=== PATIENT | female | born 1955 | race African-American/Black ===

== ENCOUNTER 2017-08-03 17:11 | Emergency (ER) | END 2017-08-03 19:20 | disposition left against medical advice (07) | LOC: ER 17:11 | DX: Z53.21 Procedure and treatment not carried out due to patient leaving prior to being seen by health care provider (principal) | CPT/HCPCS: 82962 ==

== ENCOUNTER → 2017-08-28 | Outpatient (CLI) | payer MEDICARE ==
[2017-08-28 12:29] LABS: ABSOLUTE MONOCYTES (AUTO) 0.2 10^3/uL (0.1-1.4); ABSOLUTE NEUT (AUTO) 1.4 10^3/uL (1.7-8.2); BASOPHILS % (AUTO) 0.3 % (0-2); HEMATOCRIT 41.7 % (36.0-47.0); HEMOGLOBIN 13.9 g/dL (12.0-15.5); MEAN CORPUSCULAR HEMOGLOBIN 30.8 pg (27.0-33.4); MEAN CORPUSCULAR HGB CONC 33.4 g/dL (32.0-36.0); MEAN CORPUSCULAR VOLUME 92 fl (80-97); MONOCYTES % (AUTO) 6.9 % (3-13); PLATELET COUNT 111 10^3/uL (150-450); RED BLOOD COUNT 4.53 10^6/uL (3.72-5.28); RED CELL DISTRIBUTION WIDTH 14.9 % (11.5-14.0); SEGMENTED NEUTROPHILS % (AUTO) 54.8 % (42-78); TOTAL CELLS COUNTED % (AUTO) 100 %; WHITE BLOOD COUNT 2.6 10^3/uL (4.0-10.5)
[2017-08-28 12:38] LABS: ALANINE AMINOTRANSFERASE 37 U/L (9-52); ALKALINE PHOSPHATASE 346 U/L (38-126); ANION GAP 19 (5-19); ASPARTATE AMINO TRANSFERASE 40 U/L (14-36); BILIRUBIN,DIRECT 0.4 mg/dL (0.0-0.4); BILIRUBIN,TOTAL 0.8 mg/dL (0.2-1.3); BLOOD UREA NITROGEN 24 mg/dL (7-20); CALCIUM 11.2 mg/dL (8.4-10.2); CARBON DIOXIDE 25 mmol/L (22-30); CHLORIDE 93 mmol/L (98-107); POTASSIUM 4.9 mmol/L (3.6-5.0); SODIUM 136.6 mmol/L (137-145); TOTAL PROTEIN 8.5 g/dL (6.3-8.2)
[2017-08-28 14:09] LABS: GLUCOSE 622 mg/dL (75-110)
== END ==
LOC: OD 11:05
PROVIDERS: ATTEND Family Medicine
DX: E78.2 Mixed hyperlipidemia (principal); D64.9 Anemia, unspecified; E11.9 Type 2 diabetes mellitus without complications
CPT/HCPCS: 36415; 80053; 82465; 83036; 85025

== ENCOUNTER 2017-09-08 16:09 | Inpatient (IN) | payer MEDICARE ==
[2017-09-08] MEDS ORDERED: NORMAL SALINE 1000 ML 1,000 ML IV PRN ×3 (16:53→19:42)
--- NOTE | 2017-09-08 16:56 | ER Document Report ---
ED General - General Chief Complaint: Altered Mental Status Stated Complaint: POSSIBLE HIGH BLOOD SUGAR Time Seen by Provider: 09/08/17 16:50 Mode of Arrival: Ambulatory Information source: Patient Notes: This is a 62-year-old female with a complicated medical history including insulin requiring diabetes, seizures, multiple myeloma (followed in [place] by oncology), lupus, CHF, hypertension. The patient was usual state of health until today when the patient's son states that she has been confused and has had generalized weakness. He states that she had a syncopal episode while in the car. EMS was called to the scene and the patient was hypotensive with a blood pressure of 94/63. TRAVEL OUTSIDE OF THE [place] IN LAST 30 DAYS: No - HPI Onset: This morning Onset/Duration: Gradual Quality of pain: No pain Severity: None Pain Level: Denies Associated symptoms: denies: Chills, Fever, Shortness of breath Exacerbated by: Denies Relieved by: Denies Similar symptoms previously: No Recently seen / treated by doctor: No - Related Data Allergies/Adverse Reactions: No Known Allergies Allergy (Verified 08/03/17 17:12) Past Medical History - General Information source: Relative - Social History Smoking Status: Never Smoker - Since son Cigarette use (# per day): No Chew tobacco use (# tins/day): No Frequency of alcohol use: None Drug Abuse: None Lives with: Family Family History: None Patient has suicidal ideation: No Patient has homicidal ideation: No - Past Medical History Cardiac Medical History: Reports: Hx Congestive Heart Failure Pulmonary Medical History: Reports: None EENT Medical History: Reports: None Neurological Medical History: Reports: Hx Seizures Endocrine Medical History: Reports: Hx Diabetes Mellitus Type 2 Renal/ Medical History: Reports: None Malignancy Medical History: Reports: Other - Multiple myeloma GI Medical History: Reports: None Musculoskeltal Medical History: Reports None Skin Medical History: Reports None Psychiatric Medical History: Reports: None Traumatic Medical History: Reports: None Infectious Medical History: Reports: None Past Surgical History: Reports: Other - Right chest wall port Review of Systems - Review of Systems Constitutional: denies: Chills, Fever EENT: No symptoms reported Cardiovascular: Syncope Respiratory: No symptoms reported Gastrointestinal: No symptoms reported Genitourinary: No symptoms reported Female Genitourinary: No symptoms reported Musculoskeletal: No symptoms reported Skin: No symptoms reported Hematologic/Lymphatic: No symptoms reported Neurological/Psychological: See HPI Physical Exam - Vital signs Vitals: Pulse Resp BP Pulse Ox 83 14 92/69 L 93 09/08/17 16:15 09/08/17 16:15 09/08/17 16:15 09/08/17 16:15 Notes: Physical exam: GENERAL: XT-year-old female, appears quite weak (generalized), 92/62, pulse 70 ( paced), O2 sat 98% on room air, temperature 92.9 rectally. HEAD: Atraumatic, normocephalic. EYES: Pupils equal round and reactive to light, extraocular movements intact, sclera anicteric, conjunctiva are normal. ENT: TMs normal, nares patent, oropharynx clear without exudates. Moist mucous membranes. NECK: Normal range of motion, supple without obvious mass or JVD. LUNGS: Breath sounds clear to auscultation bilaterally and equal. No wheezes rales or rhonchi. HEART: Regular rate and rhythm without murmurs, rubs or gallops. ABDOMEN: Soft, normoactive bowel sounds. No tenderness to palpation. No guarding, no rebound. No masses appreciated. Rectal: Brown stool, sent for study EXTREMITIES: Normal range of motion, no pitting or edema. No clubbing or cyanosis. NEUROLOGICAL: Patient appears generalized weak, there is no photophobia, her neck is supple and there is no pain elicited by moving her neck. Does appear to be moving all extremities. PSYCH: Normal mood, normal affect. SKIN: Warm, Dry, normal turgor, no rashes or lesions noted. Course - Re-evaluation Re-evalutation: 09/08/17 18:07 Note: The plan thus far includes: IV normal saline 2 L (warmed). Followed by half-normal saline with 20 KCl, warming blanket. IV insulin, IV insulin drip IV antibiotics for UTI (ceftriaxone) Lactic acid 1.5 Venous pH pending Thyroid function panel pending Admit to the ICU - Vital Signs Vital signs: Temp Pulse Resp BP Pulse Ox 62 13 91/69 L 100 09/08/17 17:15 09/08/17 23:37 09/08/17 23:37 09/08/17 23:37 - Laboratory Result Diagrams: 09/08/17 20:08 09/08/17 19:40 Laboratory results interpreted by me: 09/08/17 09/08/17 09/08/17 16:29 16:29 16:29 WBC 2.5 L RDW 15.4 H Plt Count 108 L Absolute Neutrophils 1.6 L Chloride 96 L Anion Gap 24 H BUN 34 H Creatinine 1.49 H Est GFR ( Amer) 43 L Est GFR (Non-Af Amer) 36 L Glucose 887 H* Calcium 10.4 H Magnesium 2.4 H Alkaline Phosphatase 300 H CK-MB (CK-2) Free T3 pg/mL Urine Protein Urine Glucose (UA) Urine Ketones Urine Blood Ur Leukocyte Esterase 09/08/17 09/08/17 09/08/17 16:29 16:29 17:02 WBC RDW Plt Count Absolute Neutrophils Chloride Anion Gap BUN Creatinine Est GFR ( Amer) Est GFR (Non-Af Amer) Glucose Calcium Magnesium Alkaline Phosphatase CK-MB (CK-2) 6.13 H Free T3 pg/mL 1.97 L Urine Protein 30 H Urine Glucose (UA) >=500 H Urine Ketones 20 H Urine Blood SMALL H Ur Leukocyte Esterase MODERATE H - Diagnostic Test Radiology reviewed: Image reviewed, Reports reviewed - X-ray shows no infiltrates, CT head shows no acute infarct (there is evidence of an old infarct ). - EKG Interpretation by Me Rhythm: Other - Paced rhythm with a ventricular rate of 63, 100% capture Critical Care Note - Critical Care Note Total time excluding time spent on procedures (mins): 90 Discharge - Discharge Clinical Impression: DKA, Acute kidney injury, UTI Condition: Serious Disposition: ADMITTED INPATIENT Admitting Provider: Hospitalist - Dr Erazo Unit Admitted: ICU
[2017-09-08 17:02] LABS: ABSOLUTE LYMPHOCYTES (AUTO) 0.8 10^3/uL (0.5-4.7); ABSOLUTE MONOCYTES (AUTO) 0.1 10^3/uL (0.1-1.4); ABSOLUTE NEUT (AUTO) 1.6 10^3/uL (1.7-8.2); BASOPHILS % (AUTO) 0.4 % (0-2); EOSINOPHILS % (AUTO) 0.2 % (0-6); HEMOGLOBIN 12.9 g/dL (12.0-15.5); LYMPHOCYTES % (AUTO) 30.6 % (13-45); MEAN CORPUSCULAR HEMOGLOBIN 30.6 pg (27.0-33.4); MEAN CORPUSCULAR HGB CONC 32.3 g/dL (32.0-36.0); MEAN CORPUSCULAR VOLUME 95 fl (80-97); MONOCYTES % (AUTO) 5.7 % (3-13); PLATELET COUNT 108 10^3/uL (150-450); RED BLOOD COUNT 4.21 10^6/uL (3.72-5.28); RED CELL DISTRIBUTION WIDTH 15.4 % (11.5-14.0); SEGMENTED NEUTROPHILS % (AUTO) 63.1 % (42-78); TOTAL CELLS COUNTED % (AUTO) 100 %; WHITE BLOOD COUNT 2.5 10^3/uL (4.0-10.5)
[2017-09-08 17:10] LABS: ALANINE AMINOTRANSFERASE 29 U/L (9-52); ALBUMIN 4.3 g/dL (3.5-5.0); ALKALINE PHOSPHATASE 300 U/L (38-126); ASPARTATE AMINO TRANSFERASE 21 U/L (14-36); BILIRUBIN,DIRECT 0.4 mg/dL (0.0-0.4); BILIRUBIN,TOTAL 0.5 mg/dL (0.2-1.3); BLOOD UREA NITROGEN 34 mg/dL (7-20); CALCIUM 10.4 mg/dL (8.4-10.2); CARBON DIOXIDE 22 mmol/L (22-30); CHLORIDE 96 mmol/L (98-107); POTASSIUM 3.9 mmol/L (3.6-5.0); SODIUM 141.9 mmol/L (137-145); TOTAL PROTEIN 7.4 g/dL (6.3-8.2)
[2017-09-08 17:32] LABS: APPEARANCE,URINE CLOUDY; BILIRUBIN,URINE NEGATIVE (NEGATIVE); COLOR,URINE YELLOW; GLUCOSE, URINE >=500 mg/dL (NEGATIVE); KETONES,URINE 20 mg/dL (NEGATIVE); LEUKOCYTE ESTERASE,URINE MODERATE (NEGATIVE); NITRITE,URINE NEGATIVE (NEGATIVE); PROTEIN,URINE 30 mg/dL (NEGATIVE); URINE SPECIFIC GRAVITY 1.032; UROBILINOGEN,URINE NEGATIVE mg/dL (<2.0)
[2017-09-08 17:34] LABS: ANION GAP 24 (5-19)
--- NOTE | 2017-09-08 17:34 | RADIOLOGY REPORT (SQ) ---
EXAM DESCRIPTION: CHEST SINGLE VIEW COMPLETED DATE/TIME: 09/08/2017 5:19 pm REASON FOR STUDY: syncope COMPARISON: None. EXAM PARAMETERS: NUMBER OF VIEWS: One view. TECHNIQUE: Single frontal radiographic view of the chest acquired. RADIATION DOSE: NA LIMITATIONS: None. FINDINGS: LUNGS AND PLEURA: No opacities, masses or pneumothorax. No pleural effusion. MEDIASTINUM AND HILAR STRUCTURES: No masses. Contour normal. HEART AND VASCULAR STRUCTURES: Heart normal in size. Normal vasculature. BONES: No acute findings. HARDWARE: Vascular access port. Pacemaker. OTHER: No other significant finding. IMPRESSION: NO ACUTE RADIOGRAPHIC FINDING IN THE CHEST. TECHNICAL DOCUMENTATION: JOB ID: [id number] [employer]- All Rights Reserved
[2017-09-08 17:35] LABS: GLUCOSE 887 mg/dL (75-110)
--- NOTE | 2017-09-08 17:36 | RADIOLOGY REPORT (SQ) ---
EXAM DESCRIPTION: CT HEAD WITHOUT COMPLETED DATE/TIME: 09/08/2017 5:25 pm REASON FOR STUDY: delta ms COMPARISON: None. TECHNIQUE: Axial images acquired through the brain without intravenous contrast. Images reviewed wi th bone, brain and subdural windows. Images stored on PACS. All CT scanners at this facility use dose modulation, iterative reconstruction, and/or weight based d osing when appropriate to reduce radiation dose to as low as reasonably achievable (ALARA). [facility]: Dose Right [facility]: CareDose [facility]: Dose Right [facility]: Teradose 4D [facility]: [employer] RADIATION DOSE: CT Rad equipment meets quality standard of care and radiation dose reduction techniq ues were employed. CTDIvol: 64.6 mGy. DLP: 1163 mGy-cm. mGy. LIMITATIONS: None. FINDINGS: VENTRICLES: Normal size and contour. CEREBRUM: No masses. No hemorrhage. No midline shift. No evidence for acute infarction. Normal gra y/white matter differentiation. Decreased attenuation in the posterior left parietal lobe. CEREBELLUM: No masses. No hemorrhage. No alteration of density. No evidence for acute infarction. EXTRAAXIAL SPACES: No fluid collections. No masses. ORBITS AND GLOBE: No intra- or extraconal masses. Normal contour of globe without masses. CALVARIUM: No fracture. PARANASAL SINUSES: No fluid or mucosal thickening. SOFT TISSUES: No mass or hematoma. OTHER: No other significant finding. IMPRESSION: DECREASED ATTENUATION IN THE POSTERIOR LEFT PARIETAL LOBE, PRESUMED DUE TO OLD INFARCT. NO APPARENT ACUTE FINDINGS. EVIDENCE OF ACUTE STROKE: NO. COMMENT: Quality ID # [id number]: Final reports with documentation of one or more dose reduction techniques (e.g., Automated exposure control, adjustment of the mA and/or kV according to patient size, use of iterative reconstruction technique) TECHNICAL DOCUMENTATION: JOB ID: [id number] [employer]- All Rights Reserved
[2017-09-08 17:38] LABS: CREATINE KINASE MB 6.13 ng/mL (<4.55)
[2017-09-08 17:40] LABS: TROPONIN I 0.056 ng/mL
[2017-09-08 17:44] LABS: FREE T3 1.97 pg/mL (2.77-5.27); FREE T4 (FREE THYROXINE) 1.36 ng/dL (0.78-2.19)
[2017-09-08] MEDS ORDERED: CEFTRIAXONE 1 GM/D5W RTU 1 GM/50 ML RTUPB IV ONE (17:50)
[2017-09-08] MEDS ORDERED: INSULIN REG, HUMAN 100 UNIT/ML 3 ML VIAL (PYX) IV ONE (17:54)
[2017-09-08] MEDS ORDERED: POTASSI CL 20 MEQ/1/2NS 1L 20 MEQ/1,000 ML RTUINJ IV ONE (17:55)
[2017-09-08] MEDS ORDERED: DEXTROSE 50%-WATER 25 GM/50 ML DISP.SYRIN IV PRN ×6 (17:56→21:29)
[2017-09-08] MEDS ORDERED: GLUCAGON,HUMAN RECOMB 1 MG INJ IM PRN ×2 (17:56→21:29)
[2017-09-08] MEDS ORDERED: DEXTROSE 40% GEL 15 GM TUBE PO PRN ×6 (17:56→21:29)
[2017-09-08] MEDS ORDERED: NORMAL SALINE 100 ML with INSULIN REGULAR, HUMAN 100 UNIT IV PRN ×2 (17:56)
[2017-09-08 17:58] LABS: THYROID STIMULATING HORMONE 0.62 uIU/mL (0.47-4.68)
--- NOTE | 2017-09-08 17:58 | EKG REPORT ---
SEVERITY:- ABNORMAL ECG - ATRIAL-SENSED VENTRICULAR-PACED RHYTHM : Confirmed by: Emanuel Iqbal MD 08-Sep-2017 17:57:41
[2017-09-08] MEDS ORDERED: CEFTRIAXONE INJ 1000 MG VIAL ONE (18:15)
[2017-09-08] MEDS ORDERED: GLUCAGON,HUMAN RECOMB 1 MG INJ SUBCUT PRN (19:18)
[2017-09-08] MEDS ORDERED: RINGERS SOLUTION,LACTATED 1,000 ML IV PRN (19:18)
[2017-09-08] MEDS ORDERED: INSULIN REG, HUMAN 100 UNIT/ML 3 ML VIAL (PYX) ONE (19:20)
[2017-09-08 19:31] LABS: VENOUS BLOOD BASE EXCESS -2.3 mmol/L; VENOUS BLOOD PCO2 53.5 mmHg (35-63); VENOUS BLOOD PH 7.29 (7.30-7.42)
[2017-09-08 20:11] LABS: BLOOD UREA NITROGEN 34 mg/dL (7-20); CALCIUM 10.1 mg/dL (8.4-10.2); CARBON DIOXIDE 24 mmol/L (22-30); CHLORIDE 103 mmol/L (98-107); LIPASE 710.3 U/L (23-300); PHOSPHORUS 3.4 mg/dL (2.5-4.5); POTASSIUM 3.4 mmol/L (3.6-5.0); SODIUM 147.8 mmol/L (137-145)
[2017-09-08 20:20] LABS: GLUCOSE 607 mg/dL (75-110)
[2017-09-08 20:21] LABS: ANION GAP 21 (5-19)
[2017-09-08 20:22] LABS: HEMOGLOBIN 12.7 g/dL (12.0-15.5); MEAN CORPUSCULAR HEMOGLOBIN 30.3 pg (27.0-33.4); MEAN CORPUSCULAR HGB CONC 32.6 g/dL (32.0-36.0); MEAN CORPUSCULAR VOLUME 93 fl (80-97); PLATELET COUNT 102 10^3/uL (150-450); RED BLOOD COUNT 4.19 10^6/uL (3.72-5.28); RED CELL DISTRIBUTION WIDTH 15.1 % (11.5-14.0); WHITE BLOOD COUNT 3.4 10^3/uL (4.0-10.5)
--- NOTE | 2017-09-08 20:33 | PDOC H&P ---
History of Present Illness Admission Date/PCP: 09/08/17 18:24 IVONE ZARATE, Patient complains of: Patient does not verbally complain of anything she indicates that she is very thirsty. History of Present Illness: BISHNU WAYNE is a 62 year old female This is a 62-year-old woman with a complicated medical history including insulin requiring diabetes, seizures, multiple myeloma (followed in [place] by oncology), lupus, CHF unclear type, hypertension. The patient was usual state of health until today when the patient's son states that she has been confused and has had generalized weakness. He states that she had a syncopal episode while in the car. EMS was called to the scene and the patient was hypotensive with a blood pressure of 94/63. She was brought to the ER where she was found to have a glucose of greater than 800. She also has urinary tract infection. At this point she is found to have hyperosmolar nonketotic state with urinary tract infection. Broader workup is in process. Patient is admitted to the hospitalist service and will be going to the ICU. Patient was able to arouse to speak with me some, actually she did not speak she just nodded. She did not answer all questions. She nodded yes to are you breathing okay. She nodded no to are you having any pain. She nodded yes to are you feeling weak. Mostly she was just pointing to her mouth and when I asked if she was thirsty she nodded yes. She was not able to give me her son's information. There is no other family present at the bedside. Her vitals are normal on my evaluation in the ER. I am unable to obtain review of systems other than what I have already dictated.. I have reviewed her labs and studies. Past Medical History Medical History: Other - By report patient has systemic lupus erythematosus Cardiac Medical History: Reports: Congestive Heart Failure, Other - This history is per chart review patient is unable to answer these question Neurological Medical History: Reports: Seizures Endocrine Medical History: Reports: Diabetes Mellitus Type 2 Malignancy Medical History: Reports: Other - Multiple myeloma, receiving oncology care in [place] Hematology: Reports: Anemia Past Surgical History Past Surgical History: Reports: Other - Patient has a right chest port. No other surgical history known. Social History Smoking Status: Unknown if Ever Smoked Hx Recreational Drug Use: No Family History Parental Family History Reviewed: No - Patient is not answering questions consistently, she is critically ill Children Family History Reviewed: No Sibling(s) Family History Reviewed.: No Medication/Allergy Allergies/Adverse Reactions: No Known Allergies Allergy (Verified 08/03/17 17:12) Review of Systems ROS unobtainable: - Not obtained review of systems completely. She answered a few questions by nodding and those answers are found in the history of present illness., ,  Physical Exam Vital Signs: Temp Pulse Resp BP Pulse Ox 62 12 92/62 L 99 09/08/17 17:15 09/08/17 17:15 09/08/17 17:15 09/08/17 17:15 Intake & Output 09/07/17 09/08/17 09/09/17 06:59 06:59 06:59 Output Total 300 Balance -300 Weight 66.4 kg General appearance: PRESENT: mild distress, thin. ABSENT: cooperative Head exam: PRESENT: atraumatic, normocephalic Eye exam: PRESENT: conjunctiva pink, PERRLA. ABSENT: scleral icterus Ear exam: PRESENT: normal external ear exam. ABSENT: bleeding Mouth exam: PRESENT: dry mucosa Neck exam: ABSENT: lymphadenopathy Respiratory exam: PRESENT: clear to auscultation ashley, unlabored. ABSENT: rales , wheezes Cardiovascular exam: PRESENT: RRR. ABSENT: systolic murmur Pulses: PRESENT: normal radial pulses GI/Abdominal exam: PRESENT: hypoactive bowel sounds, soft. ABSENT: distended, tenderness Rectal exam: PRESENT: deferred Extremities exam: ABSENT: pedal edema Musculoskeletal exam: ABSENT: full ROM Neurological exam: PRESENT: awake, oriented to person. ABSENT: oriented to place, oriented to situation Psychiatric exam: PRESENT: anxious Skin exam: PRESENT: dry - Skin is slightly cool Results Laboratory Results: 09/08/17 19:10 VBG pH 7.29 L VBG pCO2 53.5 VBG HCO3 25.0 VBG Base Excess -2.3 Impressions: Chest X-Ray 09/08/17 16:56 IMPRESSION: NO ACUTE RADIOGRAPHIC FINDING IN THE CHEST. Head CT 09/08/17 16:56 IMPRESSION: DECREASED ATTENUATION IN THE POSTERIOR LEFT PARIETAL LOBE, PRESUMED DUE TO OLD INFARCT. NO APPARENT ACUTE FINDINGS. EVIDENCE OF ACUTE STROKE: NO. Assessment & Plan - Diagnosis (1) Hyperosmolar non-ketotic state in patient with type 2 diabetes mellitus Is this a current diagnosis for this admission?: Yes Plan: Patient is being aggressively hydrated with normal saline, she is about to finish her second liter and a third is ordered. CBG has gone down from the 800s to the 500s. Insulin is on hold for now until we get the second liter of fluids and and then will restart the insulin drip.. We will watch closely for respiratory distress given her history of heart failure. CBGs every hour. Basic metabolic panel checks every 2 hours. IV access is poor possibly due to dehydration, port is accessed and surgeon consulted for CVC placement. Pt is protecting airway now. (2) Urinary tract infection Qualifiers: Urinary tract infection type: acute cystitis Is this a current diagnosis for this admission?: Yes Plan: Patient was given a dose of ceftriaxone. Blood cultures and urine culture are pending. Due to severity of illness I will cover her for Pseudomonas with cefepime. I have called the pharmacist to assure renal dosing. (3) Sepsis Is this a current diagnosis for this admission?: Yes Plan: Lactic acid is normal. She however acute metabolic encephalopathy and may have an early sepsis. She will be on cefepime and IV fluids. Cultures and urine culture are pending. Blood gases will be monitored closely. Right now her blood pressure and heart rate are normal. (4) Acute metabolic encephalopathy Is this a current diagnosis for this admission?: Yes Plan: This is probably secondary to hyperosmolar nonketotic state. Head CT is negative. She is moving all extremities spontaneously. Urinary tract infection is being treated. She is being fluid resuscitated. Labs are being monitored carefully. Will monitor closely clinically for other etiology of acute metabolic encephalopathy. Troponin is pending. (5) Dehydration Plan: Likely due to hyperosmolar nonketotic state. She is on her second liter of saline and the third is ordered. The nighttime hospitalist will watch her closely tonight. Black catheter has been placed to keep close track of ins and outs. (6) Type 2 diabetes mellitus Qualifiers: Diabetes mellitus complication status: with hyperosmolarity Diabetes mellitus complication detail: without coma Diabetes mellitus penitentiary insulin use: with emt intermediate use Plan: See above. (7) Multiple myeloma Is this a current diagnosis for this admission?: Yes Plan: Remission status unknown. She is being treated in [place] for multiple myeloma per report given to me by ED. We will try to learn more from family once we can reach them. (8) Lupus (systemic lupus erythematosus) Is this a current diagnosis for this admission?: Yes Plan: Unknown status. Will await family contact. (9) Hypothermia Qualifiers: Encounter type: initial encounter Qualified Code(s): T68.XXXA - Hypothermia , initial encounter Is this a current diagnosis for this admission?: Yes Plan: Patient is currently in a warming blanket and her temperature is increasing. Continue to use warm fluids. ICU transfer is pending. (10) Leukopenia Is this a current diagnosis for this admission?: Yes Plan: Possibly due to sepsis. Or due to acute illness. Repeat CBC is pending. She is being treated for urinary tract infection with cefepime. Will (11) Elevated serum creatinine Is this a current diagnosis for this admission?: Yes Plan: Baseline creatinine unknown. Will keep close track of her renal function. She is being fluid resuscitated. - Time Time Spent: Greater than 70 Minutes Critical Time spent with patient: 35 or more minutes - Inpatient Certification Based on my medical assessment, after consideration of the patient's comorbidities, presenting symptoms, or acuity I expect that the services needed warrant INPATIENT care.: Yes I certify that my determination is in accordance with my understanding of Medicare's requirements for reasonable and necessary INPATIENT services [42 CFR 412.3e].: Yes Medical Necessity: Significant Comorbidiites Make Outpatient Treatment Too Risky , Need Close Monitoring Due to Risk of Patient Decompensation, Need For IV Fluids, Need For Continuous Telemetry Monitoring, Need for IV Antibiotics, Risk of Complication if Not Cared For in Hospital Post Hospital Care: D/C Showroom Salesperson Documentation
[2017-09-08 21:02] LABS: VENOUS BLOOD BASE EXCESS -4.5 mmol/L; VENOUS BLOOD HCO3 24.3 mmol/L (20-32); VENOUS BLOOD PH 7.21 (7.30-7.42)
[2017-09-08] MEDS: POTASSI CL 20 MEQ/1/2NS 1L 20 MEQ/1,000 ML RTUINJ IV SCH (21:54)
[2017-09-08] MEDS: HEPARIN SOD (PORCINE) 5,000 UNIT/ML 1 ML SYRINGE SUBCUT SCH (21:58)
[2017-09-08] MEDS ORDERED: HUM INSULIN NPH/REG INSULIN HM 100 UNIT/1 ML 3 ML SUBCUT ONE (22:07)
--- NOTE | 2017-09-08 23:13 | PDOC CONSULTATION ---
Consultation Consult Date: 09/08/17 Attending physician:: Mariela López Consult reason:: needs central line History of Present Illness Admission Date/PCP: 09/08/17 18:24 IVONE ZARATE, History of Present Illness: 62 yo F type II diabetic patient admitted to the hospitalist with hyperosmolar nonketotic state. She has a mediport in the right internal jugular vein and a pacemaker in the left subclavian vein. She has poor peripheral access and needs multiple iv drips. A central line has been requested. Past Medical History Cardiac Medical History: Reports: Congestive Heart Failure, Other - This history is per chart review patient is unable to answer these question Neurological Medical History: Reports: Seizures Endocrine Medical History: Reports: Diabetes Mellitus Type 2 Malignancy Medical History: Reports: Other - Multiple myeloma, receiving oncology care in [place] Hematology: Reports: Anemia Past Surgical History Past Surgical History: Reports: Other - Patient has a right chest port. No other surgical history known. Social History Smoking Status: Unknown if Ever Smoked Hx Recreational Drug Use: No Family History Parental Family History Reviewed: No Children Family History Reviewed: Unknown Sibling(s) Family History Reviewed.: Unknown Medication/Allergy Allergies/Adverse Reactions: No Known Allergies Allergy (Verified 08/03/17 17:12) Review of Systems Constitutional: PRESENT: weight loss Cardiovascular: PRESENT: other - pacemaker status. ABSENT: as per HPI, chest pain, dyspnea on exertion, edema, orthropnea, palpitations Respiratory: ABSENT: as per HPI, cough, dyspnea, hemoptysis, sputum, other Gastrointestinal: ABSENT: abdominal pain, constipation, diarrhea, hematemesis, hematochezia, nausea, vomiting Genitourinary: ABSENT: dysuria, hematuria Neurological: ABSENT: abnormal gait, abnormal speech, confusion, dizziness, focal weakness, syncope Hematologic/Lymphatic: PRESENT: other - has myeloma Physical Exam Vital Signs: Temp Pulse Resp BP Pulse Ox 62 12 105/76 100 09/08/17 17:15 09/08/17 21:01 09/08/17 21:01 09/08/17 21:01 Intake & Output 09/07/17 09/08/17 09/09/17 06:59 06:59 06:59 Output Total 300 Balance -300 Weight 66.4 kg General appearance: PRESENT: thin Head exam: PRESENT: atraumatic, normocephalic Eye exam: PRESENT: conjunctiva pink, EOMI, PERRLA Ear exam: PRESENT: normal external ear exam Mouth exam: PRESENT: moist Neck exam: PRESENT: other - right IJ mediport in place. ABSENT: carotid bruit, full ROM, JVD, lymphadenopathy, meningismus, tenderness, thyromegaly, tracheal deviation, tracheostomy Cardiovascular exam: PRESENT: +S1, +S2, other - pacemaker present GI/Abdominal exam: PRESENT: soft Neurological exam: PRESENT: awake, other - follows commands Results Laboratory Results: 09/08/17 20:08 09/08/17 19:40 09/08/17 09/08/17 09/08/17 19:10 19:40 20:08 WBC 3.4 L RBC 4.19 Hgb 12.7 Hct 39.0 MCV 93 MCH 30.3 MCHC 32.6 RDW 15.1 H Plt Count 102 L VBG pH 7.29 L VBG pCO2 53.5 VBG HCO3 25.0 VBG Base Excess -2.3 Sodium 147.8 H Potassium 3.4 L Chloride 103 Carbon Dioxide 24 Anion Gap 21 H BUN 34 H Creatinine 1.35 H Est GFR ( Amer) 48 L Est GFR (Non-Af Amer) 40 L Glucose 607 H* Calcium 10.1 Phosphorus 3.4 Magnesium 2.4 H Lipase 710.3 H 09/08/17 20:55 WBC RBC Hgb Hct MCV MCH MCHC RDW Plt Count VBG pH 7.21 L VBG pCO2 62.0 VBG HCO3 24.3 VBG Base Excess -4.5 Sodium Potassium Chloride Carbon Dioxide Anion Gap BUN Creatinine Est GFR ( Amer) Est GFR (Non-Af Amer) Glucose Calcium Phosphorus Magnesium Lipase 09/08/17 20:08 Troponin I 0.055 Impressions: Chest X-Ray 09/08/17 16:56 IMPRESSION: NO ACUTE RADIOGRAPHIC FINDING IN THE CHEST. Head CT 09/08/17 16:56 IMPRESSION: DECREASED ATTENUATION IN THE POSTERIOR LEFT PARIETAL LOBE, PRESUMED DUE TO OLD INFARCT. NO APPARENT ACUTE FINDINGS. EVIDENCE OF ACUTE STROKE: NO. Assessment & Plan - Diagnosis (1) Phlebosclerosis Is this a current diagnosis for this admission?: Yes Plan: For central line insertion - Plan Summary Plan Summary: For central line insertion
--- NOTE | 2017-09-08 23:16 | PDOC PROGRESS REPORT ---
Bedside Procedure - History of Present Illness Indication for Procedure: Phlebosclerosis, Hyperosmolar nonketotic state requiring multiple iv infusi - Central Line Left Internal jugular Time completed: 22:55 Consent obtained: Yes - I spoke over the phone with the son and the nurses double signed Central line pre-insertion: Sterile PPE donned, Chloraprep applied, Sterile drapes applied Central line size (Fr.): 7 Central line lumen type: Triple Anesthetic type: 1% Lidocaine mL's of anesthesia: 5 Ultrasound guided: Yes - real-time ultrasound guidance CM at insertion site: 19 Line secured with sutures: Yes Central line post-insertion: Blood return from lumens, Biopatch applied, Sutured , Sterile dressing applied, Position confirmed w/ CXR Number of attempts: 1 Complications: No
--- NOTE | 2017-09-08 23:27 | RADIOLOGY REPORT (SQ) ---
EXAM DESCRIPTION: CHEST SINGLE VIEW COMPLETED DATE/TIME: 09/08/2017 11:14 pm REASON FOR STUDY: s/p central line insertion COMPARISON: Chest x-ray 09/08/2017 at 17:16 hours EXAM PARAMETERS: NUMBER OF VIEWS: One view. TECHNIQUE: Single frontal radiographic view of the chest acquired on 09/08/2017 at 22:50 hours. RADIATION DOSE: NA LIMITATIONS: None. FINDINGS: LUNGS AND PLEURA: No consolidation, pneumothorax or pleural effusion. MEDIASTINUM AND HILAR STRUCTURES: No masses. Contour normal. HEART AND VASCULAR STRUCTURES: Heart normal in size. Normal vasculature. BONES: No acute findings. HARDWARE: Interval placement of a left IJ central line with the tip overlying the region of the SVC. Right-sided Port-A-Cath has the tip overlying the region of the SVC. There is a left-sided pacemake r. IMPRESSION: Left IJ central line with the tip at the SVC. No pneumothorax. TECHNICAL DOCUMENTATION: JOB ID: [id number] [employer]- All Rights Reserved
[2017-09-08] MEDS: CEFEPIME 2 GM/D5W RTU 2 GM/50 ML RTUPB IV SCH (23:33)
[2017-09-09 00:27] LABS: ANION GAP 15 (5-19); BLOOD UREA NITROGEN 32 mg/dL (7-20); CALCIUM 9.8 mg/dL (8.4-10.2); CARBON DIOXIDE 26 mmol/L (22-30); CHLORIDE 106 mmol/L (98-107); GLUCOSE 282 mg/dL (75-110); POTASSIUM 3.6 mmol/L (3.6-5.0); SODIUM 147.3 mmol/L (137-145)
[2017-09-09] MEDS: POTASSI CL 20 MEQ/1/2NS 1L 20 MEQ/1,000 ML RTUINJ IV SCH (02:18)
[2017-09-09] MEDS: INSULIN LISPRO 100 UNIT/ML 3 ML VIAL SUBCUT PRN ×3 (04:08→22:08)
[2017-09-09] MEDS: HEPARIN SOD (PORCINE) 5,000 UNIT/ML 1 ML SYRINGE SUBCUT SCH (05:09)
[2017-09-09 06:06] LABS: ALANINE AMINOTRANSFERASE 24 U/L (9-52); ALBUMIN 3.3 g/dL (3.5-5.0); ALKALINE PHOSPHATASE 204 U/L (38-126); ANION GAP 8 (5-19); ASPARTATE AMINO TRANSFERASE 20 U/L (14-36); BILIRUBIN,DIRECT 0.3 mg/dL (0.0-0.4); BILIRUBIN,TOTAL 0.3 mg/dL (0.2-1.3); BLOOD UREA NITROGEN 29 mg/dL (7-20); CALCIUM 9.4 mg/dL (8.4-10.2); CARBON DIOXIDE 27 mmol/L (22-30); CHLORIDE 109 mmol/L (98-107); GLUCOSE 193 mg/dL (75-110); SODIUM 144.4 mmol/L (137-145); TOTAL PROTEIN 6.2 g/dL (6.3-8.2)
[2017-09-09 06:13] LABS: ABSOLUTE MONOCYTES (AUTO) 0.4 10^3/uL (0.1-1.4); ABSOLUTE NEUT (AUTO) 3.1 10^3/uL (1.7-8.2); BASOPHILS % (AUTO) 0.3 % (0-2); EOSINOPHILS % (AUTO) 0.3 % (0-6); HEMATOCRIT 31.8 % (36.0-47.0); LYMPHOCYTES % (AUTO) 22.3 % (13-45); MEAN CORPUSCULAR HEMOGLOBIN 31.2 pg (27.0-33.4); MEAN CORPUSCULAR HGB CONC 34.4 g/dL (32.0-36.0); MEAN CORPUSCULAR VOLUME 91 fl (80-97); MONOCYTES % (AUTO) 8.4 % (3-13); RED BLOOD COUNT 3.51 10^6/uL (3.72-5.28); RED CELL DISTRIBUTION WIDTH 15.4 % (11.5-14.0); SEGMENTED NEUTROPHILS % (AUTO) 68.7 % (42-78); TOTAL CELLS COUNTED % (AUTO) 100 %; WHITE BLOOD COUNT 4.6 10^3/uL (4.0-10.5)
[2017-09-09] MEDS ORDERED: POTASSI CL 20 MEQ/1/2NS 1L 20 MEQ/1,000 ML RTUINJ IV ONE (06:43)
[2017-09-09 07:12] LABS: PLATELET COUNT 88 10^3/uL (150-450)
[2017-09-09 07:13] LABS: ANISOCYTOSIS SLIGHT; OVALOCYTES 1+; PLATELET COMMENT DECREASED; PLATELET LARGE PRESENT; POIKILOCYTOSIS 2+; POLYCHROMASIA SLIGHT; SCHISTOCYTES 1+; TEAR DROP CELLS SLIGHT; TOXIC GRANULATION 1+
[2017-09-09 09:39] LABS: LIPASE 578.3 U/L (23-300); PHOSPHORUS 1.9 mg/dL (2.5-4.5)
[2017-09-09] MEDS: CEFEPIME 2 GM/D5W RTU 2 GM/50 ML RTUPB IV SCH (10:03)
[2017-09-09 10:56] LABS: VENOUS BLOOD BASE EXCESS 0.3 mmol/L; VENOUS BLOOD HCO3 25.1 mmol/L (20-32); VENOUS BLOOD PCO2 41.3 mmHg (35-63); VENOUS BLOOD PH 7.4 (7.30-7.42)
--- NOTE | 2017-09-09 16:00 | PDOC PROGRESS REPORT ---
Subjective Progress Note for:: 09/09/17 Subjective:: Patient again not speaking but she is more awake and alert, nodding yes or no, following commands. Indicates she is comfortable, feels better, no pain, breathing ok. Not anxious. Labs and diagnostic studies reviewed by me today. Due to patient not speaking is is difficiult to get full ROS. Reason For Visit: HYPEROSMOLAR NON KETOTIC STATE Physical Exam Vital Signs: Temp Pulse Resp BP Pulse Ox 62 35 H 118/76 100 09/08/17 17:15 09/09/17 15:01 09/09/17 15:01 09/09/17 15:01 Intake & Output 09/08/17 09/09/17 09/10/17 06:59 06:59 06:59 Output Total 300 Balance -300 Weight 66.4 kg 66.4 kg General appearance: PRESENT: no acute distress, thin Head exam: PRESENT: atraumatic, normocephalic Eye exam: PRESENT: conjunctiva pink, EOMI Ear exam: PRESENT: normal external ear exam. ABSENT: bleeding Mouth exam: PRESENT: dry mucosa Neck exam: PRESENT: other - left neck CVC in place, surrounding skin unconcerning. ABSENT: lymphadenopathy Respiratory exam: PRESENT: clear to auscultation ashley, unlabored. ABSENT: accessory muscle use, rales, tachypnea, wheezes Cardiovascular exam: PRESENT: RRR. ABSENT: systolic murmur Pulses: PRESENT: normal radial pulses Vascular exam: PRESENT: normal capillary refill GI/Abdominal exam: PRESENT: normal bowel sounds, soft, tenderness. ABSENT: distended, guarding Rectal exam: PRESENT: deferred Gentrourinary exam: PRESENT: indwelling catheter, other - clear yellow urine Extremities exam: ABSENT: pedal edema Musculoskeletal exam: ABSENT: tenderness Neurological exam: PRESENT: alert, awake, other - following commands Psychiatric exam: PRESENT: flat affect. ABSENT: agitated, anxious Results Laboratory Results: 09/09/17 05:35 09/09/17 05:35 09/08/17 09/08/17 09/08/17 19:10 19:40 20:08 WBC 3.4 L RBC 4.19 Hgb 12.7 Hct 39.0 MCV 93 MCH 30.3 MCHC 32.6 RDW 15.1 H Plt Count 102 L Seg Neutrophils % Lymphocytes % Monocytes % Eosinophils % Basophils % Absolute Neutrophils Absolute Lymphocytes Absolute Monocytes Absolute Eosinophils Absolute Basophils VBG pH 7.29 L VBG pCO2 53.5 VBG HCO3 25.0 VBG Base Excess -2.3 Sodium 147.8 H Potassium 3.4 L Chloride 103 Carbon Dioxide 24 Anion Gap 21 H BUN 34 H Creatinine 1.35 H Est GFR ( Amer) 48 L Est GFR (Non-Af Amer) 40 L Glucose 607 H* Calcium 10.1 Phosphorus 3.4 Magnesium 2.4 H Total Bilirubin AST ALT Alkaline Phosphatase Total Protein Albumin Lipase 710.3 H 09/08/17 09/08/17 09/09/17 20:55 23:58 05:35 WBC RBC Hgb Hct MCV MCH MCHC RDW Plt Count Seg Neutrophils % Lymphocytes % Monocytes % Eosinophils % Basophils % Absolute Neutrophils Absolute Lymphocytes Absolute Monocytes Absolute Eosinophils Absolute Basophils VBG pH 7.21 L VBG pCO2 62.0 VBG HCO3 24.3 VBG Base Excess -4.5 Sodium 147.3 H Cancelled Potassium 3.6 Cancelled Chloride 106 Cancelled Carbon Dioxide 26 Cancelled Anion Gap 15 Cancelled BUN 32 H Cancelled Creatinine 1.35 H Cancelled Est GFR ( Amer) 48 L Cancelled Est GFR (Non-Af Amer) 40 L Cancelled Glucose 282 H Cancelled Calcium 9.8 Cancelled Phosphorus Magnesium Total Bilirubin AST ALT Alkaline Phosphatase Total Protein Albumin Lipase 09/09/17 09/09/17 09/09/17 05:35 05:35 05:35 WBC 4.6 RBC 3.51 L Hgb 11.0 L Hct 31.8 L MCV 91 MCH 31.2 MCHC 34.4 RDW 15.4 H Plt Count 88 L Seg Neutrophils % 68.7 Lymphocytes % 22.3 Monocytes % 8.4 Eosinophils % 0.3 Basophils % 0.3 Absolute Neutrophils 3.1 Absolute Lymphocytes 1.0 Absolute Monocytes 0.4 Absolute Eosinophils 0.0 Absolute Basophils 0.0 VBG pH VBG pCO2 VBG HCO3 VBG Base Excess Sodium 144.4 Potassium 4.0 Chloride 109 H Carbon Dioxide 27 Anion Gap 8 BUN 29 H Creatinine 1.26 H Est GFR ( Amer) 52 L Est GFR (Non-Af Amer) 43 L Glucose 193 H Calcium 9.4 Phosphorus 1.9 L Magnesium 2.0 Total Bilirubin 0.3 AST 20 ALT 24 Alkaline Phosphatase 204 H Total Protein 6.2 L Albumin 3.3 L Lipase 578.3 H 09/09/17 10:38 WBC RBC Hgb Hct MCV MCH MCHC RDW Plt Count Seg Neutrophils % Lymphocytes % Monocytes % Eosinophils % Basophils % Absolute Neutrophils Absolute Lymphocytes Absolute Monocytes Absolute Eosinophils Absolute Basophils VBG pH 7.40 VBG pCO2 41.3 VBG HCO3 25.1 VBG Base Excess 0.3 Sodium Potassium Chloride Carbon Dioxide Anion Gap BUN Creatinine Est GFR ( Amer) Est GFR (Non-Af Amer) Glucose Calcium Phosphorus Magnesium Total Bilirubin AST ALT Alkaline Phosphatase Total Protein Albumin Lipase 09/08/17 20:08 Troponin I 0.055 Impressions: Chest X-Ray 09/08/17 16:56 IMPRESSION: NO ACUTE RADIOGRAPHIC FINDING IN THE CHEST. Head CT 09/08/17 16:56 IMPRESSION: DECREASED ATTENUATION IN THE POSTERIOR LEFT PARIETAL LOBE, PRESUMED DUE TO OLD INFARCT. NO APPARENT ACUTE FINDINGS. EVIDENCE OF ACUTE STROKE: NO. Assessment & Plan - Diagnosis (1) Hyperosmolar non-ketotic state in patient with type 2 diabetes mellitus Is this a current diagnosis for this admission?: Yes Plan: hydration status much improved, CBG at about 150 this am and insulin gtt stopped , making good urine. Treating UTI and investigating possible pancreatitis. (2) Urinary tract infection Qualifiers: Urinary tract infection type: acute cystitis Is this a current diagnosis for this admission?: Yes Plan: culture neg to date, cont ABX for now (3) Sepsis Is this a current diagnosis for this admission?: Yes Plan: parameters improved, vitals normal and hydration good, cont ABX and monitor closely (4) Acute metabolic encephalopathy Is this a current diagnosis for this admission?: Yes Plan: due to HHS, improving, I dont think she is back to baseline, will check with son to learn more about her baseline. No strong evidence for stroke, CT head neg. (5) Dehydration Plan: improved with fluids, making good urine, starting to eat. 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 Is this a current diagnosis for this admission?: Yes Plan: on short acting bolus insulin now, do nto yet know her home meds and will start her back on her home meds as appropriate (7) Multiple myeloma Is this a current diagnosis for this admission?: Yes Plan: per son, treatment has been on hold charan pappaso very poorly controlled diabetes, onc care in [place] up to now (8) Lupus (systemic lupus erythematosus) Is this a current diagnosis for this admission?: Yes Plan: awaiting med list (9) Hypothermia Qualifiers: Encounter type: initial encounter Qualified Code(s): T68.XXXA - Hypothermia , initial encounter Is this a current diagnosis for this admission?: Yes Plan: now normothermic (10) Leukopenia Is this a current diagnosis for this admission?: Yes Plan: improving back towards normal with treatment of acute illnesses (11) Elevated serum creatinine Is this a current diagnosis for this admission?: Yes Plan: improving with fluids, do not know her baseline, will cont to trend creatinine, avoid nephrotoxins and renally dose meds - Time Time Spent with patient: 35 or more minutes Medications reviewed and adjusted accordingly: Yes Anticipated discharge: Acute Rehab - Inpatient Certification Based on my medical assessment, after consideration of the patient's comorbidities, presenting symptoms, or acuity I expect that the services needed warrant INPATIENT care.: Yes I certify that my determination is in accordance with my understanding of Medicare's requirements for reasonable and necessary INPATIENT services [42 CFR 412.3e].: Yes Medical Necessity: Need Close Monitoring Due to Risk of Patient Decompensation, Need For IV Fluids, Need for Neurological Checks, Risk of Complication if Not Cared For in Hospital
[2017-09-09 16:42] LABS: ANION GAP 8 (5-19); BLOOD UREA NITROGEN 25 mg/dL (7-20); CALCIUM 9.6 mg/dL (8.4-10.2); CARBON DIOXIDE 24 mmol/L (22-30); CHLORIDE 107 mmol/L (98-107); GLUCOSE 274 mg/dL (75-110); POTASSIUM 3.9 mmol/L (3.6-5.0)
[2017-09-09] MEDS: NYSTATIN 500000 UNIT/5 ML UDCUP PO SCH ×2 (17:32→21:27)
--- NOTE | 2017-09-09 18:52 | RADIOLOGY REPORT (SQ) ---
EXAM DESCRIPTION: CT ABD/PELVIS NO ORAL OR IV COMPLETED DATE/TIME: 09/09/2017 6:38 pm REASON FOR STUDY: abd pain, elevated lipase COMPARISON: None. TECHNIQUE: CT scan of the abdomen and pelvis performed without intravenous or oral contrast. Images reviewed with lung, soft tissue, and bone windows. Reconstructed coronal and sagittal MPR images revi ewed. All images stored on PACS. All CT scanners at this facility use dose modulation, iterative reconstruction, and/or weight based d osing when appropriate to reduce radiation dose to as low as reasonably achievable (ALARA). [facility]: Dose Right [facility]: CareDose [facility]: Dose Right [facility]: Teradose 4D [facility]: Smart Short Fuze RADIATION DOSE: CT Rad equipment meets quality standard of care and radiation dose reduction techniq ues were employed. CTDIvol: 4.9 mGy. DLP: 253 mGy-cm.mGy. LIMITATIONS: Lack of IV and oral contrast limits in this patient who also has paucity of intra-abdom inal fat. FINDINGS: LOWER CHEST: No significant findings. No nodules or infiltrates. NON-CONTRASTED LIVER, SPLEEN, ADRENALS: Heterogeneous liver. Low density throughout the posterior as pect of the left lobe in the liver dome. There is a more focal lesion in the midst of this low densi ty which measures up to 5 cm and has some coarse internal calcifications. There are other scattered low density areas, some of which look mildly calcified. PANCREAS: Poorly seen. No regional fluid or gross inflammatory changes allowing for this. No region al fluid collections are detected. There calcifications in the pancreas, some of which may be vascul ar. GALLBLADDER: Not reliably identified. RIGHT KIDNEY AND URETER: No obstruction or gross stones. LEFT KIDNEY AND URETER: No obstruction or gross stones. AORTA AND RETROPERITONEUM: No overt suggestion of aortic aneurysm. Atherosclerotic calcification is present. BOWEL AND PERITONEAL CAVITY: Large amount of stool in the distal colon. APPENDIX: Not visualized. PELVIS, BLADDER, AND ABDOMINAL WALL:Fibroid enlarged uterus. Black catheter largely decompresses the bladder. BONES: Osteopenic. Mild wedged configuration of the vertebrae at the thoracic -lumbar junction. Acu ity indeterminate. OTHER: No other significant finding. IMPRESSION: 1. Limited study as above. 2. Partially calcified liver masses, suspicious. Does the p atient have known primary malignancy elsewhere? This could represent liver metastatic disease. 3. Stool retention. Fibroid uterus. Other findings as above. No overt bowel obstruction or urinary ob struction. TECHNICAL DOCUMENTATION: JOB ID: [id number] Quality ID # [id number]: Final reports with documentation of one or more dose reduction techniques (e.g., Au tomated exposure control, adjustment of the mA and/or kV according to patient size, use of iterative reconstruction technique) 2010 [employer]- All Rights Reserved
[2017-09-09] MEDS ORDERED: BISACODYL 10 MG SUPP.RECT PR ONE (20:00)
[2017-09-09] MEDS ORDERED: HUM INSULIN NPH/REG INSULIN HM 100 UNIT/1 ML 3 ML SUBCUT ONE (22:00)
[2017-09-09] MEDS: CEFEPIME HCL 2 GM in DEXTROSE 5%-WATER 50 ML IV SCH (22:04)
[2017-09-09 22:40] LABS: ANION GAP 7 (5-19); BLOOD UREA NITROGEN 24 mg/dL (7-20); CARBON DIOXIDE 25 mmol/L (22-30); CHLORIDE 106 mmol/L (98-107); GLUCOSE 211 mg/dL (75-110); POTASSIUM 3.5 mmol/L (3.6-5.0); SODIUM 138.1 mmol/L (137-145)
[2017-09-10 04:38] LABS: HEMATOCRIT 31.1 % (36.0-47.0); HEMOGLOBIN 10.7 g/dL (12.0-15.5); MEAN CORPUSCULAR HGB CONC 34.3 g/dL (32.0-36.0); MEAN CORPUSCULAR VOLUME 91 fl (80-97); PLATELET COUNT 71 10^3/uL (150-450); RED BLOOD COUNT 3.43 10^6/uL (3.72-5.28); RED CELL DISTRIBUTION WIDTH 15.6 % (11.5-14.0); WHITE BLOOD COUNT 3.7 10^3/uL (4.0-10.5)
[2017-09-10 04:48] LABS: ALANINE AMINOTRANSFERASE 26 U/L (9-52); ALBUMIN 3.2 g/dL (3.5-5.0); ALKALINE PHOSPHATASE 194 U/L (38-126); ANION GAP 6 (5-19); ASPARTATE AMINO TRANSFERASE 27 U/L (14-36); BILIRUBIN,DIRECT 0.4 mg/dL (0.0-0.4); BILIRUBIN,TOTAL 0.5 mg/dL (0.2-1.3); BLOOD UREA NITROGEN 22 mg/dL (7-20); CARBON DIOXIDE 27 mmol/L (22-30); CHLORIDE 108 mmol/L (98-107); GLUCOSE 96 mg/dL (75-110); PHOSPHORUS 1.6 mg/dL (2.5-4.5); POTASSIUM 3.5 mmol/L (3.6-5.0); SODIUM 140.7 mmol/L (137-145)
[2017-09-10] MEDS: POTASSI CL 20 MEQ/50 ML RIDER 20 MEQ/50 ML RTUPB IV SCH ×2 (09:02→11:17)
--- NOTE | 2017-09-10 09:09 | XCELERA REPORT ---
[address] [address] Transthoracic Echocardiogram Report Name: BISHNU WAYNE Age: 62 yrs Gender: Female : 1955 Patient Status: Inpatient Patient Location: [place] [id number]^[id number] Study Date: 09/09/2017 10:05 AM Weight: 146 lb Reason For Study: eval CHF Ordering Physician: ANSELMO KITCHEN Performed By: Racheal White Interpretation Summary No MS, Mild MR with no LA enlarged. very poor study, no Biplane LVEF measurement. LVEF severe impaired. LV Dys- synchrony in IVS, with multiple segmental regional wall motion abnormality,and ant wall poorly imaged. EF<30% and borderline LV enlargement and LV diastolic dysfunction. AV sclerosis, cannot r/o low gradient low output , with no AR. Mild TR with mild pulm hyppertension RVSP 31, RAP 8. MMode/2D Measurements & Calculations RVDd: 3.2 cm LVIDd: 4.7 cmFS: 25.6 % Ao root diam: 2.8 cm IVSd: 1.1 cm LVIDs: 3.5 cmEDV(Teich): 103.2 ml Ao root area: 6.2 cm2 LVPWd: 1.1 cmESV(Teich): 51.2 ml EF(Teich): 50.4 % LVOT diam: 2.1 cm LVOT area: 3.5 cm2 Doppler Measurements & Calculations MV E max mela: MV dec slope: Ao V2 max: LV V1 max P.5 cm/sec 108.1 cm/sec 3.3 mmHg MV A max mela: 994.3 cm/sec2 Ao max PG: LV V1 max: 42.3 cm/sec MV dec time: 4.7 mmHg 90.2 cm/sec MV E/A: 2.3 0.10 sec LUPILLO(V,D): 2.9 cm2 PA V2 max: TR max mela: 62.9 cm/sec 232.9 cm/sec PA max PG: TR max P.7 mmHg 1.6 mmHg Left Ventricle The left ventricle is borderline dilated. There is normal left ventricular wall thickness. Left ventricular systolic function is severely reduced. The Ejection Fraction estimate is 25-30%. driver license technician did not draw biplane EF. The E/E' ratio between the mitral E wave and the mitral annulus E' wave is 22. There is septal wall dyskinesis. There is anterior wall akinesis. There is lateral wall moderate hypokinesis. There is inferior wall severe hypokinesis. There is no thrombus. Right Ventricle The right ventricle is not well visualized secondary to technical limitations. Atria The right atrium is normal in size. The left atrial size is normal. The atrial septum is aneurysmal. Mitral Valve There is mild mitral annular calcification. The mitral valve leaflets are sclerotic and show some degree of functional abnormality. There is no evidence of mitral valve prolapse. There is no mitral valve stenosis. There is a mild amount of mitral regurgitation. Aortic Valve The aortic valve opens well. The aortic valve is sclerotic and shows some degree of functional abnormality. The aortic valve is trileaflet. Cannot exclude aortic valvular vegetation. There is no aortic valve stenosis. No aortic regurgitation is present. Tricuspid Valve The tricuspid valve is not well visualized, but is grossly normal. There is no tricuspid valve prolapse. There is no tricuspid stenosis. There is a mild amount of tricuspid regurgitation. Right ventricular systolic pressure is normal. Pulmonic Valve The pulmonic valve is not well visualized. Great Vessels The aortic root is normal size. Effusions There is no pericardial effusion. I WMSI = 2.86 % Normal = 0 Segments Size X - Cannot 2 - 4 - 1-2 small Interpret 1 - Normal Hypokinetic 3 - AkineticDyskinetic 3-5 moderate 5 - 6-14 large Aneurysmal 15-16 diffuse : ANSELMO KITCHEN > Emanuel Iqbal
[2017-09-10] MEDS: CEFEPIME HCL 2 GM in DEXTROSE 5%-WATER 50 ML IV SCH (09:43)
[2017-09-10] MEDS: NYSTATIN 500000 UNIT/5 ML UDCUP PO SCH ×4 (09:43→21:30)
[2017-09-10] MEDS ORDERED: BISACODYL 10 MG SUPP.RECT PR ONE ×2 (10:30→15:00)
[2017-09-10] MEDS: INSULIN LISPRO 100 UNIT/ML 3 ML VIAL SUBCUT PRN ×3 (12:27→22:45)
[2017-09-10] MEDS: POLYETHYLENE GLYCOL 3350 POWDER 17 GM/1 PACKET PO PRN (14:16)
[2017-09-10 15:02] LABS: ANION GAP 11 (5-19); BLOOD UREA NITROGEN 20 mg/dL (7-20); CALCIUM 10.4 mg/dL (8.4-10.2); CARBON DIOXIDE 23 mmol/L (22-30); CHLORIDE 106 mmol/L (98-107); GLUCOSE 249 mg/dL (75-110); SODIUM 140.1 mmol/L (137-145)
[2017-09-10 15:15] LABS: POTASSIUM 4.5 mmol/L (3.6-5.0)
--- NOTE | 2017-09-10 15:28 | PDOC PROGRESS REPORT ---
Subjective Progress Note for:: 09/10/17 Subjective:: Patient is able to speak today. She tells me she feels a lot better. No chest pain or difficulty breathing. She is ready to get out of bed and walk in the hallway. She would like to eat more than we are giving her. No new acute pain. No abdominal pain. No bowel movement. No headache or vision changes. Spotty memory of hospital days prior to now. remainder of ROS performed and negative. Laboratory tests and pertinent diagnostic studies have been reviewed by me today. Reason For Visit: HYPEROSMOLAR NON KETOTIC STATE Physical Exam Vital Signs: Temp Pulse Resp BP Pulse Ox 98.8 F 86 20 125/94 H 100 09/10/17 11:20 09/10/17 11:20 09/10/17 11:20 09/10/17 11:20 09/10/17 11:20 Intake & Output 09/09/17 09/10/17 09/11/17 06:59 06:59 06:59 Intake Total 278 0 Output Total 300 650 625 Balance -300 -372 -625 Weight 66.4 kg 65.9 kg General appearance: PRESENT: no acute distress, cooperative, disheveled Head exam: PRESENT: atraumatic, normocephalic Eye exam: PRESENT: conjunctiva pink Ear exam: PRESENT: normal external ear exam. ABSENT: bleeding Mouth exam: PRESENT: neck supple, other - Left neck central line in place without complication Neck exam: ABSENT: lymphadenopathy Respiratory exam: PRESENT: clear to auscultation ashley. ABSENT: rales, rhonchi, wheezes Cardiovascular exam: PRESENT: RRR, systolic murmur, other - Pacemaker implanted in chest. Port-A-Cath implanted in chest. Port-A-Cath accessed. GI/Abdominal exam: PRESENT: normal bowel sounds, soft. ABSENT: distended, guarding, tenderness Rectal exam: PRESENT: deferred Gentrourinary exam: PRESENT: indwelling catheter, other - Clear yellow urine Extremities exam: ABSENT: pedal edema Musculoskeletal exam: ABSENT: full ROM Neurological exam: PRESENT: alert, awake, oriented to person, oriented to situation Psychiatric exam: PRESENT: agitated, unusual affect Skin exam: PRESENT: dry, warm Results Laboratory Results: 09/10/17 04:05 09/10/17 14:30 09/09/17 09/09/17 09/09/17 16:10 16:10 21:50 WBC RBC Hgb Hct MCV MCH MCHC RDW Plt Count Sodium 139.0 138.1 Potassium 3.9 3.5 L Chloride 107 106 Carbon Dioxide 24 25 Anion Gap 8 7 BUN 25 H 24 H Creatinine 1.18 1.15 Est GFR ( Amer) 57 L 58 L Est GFR (Non-Af Amer) 47 L 48 L Glucose 274 H 211 H Calcium 9.6 10.0 Phosphorus Magnesium Total Bilirubin AST ALT Alkaline Phosphatase Total Protein Albumin Lipase 465.9 H 09/10/17 09/10/17 09/10/17 04:05 04:05 14:30 WBC 3.7 L RBC 3.43 L Hgb 10.7 L Hct 31.1 L MCV 91 MCH 31.0 MCHC 34.3 RDW 15.6 H Plt Count 71 L Sodium 140.7 140.1 Potassium 3.5 L 4.5 D Chloride 108 H 106 Carbon Dioxide 27 23 Anion Gap 6 11 BUN 22 H 20 Creatinine 1.09 1.06 Est GFR ( Amer) > 60 > 60 Est GFR (Non-Af Amer) 51 L 53 L Glucose 96 249 H Calcium 10.0 10.4 H Phosphorus 1.6 L Magnesium 1.9 Total Bilirubin 0.5 AST 27 ALT 26 Alkaline Phosphatase 194 H Total Protein 6.0 L Albumin 3.2 L Lipase 09/08/17 20:08 Troponin I 0.055 Impressions: Chest X-Ray 09/08/17 16:56 IMPRESSION: NO ACUTE RADIOGRAPHIC FINDING IN THE CHEST. Head CT 09/08/17 16:56 IMPRESSION: DECREASED ATTENUATION IN THE POSTERIOR LEFT PARIETAL LOBE, PRESUMED DUE TO OLD INFARCT. NO APPARENT ACUTE FINDINGS. EVIDENCE OF ACUTE STROKE: NO. Abdomen/Pelvis CT 09/09/17 00:00 IMPRESSION: 1. Limited study as above. 2. Partially calcified liver masses, suspicious. Does the patient have known primary malignancy elsewhere? This could represent liver metastatic disease. 3. Stool retention. Fibroid uterus. Other findings as above. No overt bowel obstruction or urinary obstruction. Assessment & Plan - Diagnosis (1) Hyperosmolar non-ketotic state in patient with type 2 diabetes mellitus Is this a current diagnosis for this admission?: Yes Plan: Patient has been rehydrated. She is off of her insulin drip. Hyperosmolar nonketotic state is resolved. (2) Urinary tract infection Qualifiers: Urinary tract infection type: acute cystitis Is this a current diagnosis for this admission?: Yes Plan: Patient is still on cefepime. Urine culture not yet final. (3) Sepsis Is this a current diagnosis for this admission?: Yes Plan: Resolved. (4) Acute metabolic encephalopathy Is this a current diagnosis for this admission?: Yes Plan: Patient has an unusual affect though now she is talking, she does not seem confused, staff is checking in with son about her baseline. (5) Dehydration Plan: Resolved. Making good urine. Drinking fluids. (6) Type 2 diabetes mellitus Qualifiers: Diabetes mellitus complication status: with hyperosmolarity Diabetes mellitus complication detail: without coma Diabetes mellitus retirement insulin use: with retirement use Is this a current diagnosis for this admission?: Yes Plan: Awaiting patient's med list so we can start her on her diabetic regimen. For now continue current care. CBGs well-controlled. (7) Multiple myeloma Is this a current diagnosis for this admission?: Yes Plan: Treatment for multiple myeloma has stalled secondary to other comorbid conditions. She typically receives care in [place]. (8) Lupus (systemic lupus erythematosus) Is this a current diagnosis for this admission?: Yes Plan: Unknown medical regimen. (9) Hypothermia Qualifiers: Encounter type: initial encounter Qualified Code(s): T68.XXXA - Hypothermia , initial encounter Is this a current diagnosis for this admission?: Yes Plan: Resolved. Patient is now normothermic. (10) Leukopenia Is this a current diagnosis for this admission?: Yes Plan: Patient's white blood cell count is trending back towards normal. We will continue to monitor. This was likely an acute reaction to her urinary tract infection and hyperosmolar nonketotic state. (11) Elevated serum creatinine Is this a current diagnosis for this admission?: Yes Plan: Improving with fluid hydration. We will continue to monitor creatinine. unKnown whether she has chronic kidney disease. (12) Constipation Is this a current diagnosis for this admission?: Yes Plan: I have ordered a Dulcolax suppository which the patient has refused. We have ordered MiraLAX as well. We will continue to encourage her to use medications to resolve her constipation. - Time Time Spent with patient: 35 or more minutes Medications reviewed and adjusted accordingly: Yes Anticipated discharge: Home with Homehealth - Inpatient Certification Based on my medical assessment, after consideration of the patient's comorbidities, presenting symptoms, or acuity I expect that the services needed warrant INPATIENT care.: Yes I certify that my determination is in accordance with my understanding of Medicare's requirements for reasonable and necessary INPATIENT services [42 CFR 412.3e].: Yes Medical Necessity: Significant Comorbidiites Make Outpatient Treatment Too Risky , Need Close Monitoring Due to Risk of Patient Decompensation, Risk of Complication if Not Cared For in Hospital
[2017-09-10] MEDS: LACOSAMIDE 50 MG TABLET PO SCH (21:29)
[2017-09-10] MEDS: GABAPENTIN 300 MG CAPSULE PO SCH (21:29)
[2017-09-10] MEDS: CARVEDILOL 3.125 MG TABLET PO SCH (21:29)
[2017-09-10] MEDS: ATORVASTATIN CALCIUM 40 MG TABLET PO SCH (21:29)
[2017-09-10] MEDS: LEVETIRACETAM 500 MG TABLET PO SCH (21:29)
[2017-09-10] MEDS ORDERED: INSULIN GLARGINE,HUM.REC.ANLOG 1,000 UNIT/10 ML UNIT SUBCUT SCH (22:00)
[2017-09-11 01:19] LABS: ANION GAP 11 (5-19); BLOOD UREA NITROGEN 20 mg/dL (7-20); CALCIUM 10.1 mg/dL (8.4-10.2); CARBON DIOXIDE 26 mmol/L (22-30); CHLORIDE 107 mmol/L (98-107); GLUCOSE 161 mg/dL (75-110); POTASSIUM 3.6 mmol/L (3.6-5.0); SODIUM 143.5 mmol/L (137-145)
[2017-09-11 04:35] LABS: ABSOLUTE LYMPHOCYTES (AUTO) 1.4 10^3/uL (0.5-4.7); ABSOLUTE MONOCYTES (AUTO) 0.4 10^3/uL (0.1-1.4); ABSOLUTE NEUT (AUTO) 1.6 10^3/uL (1.7-8.2); BASOPHILS % (AUTO) 0.5 % (0-2); EOSINOPHILS % (AUTO) 0.7 % (0-6); HEMATOCRIT 32.5 % (36.0-47.0); HEMOGLOBIN 11.1 g/dL (12.0-15.5); LYMPHOCYTES % (AUTO) 40.9 % (13-45); MEAN CORPUSCULAR HEMOGLOBIN 30.8 pg (27.0-33.4); MEAN CORPUSCULAR VOLUME 91 fl (80-97); MONOCYTES % (AUTO) 10.6 % (3-13); RED BLOOD COUNT 3.59 10^6/uL (3.72-5.28); RED CELL DISTRIBUTION WIDTH 15.6 % (11.5-14.0); SEGMENTED NEUTROPHILS % (AUTO) 47.3 % (42-78); TOTAL CELLS COUNTED % (AUTO) 100 %; WHITE BLOOD COUNT 3.4 10^3/uL (4.0-10.5)
[2017-09-11 04:43] LABS: ALANINE AMINOTRANSFERASE 20 U/L (9-52); ALBUMIN 3.4 g/dL (3.5-5.0); ALKALINE PHOSPHATASE 197 U/L (38-126); ANION GAP 9 (5-19); ASPARTATE AMINO TRANSFERASE 27 U/L (14-36); BILIRUBIN,DIRECT 0.1 mg/dL (0.0-0.4); BILIRUBIN,TOTAL 0.4 mg/dL (0.2-1.3); BLOOD UREA NITROGEN 20 mg/dL (7-20); CALCIUM 10.3 mg/dL (8.4-10.2); CARBON DIOXIDE 28 mmol/L (22-30); CHLORIDE 107 mmol/L (98-107); GLUCOSE 65 mg/dL (75-110); POTASSIUM 3.5 mmol/L (3.6-5.0)
[2017-09-11 05:08] LABS: PLATELET COUNT 82 10^3/uL (150-450)
[2017-09-11] MEDS: ASPIRIN 81 MG TABLET, ENT COATED PO SCH (09:47)
[2017-09-11] MEDS: POTASSI CL 20 MEQ/50 ML RIDER 20 MEQ/50 ML RTUPB IV SCH ×2 (09:47→12:31)
[2017-09-11] MEDS: LEVETIRACETAM 500 MG TABLET PO SCH ×2 (09:47→21:51)
[2017-09-11] MEDS: SERTRALINE HCL 50 MG TABLET PO SCH (09:47)
[2017-09-11] MEDS: NYSTATIN 500000 UNIT/5 ML UDCUP PO SCH ×4 (09:48→21:53)
[2017-09-11] MEDS: LACOSAMIDE 50 MG TABLET PO SCH ×2 (09:48→21:50)
[2017-09-11] MEDS: CARVEDILOL 3.125 MG TABLET PO SCH ×2 (09:49→21:50)
[2017-09-11] MEDS: INSULIN LISPRO 100 UNIT/ML 3 ML VIAL SUBCUT PRN ×2 (13:00→19:19)
[2017-09-11] MEDS ORDERED: NORMAL SALINE 1000 ML 500 ML IV PRN (13:29)
--- NOTE | 2017-09-11 13:59 | PDOC PROGRESS REPORT ---
Subjective Progress Note for:: 09/11/17 Subjective:: Ms. Perez reports that she feels really good except that she has not been able to have a bowel movement in a few days. She does feel very constipated. No chest pain or difficulty breathing. She thinks she is eating okay. No urinary difficulties. She is walking in the [place] with physical therapy. She states that she will probably go home with her son. She agrees to home physical therapy. No headache or vision changes. No tingling or numbness. No swelling. Remainder of review of systems is performed and is negative. I have reviewed her labs and pertinent diagnostic studies today. Reason For Visit: UTI POSSIBLE SEPSIS Physical Exam Vital Signs: Temp Pulse Resp BP Pulse Ox 97.4 F 71 18 91/64 L 96 09/11/17 03:21 09/11/17 07:53 09/11/17 07:53 09/11/17 07:53 09/11/17 09:41 Intake & Output 09/10/17 09/11/17 09/12/17 06:59 06:59 06:59 Intake Total 278 1297 Output Total 650 1925 Balance -372 -628 Weight 65.9 kg 62.1 kg General appearance: PRESENT: no acute distress, cooperative, thin Head exam: PRESENT: atraumatic, normocephalic Eye exam: PRESENT: conjunctiva pink, EOMI Ear exam: PRESENT: normal external ear exam Mouth exam: PRESENT: neck supple, other - Right central line and neck without complication Teeth exam: PRESENT: poor dentation Respiratory exam: PRESENT: clear to auscultation ashley. ABSENT: rales, rhonchi, wheezes Cardiovascular exam: PRESENT: RRR, systolic murmur Pulses: PRESENT: normal radial pulses, normal dorsalis pedis pul GI/Abdominal exam: PRESENT: normal bowel sounds, soft, other - mild tenderness to palpation. ABSENT: distended, guarding Rectal exam: PRESENT: deferred Extremities exam: PRESENT: pedal edema - trace Neurological exam: PRESENT: alert, awake, oriented to person, oriented to place , oriented to situation, other - slurred speech Psychiatric exam: PRESENT: anxious. ABSENT: agitated Skin exam: PRESENT: dry, intact, warm Results Laboratory Results: 09/11/17 04:11 09/11/17 04:11 09/10/17 09/11/17 09/11/17 14:30 00:50 04:11 WBC 3.4 L RBC 3.59 L Hgb 11.1 L Hct 32.5 L MCV 91 MCH 30.8 MCHC 34.0 RDW 15.6 H Plt Count 82 L Seg Neutrophils % 47.3 Lymphocytes % 40.9 Monocytes % 10.6 Eosinophils % 0.7 Basophils % 0.5 Absolute Neutrophils 1.6 L Absolute Lymphocytes 1.4 Absolute Monocytes 0.4 Absolute Eosinophils 0.0 Absolute Basophils 0.0 Sodium 140.1 143.5 Potassium 4.5 D 3.6 Chloride 106 107 Carbon Dioxide 23 26 Anion Gap 11 11 BUN 20 20 Creatinine 1.06 1.04 Est GFR ( Amer) > 60 > 60 Est GFR (Non-Af Amer) 53 L 54 L Glucose 249 H 161 H Calcium 10.4 H 10.1 Total Bilirubin AST ALT Alkaline Phosphatase Total Protein Albumin 09/11/17 04:11 WBC RBC Hgb Hct MCV MCH MCHC RDW Plt Count Seg Neutrophils % Lymphocytes % Monocytes % Eosinophils % Basophils % Absolute Neutrophils Absolute Lymphocytes Absolute Monocytes Absolute Eosinophils Absolute Basophils Sodium 144.0 Potassium 3.5 L Chloride 107 Carbon Dioxide 28 Anion Gap 9 BUN 20 Creatinine 1.06 Est GFR ( Amer) > 60 Est GFR (Non-Af Amer) 53 L Glucose 65 L Calcium 10.3 H Total Bilirubin 0.4 AST 27 ALT 20 Alkaline Phosphatase 197 H Total Protein 6.0 L Albumin 3.4 L 09/08/17 20:08 Troponin I 0.055 Impressions: Chest X-Ray 09/08/17 16:56 IMPRESSION: NO ACUTE RADIOGRAPHIC FINDING IN THE CHEST. Head CT 09/08/17 16:56 IMPRESSION: DECREASED ATTENUATION IN THE POSTERIOR LEFT PARIETAL LOBE, PRESUMED DUE TO OLD INFARCT. NO APPARENT ACUTE FINDINGS. EVIDENCE OF ACUTE STROKE: NO. Abdomen/Pelvis CT 09/09/17 00:00 IMPRESSION: 1. Limited study as above. 2. Partially calcified liver masses, suspicious. Does the patient have known primary malignancy elsewhere? This could represent liver metastatic disease. 3. Stool retention. Fibroid uterus. Other findings as above. No overt bowel obstruction or urinary obstruction. Assessment & Plan - Diagnosis (1) Hyperosmolar non-ketotic state in patient with type 2 diabetes mellitus Is this a current diagnosis for this admission?: Yes Plan: resolved, eating and drinking well, will cont to treat diabetes to optimize numbers (2) Urinary tract infection Qualifiers: Urinary tract infection type: acute cystitis Is this a current diagnosis for this admission?: Yes Plan: Asymptomatic. Urine culture came back negative. Antibiotics have been discontinued. (3) Sepsis Is this a current diagnosis for this admission?: Yes Plan: Sepsis parameters resolved. (4) Acute metabolic encephalopathy Is this a current diagnosis for this admission?: Yes Plan: Per the patient's son her mental status has returned to her baseline. He had acute metabolic encephalopathy secondary to her hyper osmolar nonketotic state. She is now rehydrated and thinking clearly. (5) Dehydration Plan: Blood pressure is a little bit low this morning. She is eating and drinking better each day but not as she normally does. I am going to give her a 500 mL LR bolus and follow blood pressure. Her urine output is improving. (6) Type 2 diabetes mellitus Qualifiers: Diabetes mellitus complication status: with hyperosmolarity Diabetes mellitus complication detail: without coma Diabetes mellitus intermediate frame tender insulin use: with snf use Qualified Code(s): E11.00 - Type 2 diabetes mellitus with hyperosmolarity without nonketotic hyperglycemic-hyperosmolar coma (NKHHC); Z79.4 - extermination inspector (current) use of insulin; Z79.4 - extermination inspector ( current) use of insulin; Z79.4 - extermination inspector (current) use of insulin; Z79.4 - residential (current) use of insulin Is this a current diagnosis for this admission?: Yes Plan: CBGs are now well controlled. She will continue on her short acting and long- acting insulin. Continue diabetic diet. (7) Multiple myeloma Is this a current diagnosis for this admission?: Yes Plan: Patient has had multiple myeloma for years. Per her son she has an oncologist in [place]. She is not receiving treatment at this time. (8) Lupus (systemic lupus erythematosus) Is this a current diagnosis for this admission?: Yes Plan: Patient's disease process is stable per her son. She is not on any medications at this time. We will discharge her back to her regular doctors. (9) Leukopenia Is this a current diagnosis for this admission?: Yes Plan: Patient's leukopenia persists and is mild. We will continue to follow. (10) Elevated serum creatinine Is this a current diagnosis for this admission?: Yes Plan: BUN and creatinine have returned to normal. This was an acute kidney injury, likely prerenal. (11) Constipation Is this a current diagnosis for this admission?: Yes Plan: Unresolved. Soapsuds enema ordered. (12) Thrombocytopenia Is this a current diagnosis for this admission?: Yes Plan: Not entirely clear etiology, possibly due to acute illness. Platelets have increased today. I did restart her aspirin but I did not start her Plavix. I have spoken with her son about the possible complications related to not taking her Plavix but we also discussed the dangers of using Plavix in the setting of thrombocytopenia. He states understanding. We will continue to monitor platelets and start her Plavix when it is safe. She is on Plavix for history of stroke. (13) Slurred speech Is this a current diagnosis for this admission?: Yes Plan: Patient does have slurred speech. Her son reports that is a little bit worse than her norm. She is high risk for stroke. She has been off of her Plavix. Other than the slurred speech there are not focal deficits. I will repeat her CT head. In the ER initial CT head was negative for stroke. She may need acute rehab for speech therapy. (14) Seizure disorder Is this a current diagnosis for this admission?: Yes Plan: Continue Keppra and Vimpat - Time Time Spent with patient: 35 or more minutes Medications reviewed and adjusted accordingly: Yes Anticipated discharge: Acute Rehab Within: within 48 hours - Patient will likely need acute rehab for PT and speech therapy - Inpatient Certification Based on my medical assessment, after consideration of the patient's comorbidities, presenting symptoms, or acuity I expect that the services needed warrant INPATIENT care.: Yes I certify that my determination is in accordance with my understanding of Medicare's requirements for reasonable and necessary INPATIENT services [42 CFR 412.3e].: Yes Medical Necessity: Significant Comorbidiites Make Outpatient Treatment Too Risky , Need Close Monitoring Due to Risk of Patient Decompensation, Need For IV Fluids, Risk of Complication if Not Cared For in Hospital
--- NOTE | 2017-09-11 14:37 | RADIOLOGY REPORT (SQ) ---
EXAM DESCRIPTION: CT HEAD WITHOUT COMPLETED DATE/TIME: 09/11/2017 2:20 pm REASON FOR STUDY: eval for stroke or bleed due to slurring COMPARISON: 09/08/2017 TECHNIQUE: Axial images acquired through the brain without intravenous contrast. Images reviewed wi th bone, brain and subdural windows. Images stored on PACS. All CT scanners at this facility use dose modulation, iterative reconstruction, and/or weight based d osing when appropriate to reduce radiation dose to as low as reasonably achievable (ALARA). [facility]: Dose Right [facility]: CareDose [facility]: Dose Right [facility]: Teradose 4D [facility]: [employer] RADIATION DOSE: CT Rad equipment meets quality standard of care and radiation dose reduction techniq ues were employed. CTDIvol: 49.0 mGy. DLP: 881 mGy-cm. mGy. LIMITATIONS: None. FINDINGS: VENTRICLES: Normal size and contour. CEREBRUM: No masses. No hemorrhage. No midline shift. The previously described area of decreased a ttenuation involving the posterior left parietal lobe appears stable. Again this is presumably relat ed to an area of prior infarction. No acute changes are identified. CEREBELLUM: No masses. No hemorrhage. No alteration of density. No evidence for acute infarction. There is relative low density in the brain stem unchanged from the previous study and presumably rel ated to small vessel ischemic changes. EXTRAAXIAL SPACES: No fluid collections. No masses. ORBITS AND GLOBE: No intra- or extraconal masses. Normal contour of globe without masses. CALVARIUM: No fracture. PARANASAL SINUSES: No fluid or mucosal thickening. SOFT TISSUES: No mass or hematoma. OTHER: No other significant finding. IMPRESSION: No significant interval changes compared to the previous study. No acute changes. Othe r findings as noted above EVIDENCE OF ACUTE STROKE: NO. COMMENT: Quality ID # [id number]: Final reports with documentation of one or more dose reduction techniques (e.g., Automated exposure control, adjustment of the mA and/or kV according to patient size, use of iterative reconstruction technique) TECHNICAL DOCUMENTATION: JOB ID: [id number] [employer]- All Rights Reserved
[2017-09-11] MEDS ORDERED: NORMAL SALINE 500 ML IV ONE (15:00)
[2017-09-11 19:21] LABS: ANION GAP 7 (5-19); BLOOD UREA NITROGEN 20 mg/dL (7-20); CALCIUM 9.6 mg/dL (8.4-10.2); CARBON DIOXIDE 26 mmol/L (22-30); CHLORIDE 105 mmol/L (98-107); GLUCOSE 282 mg/dL (75-110); POTASSIUM 3.7 mmol/L (3.6-5.0); SODIUM 137.8 mmol/L (137-145)
[2017-09-11] MEDS: INSULIN GLARGINE,HUM.REC.ANLOG 1,000 UNIT/10 ML UNIT SUBCUT SCH (21:50)
[2017-09-11] MEDS: ATORVASTATIN CALCIUM 40 MG TABLET PO SCH (21:50)
[2017-09-11] MEDS: GABAPENTIN 300 MG CAPSULE PO SCH (21:51)
[2017-09-12 04:43] LABS: HEMATOCRIT 30.6 % (36.0-47.0); HEMOGLOBIN 10.5 g/dL (12.0-15.5); MEAN CORPUSCULAR HEMOGLOBIN 31.2 pg (27.0-33.4); MEAN CORPUSCULAR HGB CONC 34.4 g/dL (32.0-36.0); MEAN CORPUSCULAR VOLUME 91 fl (80-97); PLATELET COUNT 62 10^3/uL (150-450); RED BLOOD COUNT 3.37 10^6/uL (3.72-5.28); RED CELL DISTRIBUTION WIDTH 15.4 % (11.5-14.0); WHITE BLOOD COUNT 4.5 10^3/uL (4.0-10.5)
[2017-09-12 04:58] LABS: ANION GAP 7 (5-19); BLOOD UREA NITROGEN 21 mg/dL (7-20); CALCIUM 9.8 mg/dL (8.4-10.2); CARBON DIOXIDE 26 mmol/L (22-30); CHLORIDE 106 mmol/L (98-107); GLUCOSE 198 mg/dL (75-110); POTASSIUM 4.1 mmol/L (3.6-5.0); SODIUM 138.6 mmol/L (137-145)
[2017-09-12] MEDS: LEVETIRACETAM 500 MG TABLET PO SCH ×2 (09:35→22:20)
[2017-09-12] MEDS: SERTRALINE HCL 50 MG TABLET PO SCH (09:35)
[2017-09-12] MEDS: CARVEDILOL 3.125 MG TABLET PO SCH ×2 (09:35→22:21)
[2017-09-12] MEDS: NYSTATIN 500000 UNIT/5 ML UDCUP PO SCH ×4 (09:35→22:20)
[2017-09-12] MEDS: ASPIRIN 81 MG TABLET, ENT COATED PO SCH (09:35)
[2017-09-12] MEDS: LACOSAMIDE 50 MG TABLET PO SCH ×2 (09:36→22:21)
[2017-09-12] MEDS: INSULIN LISPRO 100 UNIT/ML 3 ML VIAL SUBCUT PRN ×3 (12:21→22:20)
[2017-09-12 15:03] LABS: ANION GAP 6 (5-19); BLOOD UREA NITROGEN 20 mg/dL (7-20); CALCIUM 9.3 mg/dL (8.4-10.2); CARBON DIOXIDE 27 mmol/L (22-30); CHLORIDE 106 mmol/L (98-107); GLUCOSE 147 mg/dL (75-110)
--- NOTE | 2017-09-12 17:39 | PDOC PROGRESS REPORT ---
Subjective Progress Note for:: 09/12/17 Subjective:: 62-year-old female who presented with hyperosmolar nonketotic state and acute metabolic encephalopathy. She is being treated with IV fluids. Complaints at present Reason For Visit: UTI POSSIBLE SEPSIS Physical Exam Vital Signs: Temp Pulse Resp BP Pulse Ox 97.5 F 76 16 72/58 L 93 09/12/17 11:33 09/12/17 14:00 09/12/17 11:33 09/12/17 11:33 09/12/17 11:33 Intake & Output 09/11/17 09/12/17 09/13/17 06:59 06:59 06:59 Intake Total 1297 1674 Output Total 1925 0 Balance -628 1674 Weight 62.1 kg 66.4 kg General appearance: PRESENT: no acute distress Eye exam: ABSENT: scleral icterus Mouth exam: PRESENT: moist Neck exam: ABSENT: tenderness Respiratory exam: PRESENT: clear to auscultation ashley, unlabored Cardiovascular exam: PRESENT: RRR GI/Abdominal exam: PRESENT: normal bowel sounds, soft. ABSENT: guarding, tenderness Rectal exam: PRESENT: deferred Extremities exam: ABSENT: pedal edema Neurological exam: PRESENT: alert, awake Psychiatric exam: PRESENT: normal mood Skin exam: ABSENT: rash Results Laboratory Results: 09/12/17 04:05 09/12/17 14:35 09/11/17 09/12/17 09/12/17 18:25 04:05 04:05 WBC 4.5 RBC 3.37 L Hgb 10.5 L Hct 30.6 L MCV 91 MCH 31.2 MCHC 34.4 RDW 15.4 H Plt Count 62 L Sodium 137.8 138.6 Potassium 3.7 4.1 Chloride 105 106 Carbon Dioxide 26 26 Anion Gap 7 7 BUN 20 21 H Creatinine 0.94 0.91 Est GFR ( Amer) > 60 > 60 Est GFR (Non-Af Amer) > 60 > 60 Glucose 282 H 198 H Calcium 9.6 9.8 Magnesium 1.8 09/12/17 14:35 WBC RBC Hgb Hct MCV MCH MCHC RDW Plt Count Sodium 139.0 Potassium 4.0 Chloride 106 Carbon Dioxide 27 Anion Gap 6 BUN 20 Creatinine 0.96 Est GFR ( Amer) > 60 Est GFR (Non-Af Amer) 59 L Glucose 147 H Calcium 9.3 Magnesium 09/08/17 20:08 Troponin I 0.055 Impressions: Chest X-Ray 09/08/17 16:56 IMPRESSION: NO ACUTE RADIOGRAPHIC FINDING IN THE CHEST. Abdomen/Pelvis CT 09/09/17 00:00 IMPRESSION: 1. Limited study as above. 2. Partially calcified liver masses, suspicious. Does the patient have known primary malignancy elsewhere? This could represent liver metastatic disease. 3. Stool retention. Fibroid uterus. Other findings as above. No overt bowel obstruction or urinary obstruction. Head CT 09/11/17 00:00 IMPRESSION: No significant interval changes compared to the previous study. No acute changes. Other findings as noted above EVIDENCE OF ACUTE STROKE: NO. 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 Continue current management for diabetes. Dehydration and acute renal failure have resolved. She was severely constipated and this resolved with an enema.
[2017-09-12] MEDS ORDERED: NORMAL SALINE 1000 ML 1,000 ML IV PRN ×2 (18:51→18:53)
[2017-09-12] MEDS: INSULIN GLARGINE,HUM.REC.ANLOG 1,000 UNIT/10 ML UNIT SUBCUT SCH (22:20)
[2017-09-12] MEDS: GABAPENTIN 300 MG CAPSULE PO SCH (22:21)
[2017-09-12] MEDS: ATORVASTATIN CALCIUM 40 MG TABLET PO SCH (22:21)
[2017-09-13 04:55] LABS: HEMATOCRIT 27.1 % (36.0-47.0); HEMOGLOBIN 9.3 g/dL (12.0-15.5); MEAN CORPUSCULAR HEMOGLOBIN 31.3 pg (27.0-33.4); MEAN CORPUSCULAR HGB CONC 34.3 g/dL (32.0-36.0); MEAN CORPUSCULAR VOLUME 91 fl (80-97); RED BLOOD COUNT 2.97 10^6/uL (3.72-5.28); RED CELL DISTRIBUTION WIDTH 15.5 % (11.5-14.0); WHITE BLOOD COUNT 4.7 10^3/uL (4.0-10.5)
[2017-09-13 04:59] LABS: PLATELET COUNT 62 10^3/uL (150-450)
[2017-09-13 05:37] LABS: PLATELET ESTIMATE 54 10^3/uL (150-450)
[2017-09-13] MEDS: NYSTATIN 500000 UNIT/5 ML UDCUP PO SCH ×4 (10:14→22:21)
[2017-09-13] MEDS: LEVETIRACETAM 500 MG TABLET PO SCH ×2 (10:14→22:19)
[2017-09-13] MEDS: ASPIRIN 81 MG TABLET, ENT COATED PO SCH (10:15)
[2017-09-13] MEDS: CARVEDILOL 3.125 MG TABLET PO SCH ×2 (10:15→22:20)
[2017-09-13] MEDS: SERTRALINE HCL 50 MG TABLET PO SCH (10:15)
[2017-09-13] MEDS: LACOSAMIDE 50 MG TABLET PO SCH ×2 (10:15→22:19)
[2017-09-13] MEDS: INSULIN LISPRO 100 UNIT/ML 3 ML VIAL SUBCUT PRN ×3 (12:44→22:20)
[2017-09-13] MEDS: HYDROCORTISONE SOD SUCCINATE INJ/PF 100 MG/2 ML SDV IV SCH (17:28)
--- NOTE | 2017-09-13 20:03 | PROGRESS NOTE E ---
Progress Note NAME: BISHNU WAYNE : 1955 AGE: 62Y DATE: 09/13/2017 ROOM: 332 SUBJECTIVE: The patient is lying in bed. According to the patient she has had episodes in the past where her body temperature has been quite difficult to raise. The patient denies any known history of adrenal insufficiency. The patient herself denies any nausea, vomiting, diarrhea. No dizziness, chest pain, just describes herself as overall quite weak and he patient does not voice any other concerns at this time. REVIEW OF SYSTEMS: The rest of the review of systems negative. MEDICATIONS: Have been reviewed. OBJECTIVE: GENERAL: The patient is a 62-year-old -[place] female who is awake, alert, and oriented to person, time, place, situation. She is verbal, conversational. Does not appear to be in any acute distress. VITAL SIGNS: Temperature is 99.3, pulse 82, respirations 22, blood pressure is 95/59, oxygen saturation is 99% on room air. SKIN: Warm and dry. No rash. She is not diaphoretic. HEENT: Pupils equal, round and reactive to light and accommodation. Conjunctivae are pink. No evidence of JVP. The patient had very poor dentition with loose teeth noted. CARDIOVASCULAR: Heart is regular. There is no murmur or rub. CHEST: Clear, symmetrical, unlabored. ABDOMEN: Soft, nontender, nondistended. BACK: No CVA tenderness, sacral edema. EXTREMITIES: No clubbing, cyanosis, edema. PSYCHIATRIC: Appropriate affect, pleasant mood. LABORATORY DATA: Hematology obtained on 09/13/2017; WBCs are 4.7, hemoglobin is 9.3, hematocrit is 27.1, platelet count 52,000. Chemistry obtained on 09/13/2017; glucose 135. IMPRESSION AND PLAN: 1. ACUTE RENAL FAILURE. This is resolved. 2. MULTIPLE MYELOMA. This is stable, could follow up as an outpatient. 3. LUPUS. Follow up as outpatient. 4. URINARY TRACT INFECTION WITH SEPSIS. Continue current coverage. The patient has completed 5 days of antibiotic coverage. 5. HYPOTHERMIA. Possibly secondary to sepsis, however, this along with the patient's thrombocytopenia and concern for some underlying adrenal issues, especially because the patient has been so gravely ill and has had this issue in the past. Will obtain a cortisol level and empirically treat with steroids and follow. 6. DIABETES MELLITUS TYPE 2. Continue sliding scale coverage. 7. CONSTIPATION. This did improve with the enema. CODE STATUS: The patient is a full code. DISPOSITION: Depending on the patient's symptomatology and diagnostic findings will reevaluate in the a.m. TIME SPENT: On this follow up, including assessment and plan, physical examination, patient education, review of records is 35 minutes. DICTATING PHYSICIAN: IVONE AMEZQUITA [id number] PHY#: [id number] ID: [id number] JOB#: [id number] ACCT: [id number] cc: >
[2017-09-13] MEDS: GABAPENTIN 300 MG CAPSULE PO SCH (22:19)
[2017-09-13] MEDS: ATORVASTATIN CALCIUM 40 MG TABLET PO SCH (22:20)
[2017-09-13] MEDS: INSULIN GLARGINE,HUM.REC.ANLOG 1,000 UNIT/10 ML UNIT SUBCUT SCH (22:20)
[2017-09-14] MEDS: HYDROCORTISONE SOD SUCCINATE INJ/PF 100 MG/2 ML SDV IV SCH ×4 (01:47→22:31)
[2017-09-14 05:18] LABS: ABSOLUTE LYMPHOCYTES (AUTO) 0.4 10^3/uL (0.5-4.7); ABSOLUTE MONOCYTES (AUTO) 0.1 10^3/uL (0.1-1.4); ABSOLUTE NEUT (AUTO) 3.4 10^3/uL (1.7-8.2); BASOPHILS % (AUTO) 0.1 % (0-2); HEMATOCRIT 28.6 % (36.0-47.0); HEMOGLOBIN 9.6 g/dL (12.0-15.5); LYMPHOCYTES % (AUTO) 10.8 % (13-45); MEAN CORPUSCULAR HEMOGLOBIN 30.9 pg (27.0-33.4); MEAN CORPUSCULAR HGB CONC 33.5 g/dL (32.0-36.0); MEAN CORPUSCULAR VOLUME 92 fl (80-97); MONOCYTES % (AUTO) 1.7 % (3-13); RED CELL DISTRIBUTION WIDTH 15.3 % (11.5-14.0); SEGMENTED NEUTROPHILS % (AUTO) 87.4 % (42-78); TOTAL CELLS COUNTED % (AUTO) 100 %; WHITE BLOOD COUNT 3.9 10^3/uL (4.0-10.5)
[2017-09-14 05:22] LABS: ANION GAP 9 (5-19); BLOOD UREA NITROGEN 21 mg/dL (7-20); CARBON DIOXIDE 24 mmol/L (22-30); CHLORIDE 103 mmol/L (98-107); GLUCOSE 375 mg/dL (75-110); POTASSIUM 4.7 mmol/L (3.6-5.0)
[2017-09-14 05:55] LABS: PLATELET COUNT 88 10^3/uL (150-450)
[2017-09-14] MEDS: INSULIN LISPRO 100 UNIT/ML 3 ML VIAL SUBCUT PRN (09:21)
[2017-09-14] MEDS: CARVEDILOL 3.125 MG TABLET PO SCH ×2 (09:21→22:30)
[2017-09-14] MEDS: LEVETIRACETAM 500 MG TABLET PO SCH ×2 (09:21→22:30)
[2017-09-14] MEDS: SERTRALINE HCL 50 MG TABLET PO SCH (09:22)
[2017-09-14] MEDS: ASPIRIN 81 MG TABLET, ENT COATED PO SCH (09:22)
[2017-09-14] MEDS: NYSTATIN 500000 UNIT/5 ML UDCUP PO SCH ×4 (09:23→22:08)
[2017-09-14] MEDS: LACOSAMIDE 50 MG TABLET PO SCH ×2 (09:23→22:30)
[2017-09-14] MEDS ORDERED: NORMAL SALINE 500 ML IV PRN (11:58)
[2017-09-14] MEDS ORDERED: INSULIN REG, HUMAN 100 UNIT/ML 3 ML VIAL (PYX) IV ONE (13:00)
--- NOTE | 2017-09-14 13:10 | PDOC CONSULTATION ---
Consultation Consult Date: 09/14/17 Attending physician:: YASMEEN ALLEN Consult reason:: History of lymphoma History of Present Illness Admission Date/PCP: 09/08/17 18:24 IVONE ZARATE, Patient complains of: UTI, burning on urination, lymphoma History of Present Illness: 62-year-old female who is a very poor historian, who has history of lymphoma. She comes in with UTI and is being actively treated because of a complicated UTI. She tells me she had a history of lymphoma diagnosed 3-4 years ago and was on chemo for "that whole time". She was treated in [place], does not remember the name of her physician. She does have a port, that is accessed currently. She denies any fevers chills night sweats, but does note previous symptoms of UTI. Past Medical History Cardiac Medical History: Reports: Congestive Heart Failure, Other - This history is per chart review patient is unable to answer these question Pulmonary Medical History: Reports: None EENT Medical History: Reports: None Neurological Medical History: Reports: Seizures Endocrine Medical History: Reports: Diabetes Mellitus Type 2 Renal/ Medical History: Reports: None Malignancy Medical History: Reports: Other - Multiple myeloma GI Medical History: Reports: None Musculoskeltal Medical History: Reports: None Skin Medical History: Reports: None Psychiatric Medical History: Reports: None Traumatic Medical History: Reports: None Hematology: Reports: Anemia Infectious Medical History: Reports: None Past Surgical History Past Surgical History: Reports: Other - Right chest wall port Social History Information Source: Patient Lives with: Family Smoking Status: Never Smoker Hx Recreational Drug Use: No - Advance Directive Resuscitation Status: Full Code Family History Family History: None Parental Family History Reviewed: Yes Children Family History Reviewed: Yes Sibling(s) Family History Reviewed.: Yes Medication/Allergy Home Medications: Aspirin [Aspirin EC] 81 mg PO DAILY 09/10/17 Atorvastatin Calcium [Lipitor 40 mg Tablet] 40 mg PO QHS 09/10/17 Carvedilol [Coreg 3.125 mg Tablet] 3.125 mg PO Q12 09/10/17 Clopidogrel Bisulfate [Plavix 75 mg Tablet] 75 mg PO DAILY 09/10/17 Gabapentin [Neurontin 300 mg Capsule] 300 mg PO QHS 09/10/17 Insulin Glargine,Hum.rec.anlog [Lantus Insulin 100 Unit/1 ml 10 ml] 12 units SQ QHS 09/10/17 Lacosamide [Vimpat 50 mg Tablet] 50 mg PO BID 09/10/17 Levetiracetam [Keppra] 1,000 mg PO BID 09/10/17 Sertraline HCl [Zoloft 50 mg Tablet] 50 mg PO DAILY 09/10/17 Allergies/Adverse Reactions: No Known Allergies Allergy (Verified 08/03/17 17:12) Review of Systems Constitutional: PRESENT: fatigue, weakness Cardiovascular: ABSENT: chest pain, dyspnea on exertion, edema, orthropnea, palpitations Gastrointestinal: ABSENT: abdominal pain, constipation, diarrhea, hematemesis, hematochezia, nausea, vomiting Integumentary: ABSENT: rash, wounds Neurological: ABSENT: abnormal gait, abnormal speech, confusion, dizziness, focal weakness, syncope Physical Exam Vital Signs: Temp Pulse Resp BP Pulse Ox 97.5 F 67 16 122/79 100 09/14/17 11:39 09/14/17 11:39 09/14/17 11:39 09/14/17 11:39 09/14/17 11:39 Intake & Output 09/13/17 09/14/17 09/15/17 06:59 06:59 06:59 Intake Total 2669 1216 Output Total 800 800 Balance 1869 416 Weight 67.9 kg General appearance: PRESENT: no acute distress, well-developed, well-nourished Head exam: PRESENT: atraumatic, normocephalic Eye exam: PRESENT: conjunctiva pink, EOMI, PERRLA. ABSENT: scleral icterus Ear exam: PRESENT: normal external ear exam Mouth exam: PRESENT: moist, tongue midline Neck exam: ABSENT: carotid bruit, JVD, lymphadenopathy, thyromegaly Respiratory exam: PRESENT: clear to auscultation ashley. ABSENT: rales, rhonchi, wheezes Cardiovascular exam: PRESENT: RRR. ABSENT: diastolic murmur, rubs, systolic murmur Pulses: PRESENT: normal dorsalis pedis pul Vascular exam: PRESENT: normal capillary refill GI/Abdominal exam: PRESENT: normal bowel sounds, soft. ABSENT: distended, guarding, mass, organolmegaly, rebound, tenderness Rectal exam: PRESENT: deferred Extremities exam: PRESENT: full ROM. ABSENT: calf tenderness, clubbing, pedal edema Neurological exam: PRESENT: alert, awake, oriented to person, oriented to place , oriented to time, oriented to situation, CN II-XII grossly intact. ABSENT: motor sensory deficit Psychiatric exam: PRESENT: appropriate affect, normal mood. ABSENT: homicidal ideation, suicidal ideation Skin exam: PRESENT: dry, intact, warm. ABSENT: cyanosis, rash Results Laboratory Results: 09/14/17 04:50 09/14/17 04:50 09/14/17 09/14/17 04:50 04:50 WBC 3.9 L RBC 3.10 L Hgb 9.6 L Hct 28.6 L MCV 92 MCH 30.9 MCHC 33.5 RDW 15.3 H Plt Count 88 L Seg Neutrophils % 87.4 H Lymphocytes % 10.8 L Monocytes % 1.7 L Eosinophils % 0.0 Basophils % 0.1 Absolute Neutrophils 3.4 Absolute Lymphocytes 0.4 L Absolute Monocytes 0.1 Absolute Eosinophils 0.0 Absolute Basophils 0.0 Sodium 136.0 L Potassium 4.7 Chloride 103 Carbon Dioxide 24 Anion Gap 9 BUN 21 H Creatinine 0.95 Est GFR ( Amer) > 60 Est GFR (Non-Af Amer) > 60 Glucose 375 H Calcium 9.0 Magnesium 1.7 09/08/17 20:08 Troponin I 0.055 Impressions: Chest X-Ray 09/08/17 16:56 IMPRESSION: NO ACUTE RADIOGRAPHIC FINDING IN THE CHEST. Abdomen/Pelvis CT 09/09/17 00:00 IMPRESSION: 1. Limited study as above. 2. Partially calcified liver masses, suspicious. Does the patient have known primary malignancy elsewhere? This could represent liver metastatic disease. 3. Stool retention. Fibroid uterus. Other findings as above. No overt bowel obstruction or urinary obstruction. Head CT 09/11/17 00:00 IMPRESSION: No significant interval changes compared to the previous study. No acute changes. Other findings as noted above EVIDENCE OF ACUTE STROKE: NO. 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 We will need to also flush her port every 2 months.
--- NOTE | 2017-09-14 13:33 | PROGRESS NOTE E ---
Progress Note NAME: BISHNU WAYNE : 1955 AGE: 62Y DATE: 09/14/2017 ROOM: 332 SUBJECTIVE: The patient is currently lying in bed. She states that she feels somewhat better today. The patient is more awake and alert. She denies any nausea, vomiting, or diarrhea. No shortness of breath, dizziness, or chest pain. No fever or chills. The patient has been afebrile. Her blood pressures have overall improved and the patient does not voice any other concerns at this time. REVIEW OF SYSTEMS: Rest of the review of systems negative. MEDICATIONS: Have been reviewed. OBJECTIVE: GENERAL: The patient is a 62-year-old -Mac[place] female who is awake and alert. She is oriented to person, place, time, and situation. She does not appear to be in any acute distress. VITAL SIGNS: Temperature 97.5, pulse 67, respirations 16, blood pressure 122/79, oxygen saturation is 100% on room air. SKIN: Warm and dry. No rash. She is not diaphoretic. HEENT: Pupils are reactive. The patient had very poor dentition. No evidence of JVP. CARDIOVASCULAR: Heart is regular. No rub. CHEST: Clear, symmetrical, unlabored. ABDOMEN: Soft, nontender, nondistended. BACK: No CVA tenderness or sacral edema. EXTREMITIES: No clubbing, cyanosis, or edema. PSYCHIATRIC: Unusual affect. DIAGNOSTICS: Lab values are as follow: Hematology obtained on 09/14/2017: WBCs are 3.9, hemoglobin is 9.6, hematocrit is 28.9, platelet count is 88,000. Chemistry obtained on 09/14/2017: Sodium is 136, potassium 4.7, chloride is 103, carbon dioxide 24, BUN 21, creatinine is 0.95, glucose 375, calcium is 9.0, magnesium is 1.7. IMPRESSION AND PLAN: 1. ACUTE RENAL FAILURE RESOLVED. 2. MULTIPLE MYELOMA. This is stable. Continue follow up on an outpatient basis. 3. LUPUS. Again, can be followed up on an outpatient basis. 4. URINARY TRACT INFECTION WITH SEPSIS. The patient has completed antibiotic coverage of 5 days. No further symptoms. 5. HYPOTHERMIA. Initially thought to be secondary to sepsis, however, given that it is ongoing coupled with thrombocytopenia and the patient's underlying myelomas, concern for possible adrenal issues. The patient appears to have responded very well to hydrocortisone. Therefore, will continue this. The patient states that she has had episodes of this in the past. Random cortisol level of course is not really suggestive, however, needed to proceed with treatment yesterday. Therefore, all results from now on would be skewed. Will place the patient back on a bear hugger once her body temp is less than 96.5. 6. DIABETES MELLITUS TYPE 2. Patient's glucose is significantly elevated. This most likely is due to steroidal coverage. Will increase the patient's basil insulin. We will cover a high now with one time IV dose and repeat in an hour. 7. CONSTIPATION RESOLVED WITH ENEMA. 8. CARDIOMYOPATHY. Echo was noted to be of poor quality. I am concerned for prior toxicity from treatment or amyloidosis. Will consult cardiology. DISPOSITION: The patient is a FULL CODE. Pending patient's symptomatology and diagnostic findings, will reevaluate in the a.m. Time spent on this followup including assessment, plan, physical examination, patient education, review of records, and specialty collaboration is 35 minutes. DICTATING PHYSICIAN: IVONE AMEZQUITA NP [id number] PHY#: [id number] ID: [id number] JOB#: [id number] ACCT: [id number] cc: > MTDD
[2017-09-14] MEDS: INSULIN LISPRO 100 UNIT/ML 3 ML VIAL SUBCUT SCH ×2 (14:14→22:31)
[2017-09-14] MEDS: GABAPENTIN 300 MG CAPSULE PO SCH (22:30)
[2017-09-14] MEDS: ATORVASTATIN CALCIUM 40 MG TABLET PO SCH (22:30)
[2017-09-14] MEDS: INSULIN GLARGINE,HUM.REC.ANLOG 1,000 UNIT/10 ML UNIT SUBCUT SCH (22:30)
[2017-09-15] MEDS: HYDROCORTISONE SOD SUCCINATE INJ/PF 100 MG/2 ML SDV IV SCH ×3 (05:43→22:13)
[2017-09-15 06:22] LABS: HEMOGLOBIN 8.8 g/dL (12.0-15.5); MEAN CORPUSCULAR HEMOGLOBIN 31.1 pg (27.0-33.4); MEAN CORPUSCULAR VOLUME 92 fl (80-97); PLATELET COUNT 100 10^3/uL (150-450); RED BLOOD COUNT 2.84 10^6/uL (3.72-5.28); RED CELL DISTRIBUTION WIDTH 15.1 % (11.5-14.0); WHITE BLOOD COUNT 5.2 10^3/uL (4.0-10.5)
[2017-09-15 06:46] LABS: ANION GAP 7 (5-19); BLOOD UREA NITROGEN 24 mg/dL (7-20); CALCIUM 9.4 mg/dL (8.4-10.2); CARBON DIOXIDE 25 mmol/L (22-30); CHLORIDE 104 mmol/L (98-107); GLUCOSE 215 mg/dL (75-110); POTASSIUM 4.1 mmol/L (3.6-5.0); SODIUM 136.4 mmol/L (137-145)
[2017-09-15] MEDS: INSULIN LISPRO 100 UNIT/ML 3 ML VIAL SUBCUT SCH ×4 (08:58→22:13)
[2017-09-15] MEDS: LACOSAMIDE 50 MG TABLET PO SCH ×2 (10:53→22:14)
[2017-09-15] MEDS: CARVEDILOL 3.125 MG TABLET PO SCH ×2 (10:53→22:14)
[2017-09-15] MEDS: SERTRALINE HCL 50 MG TABLET PO SCH (10:53)
[2017-09-15] MEDS: LEVETIRACETAM 500 MG TABLET PO SCH ×2 (10:54→22:13)
[2017-09-15] MEDS: NYSTATIN 500000 UNIT/5 ML UDCUP PO SCH ×4 (10:55→22:16)
[2017-09-15] MEDS: ASPIRIN 81 MG TABLET, ENT COATED PO SCH (10:55)
--- NOTE | 2017-09-15 13:51 | PDOC CONSULTATION ---
Consultation Consult Date: 09/15/17 Attending physician:: IVONE AMEZQUITA Consult reason:: Cardiomyopathy History of Present Illness Admission Date/PCP: 09/08/17 18:24 IVONE ZARATE, Patient complains of: Shortness of breath, generalized weakness History of Present Illness: 62-year-old female who is a very poor historian, who has history of lymphoma. She comes in with UTI and is being actively treated because of a complicated UTI. She tells me she had a history of lymphoma diagnosed 3-4 years ago and was on chemo for "that whole time". She was treated in [place], does not remember the name of her physician. She does have a port, that is accessed currently. She denies any fevers chills night sweats, but does note previous symptoms of UTI. Patient tells me that she knows about her heart being weak. She had a pacemaker placed in [place]. Chest x-ray shows atrial pacemaker not to defibrillator. I did review patient's echocardiogram shows depressed LVEF. It is estimated at around 35%. There is diffuse hypokinesia without any definite wall motion abnormalities. No significant valvular regurgitations are noted. Past Medical History Cardiac Medical History: Reports: Congestive Heart Failure, Other - This history is per chart review patient is unable to answer these question Pulmonary Medical History: Reports: None EENT Medical History: Reports: None Neurological Medical History: Reports: Seizures Endocrine Medical History: Reports: Diabetes Mellitus Type 2 Renal/ Medical History: Reports: None Malignancy Medical History: Reports: Other - Multiple myeloma GI Medical History: Reports: None Musculoskeltal Medical History: Reports: None Skin Medical History: Reports: None Psychiatric Medical History: Reports: None Traumatic Medical History: Reports: None Hematology: Reports: Anemia Infectious Medical History: Reports: None Past Surgical History Past Surgical History: Reports: Pacemaker - Dual-chamber, Other - Right chest wall port Social History Information Source: Patient Lives with: Family Smoking Status: Never Smoker Hx Recreational Drug Use: No - Advance Directive Resuscitation Status: Full Code Surrogate healthcare decision maker:: Patient children at the surrogate decision-maker Family History Family History: Hypertension Parental Family History Reviewed: Yes Children Family History Reviewed: Yes Sibling(s) Family History Reviewed.: Yes Medication/Allergy Home Medications: Aspirin [Aspirin EC] 81 mg PO DAILY 09/10/17 Atorvastatin Calcium [Lipitor 40 mg Tablet] 40 mg PO QHS 09/10/17 Carvedilol [Coreg 3.125 mg Tablet] 3.125 mg PO Q12 09/10/17 Clopidogrel Bisulfate [Plavix 75 mg Tablet] 75 mg PO DAILY 09/10/17 Gabapentin [Neurontin 300 mg Capsule] 300 mg PO QHS 09/10/17 Insulin Glargine,Hum.rec.anlog [Lantus Insulin 100 Unit/1 ml 10 ml] 12 units SQ QHS 09/10/17 Lacosamide [Vimpat 50 mg Tablet] 50 mg PO BID 09/10/17 Levetiracetam [Keppra] 1,000 mg PO BID 09/10/17 Sertraline HCl [Zoloft 50 mg Tablet] 50 mg PO DAILY 09/10/17 Allergies/Adverse Reactions: No Known Allergies Allergy (Verified 08/03/17 17:12) Review of Systems Review of Systems: Please see history of present illness and past medical history as wall. Constitutional: fever or chills reported. Patient reports generalized fatigue and tiredness. She has felt intermittently hot and cold. Head : No recent chronic headaches, recent head injury. Eyes: No recent eye pain, diplopia, redness, discharge, acute visual changes. Ears: No recent chronic ear pain, acute hearing loss, ear discharge. Oral cavity: No recent ulcerations, bleeding, oral cavity discomfort. Neck: No recent acute neck pain reported. Hematologic: No recent easy bruising or bleeding or hematologic malignancy reported. Lymphatic: No recent lymphatic malignancy, chronic lymphadenopathy reported yet Cardiovascular system review: See history of present illness. Respiratory system review: No recent chronic cough, hemoptysis, blood clots in the lungs reported. Shortness of breath on exertion. Patient denied any sustained palpitations, syncope, near syncope. Gastrointestinal system review: Negative for any recent acute or chronic abdominal pain, hematemesis, melena, recent change in bowel habits. Genitourinary system review: No recent acute or chronic hematuria, flank pain, UTI etc. reported. Skin system review: Negative for any recent abnormal bruising, no rash, no pruritus reported. Neurologic: No prior history of strokes, mini strokes, seizure disorder. Psychologic: No history of major psychosis or major depression reported. Musculoskeletal: Minor aches and pains reported. No acute joint swelling reported. Endocrine: No recent polyuria, polydipsia, recent heat or cold intolerance. Physical Exam Vital Signs: Temp Pulse Resp BP Pulse Ox 94.6 F L 66 16 137/79 H 100 09/15/17 12:00 09/15/17 11:30 09/15/17 11:30 09/15/17 11:30 09/15/17 11:30 Intake & Output 09/14/17 09/15/17 09/16/17 06:59 06:59 06:59 Intake Total 1216 3159 Output Total 800 1100 Balance 416 2059 Weight 67.9 kg 60.2 kg Exam: GENERAL: well-nourished and in no acute distress. Alert and oriented x3 HEAD: Atraumatic, normocephalic. EYES: Pupils equal round and reactive to light, extraocular movements intact, sclera anicteric, conjunctiva are normal. ENT: TMs normal, nares patent, oropharynx clear without exudates. Moist mucous membranes. No oral ulcerations or bleeding gums noted NECK: supple without lymphadenopathy. Trachea is central. No cervical or axillary lymphadenopathy noted. Carotids are 2+, JVD WNL LUNGS: Respiration seems nonlabored, no significant accessory muscle action noted. Breath sounds clear to auscultation bilaterally and equal noted. No wheezes rales or rhonchi noted. No significant dullness noted on percussion. CHEST: Palpation of the chest wall shows no significant chest wall tenderness. No other significant abnormalities noted. Pacemaker noted left side chest. Port-A-Cath noted right sided chest. 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 ABDOMEN: Soft, no significant tenderness appreciated, normoactive bowel sounds. No guarding, no rebound. No rigidity noted . No masses appreciated. EXTREMITIES: Pedal pulses are 1-2+, no calf tenderness noted. No clubbing or cyanosis.1+ pedal edema noted NEUROLOGICAL: Focused neurological exam showed no significant neurologic deficit. Normal speech, no focal weakness appreciated. PSYCH: Normal mood, normal affect. Judgment and insight within normal limits. SKIN: No significant ecchymosis, rash, ulcerations or signs of pruritus noted. MUSCULOSKELETAL EXAM: No significant joint swelling noted. Results Laboratory Results: 09/15/17 05:40 09/15/17 05:40 09/15/17 09/15/17 05:40 05:40 WBC 5.2 RBC 2.84 L Hgb 8.8 L Hct 26.0 L MCV 92 MCH 31.1 MCHC 34.0 RDW 15.1 H Plt Count 100 L Sodium 136.4 L Potassium 4.1 Chloride 104 Carbon Dioxide 25 Anion Gap 7 BUN 24 H Creatinine 0.88 Est GFR ( Amer) > 60 Est GFR (Non-Af Amer) > 60 Glucose 215 H Calcium 9.4 Magnesium 1.8 09/08/17 20:08 Troponin I 0.055 EKG Comments: Twelve-lead EKG shows ventricular paced rhythm. Impressions: Chest X-Ray 09/08/17 16:56 IMPRESSION: NO ACUTE RADIOGRAPHIC FINDING IN THE CHEST. Abdomen/Pelvis CT 09/09/17 00:00 IMPRESSION: 1. Limited study as above. 2. Partially calcified liver masses, suspicious. Does the patient have known primary malignancy elsewhere? This could represent liver metastatic disease. 3. Stool retention. Fibroid uterus. Other findings as above. No overt bowel obstruction or urinary obstruction. Head CT 09/11/17 00:00 IMPRESSION: No significant interval changes compared to the previous study. No acute changes. Other findings as noted above EVIDENCE OF ACUTE STROKE: NO. Assessment & Plan - Diagnosis (1) Cardiomyopathy Qualifiers: Cardiomyopathy type: unspecified Qualified Code(s): I42.9 - Cardiomyopathy , unspecified Is this a current diagnosis for this admission?: Yes (2) Multiple myeloma Qualifiers: Multiple myeloma remission status: unspecified Qualified Code(s): C90.00 - Multiple myeloma not having achieved remission Is this a current diagnosis for this admission?: Yes (3) Type 2 diabetes mellitus Qualifiers: Diabetes mellitus complication status: with hyperosmolarity Diabetes mellitus complication detail: without coma Diabetes mellitus jail insulin use: with 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 Qualified Code(s): E11.00 - Type 2 diabetes mellitus with hyperosmolarity without nonketotic hyperglycemic-hyperosmolar coma ([facility]); Z79.4 - pillow agent (current) use of insulin; Z79.4 - pillow agent ( current) use of insulin; Z79.4 - MCFP (current) use of insulin; Z79.4 - pillow agent (current) use of insulin Is this a current diagnosis for this admission?: Yes (4) Urinary tract infection Qualifiers: Urinary tract infection type: acute cystitis Is this a current diagnosis for this admission?: Yes - Notes Notes: Cardiomyopathy: Patient noted to have significantly depressed LVEF, but best estimate being 35%. Patient mostly has diffuse hypokinesia. No significant valvular abnormalities noted. Patient has been started on the small dose of carvedilol. Will go ahead and place patient on entresto therapy. Follow electrolytes. Multiple myeloma and other Suspected hematologic malignancy: We will leave management to oncologist. Diabetes: Currently not under satisfactory control. Blood sugars are still elevated. Hospitalist managing the condition. Urinary tract infection: Continue with antibiotic therapy. Status post pacemaker placement: Will repeat EKG, on initial EKG pacemaker seems to be functioning normally. Further follow-up can be done as an outpatient. - Time Time Spent: 30 to 50 Minutes - CODE STATUS was discussed, patient remains full code. Surrogate decision-maker unchanged. Multiple medical problems were addressed. More than 50% of the time spent coordinating care, discussing management plans with involved caregivers. Management plans discussed with involved personnels. Medical decision making was of moderate to high complexity , patient's has multiple comorbidities. Medications reviewed and adjusted accordingly: Yes
--- NOTE | 2017-09-15 14:14 | PROGRESS NOTE E ---
Progress Note NAME: BISHNU WAYNE : 1955 AGE: 62Y DATE: 09/15/2017 ROOM: 332 SUBJECTIVE: The patient is lying in bed. She denies any nausea, vomiting, diarrhea. No shortness of breath, dizziness, chest pain. No fevers, chills. The patient has been afebrile. The patient's main concern is her diet. She does not want any more dietary restrictions and would like a regular diet. I asked the patient about coronary artery disease, and she denied any known history of this. BRIEF HISTORY: The patient is a 62-year-old -Mexican female with a past medical history of multiple myeloma and self-reported lupus. The patient presented to the Emergency Department with a chief complaint of just being thirsty. The patient has a complicated past medical history which is significant for multiple myeloma which has been treated in [place] as well as possible lupus. The patient denies any known history of heart disease. However, the patient was felt to be septic from a urinary tract infection and was also found to have HHS and was referred to the hospitalist for admission and management, and the patient was in ICU. The patient was treated with antibiotic coverage. The patient's symptoms and mental status improved. However, the patient's core body temperature still has remained quite cool, and the patient is still requiring a warming blanket. The patient did have a random cortisol which was found to be 7. The patient, however, had been treated with steroids. Therefore, further testing would be skewed. Suspect possibly an underlying adrenal insufficiency. Regardless, the patient had an echocardiogram, and findings were consistent with significant cardiomyopathy. Uncertain what the patient has had in the way of chemotherapy, and of course amyloidosis is of concern. I have discussed the case with Cardiology, and the patient will be seen by Cardiology. The patient has required multiple supplemental changes to her insulin throughout her course of stay as her blood sugars are labile. The patient attributes some of this to not eating because she does not like the diet and has had some lows. However, the patient overall has significant highs which also have been complicated with the addition of steroids. Unfortunately, the patient is not able to provide much in the way of history. REVIEW OF SYSTEMS: Rest of review of systems is negative. MEDICATIONS: Medications have been reviewed. OBJECTIVE: GENERAL: The patient is a 62-year-old -Mexican female who is awake, alert. She is oriented to person, place, time. Do not feel she has complete insight to situation. She does not appear to be distressed. VITAL SIGNS FOLLOWS: Temperature is 97.3, but this is on a Soraida Hugger. Pulse rate 66. Respirations 16. Blood pressure is 137/79. Oxygen saturation is 100% on room air. SKIN: Warm and dry. No rash. She is not diaphoretic. HEENT: The patient has very poor dentition. Mucous membranes appear moist. NECK: No evidence of JVP. CARDIOVASCULAR SYSTEM: Heart is regular. No rub. CHEST: Clear, symmetrical, unlabored. ABDOMEN: Soft. Nontender. EXTREMITIES: No edema. PSYCHIATRIC: The patient has an odd affect with limited insight. DIAGNOSTICS: Lab values are as follows. Hematology obtained on 09/15/2017: WBCs are 5.2. Hemoglobin is 8.8. Hematocrit is 26.0. Platelet count is 100,000. Chemistry obtained on 09/15/2017: Sodium is 136, potassium 4.1, chloride is 104, carbon dioxide 25. BUN 24, creatinine is 0.88, glucose 215. Calcium is 9.4. Magnesium is 1.8. IMPRESSION AND PLAN: 1. URINARY TRACT INFECTION WITH SEPSIS. The patient completed 5 days of antibiotic coverage, has no symptoms of UTI, no hematuria, pyuria or dysuria. 2. SEPSIS SECONDARY TO NUMBER ONE. I do believe the patient's picture is overall skewed if there is an underlying pathology here besides infectious sepsis. 3. MULTIPLE MYELOMA. This was reported to be stable. However, will attempt to obtain records from [place]. This has been a taxing effort. Given the patient's ongoing illness, did ask Dr. Fernandez for consultation. 4. ACUTE RENAL FAILURE. This resolved with hydration. 5. DIABETES MELLITUS TYPE 2. The patient's glucoses are labile. Some of this is due to steroidal coverage. Additionally, some of it is due to the patient's inconsistent eating. Will suffice the patient and give a regular diet, increase basal insulin, and follow. 6. CONSTIPATION, RESOLVED WITH ENEMA. 7. CARDIOMYOPATHY. Uncertain of the exact underlying etiology of this. The patient reportedly has no CAD, but given this limited EF, will consult Cardiology. Of course concern is previous chemo toxicity as well as possible amyloidosis. Would appreciate cardiology input. 8. PERSISTENT HYPOTHERMIA. Initially thought to be secondary to sepsis. However, that being coupled with thrombocytopenia and underlying history of myeloma, uncertain if the patient has adrenal issues or if this could be due to the underlying process. The patient appeared to have responded fairly well to steroids. Did decrease the dose yesterday, and the patient had to be put back on a warming blanket. The patient's random cortisol of course was not really suggestive. AM testing deferred had already been on steroids. Therefore, testing would be skewed. The patient states that this has happened to her in the past. Hopefully, much more will become clear with additional medical records. DISPOSITION: The patient is a FULL CODE. Pending patient's symptomatology and diagnostic findings, will reevaluate in the a.m. TIME SPENT: Time spent on this followup including assessment, plan, physical examination, patient education, review of records, and specialty collaboration is 35 minutes. DICTATING PHYSICIAN: IVONE AMEZQUITA NP [id number] PHY#: [id number] ID: [id number] JOB#: [id number] ACCT: [id number] cc: > MTDD
[2017-09-15] MEDS: SACUBITRIL/VALSARTAN 24 MG/26 MG TABLET PO SCH (17:06)
[2017-09-15] MEDS ORDERED: INSULIN GLARGINE,HUM.REC.ANLOG 300 UNIT/3 ML INSULN.PEN SUBCUT SCH (18:00)
[2017-09-15] MEDS: INSULIN GLARGINE,HUM.REC.ANLOG 1,000 UNIT/10 ML UNIT SUBCUT SCH (22:13)
[2017-09-15] MEDS: ATORVASTATIN CALCIUM 40 MG TABLET PO SCH (22:13)
[2017-09-15] MEDS: GABAPENTIN 300 MG CAPSULE PO SCH (22:14)
--- NOTE | 2017-09-15 23:56 | EKG REPORT ---
SEVERITY:- ABNORMAL ECG - ATRIAL-SENSED VENTRICULAR-PACED RHYTHM : Confirmed by: Reena Quintana 15-Sep-2017 23:55:43
[2017-09-16] MEDS: HYDROCORTISONE SOD SUCCINATE INJ/PF 100 MG/2 ML SDV IV SCH ×2 (05:42→21:46)
--- NOTE | 2017-09-16 07:52 | PDOC PROGRESS REPORT ---
Subjective Progress Note for:: 09/16/17 Subjective:: No acute events overnight Reason For Visit: UTI POSSIBLE SEPSIS Physical Exam Vital Signs: Temp Pulse Resp BP Pulse Ox 97.5 F 67 18 117/77 100 09/16/17 05:42 09/16/17 05:42 09/16/17 05:42 09/16/17 05:42 09/16/17 05:42 Intake & Output 09/15/17 09/16/17 09/17/17 06:59 06:59 06:59 Intake Total 3159 1809 Output Total 1100 0 Balance 2059 1809 Weight 60.2 kg 64.2 kg General appearance: PRESENT: no acute distress, well-developed, well-nourished Head exam: PRESENT: atraumatic, normocephalic Eye exam: PRESENT: conjunctiva pink, EOMI, PERRLA. ABSENT: scleral icterus Ear exam: PRESENT: normal external ear exam Mouth exam: PRESENT: moist, tongue midline Neck exam: ABSENT: carotid bruit, JVD, lymphadenopathy, thyromegaly Respiratory exam: PRESENT: clear to auscultation ashley. ABSENT: rales, rhonchi, wheezes Cardiovascular exam: PRESENT: RRR. ABSENT: diastolic murmur, rubs, systolic murmur Pulses: PRESENT: normal dorsalis pedis pul Vascular exam: PRESENT: normal capillary refill GI/Abdominal exam: PRESENT: normal bowel sounds, soft. ABSENT: distended, guarding, mass, organolmegaly, rebound, tenderness Rectal exam: PRESENT: deferred Extremities exam: PRESENT: full ROM. ABSENT: calf tenderness, clubbing, pedal edema Neurological exam: PRESENT: alert, awake, oriented to person, oriented to place , oriented to time, oriented to situation, CN II-XII grossly intact. ABSENT: motor sensory deficit Psychiatric exam: PRESENT: appropriate affect, normal mood. ABSENT: homicidal ideation, suicidal ideation Skin exam: PRESENT: dry, intact, warm. ABSENT: cyanosis, rash Results Laboratory Results: 09/15/17 05:40 09/15/17 05:40 09/08/17 20:08 Troponin I 0.055 Impressions: Chest X-Ray 09/08/17 16:56 IMPRESSION: NO ACUTE RADIOGRAPHIC FINDING IN THE CHEST. Abdomen/Pelvis CT 09/09/17 00:00 IMPRESSION: 1. Limited study as above. 2. Partially calcified liver masses, suspicious. Does the patient have known primary malignancy elsewhere? This could represent liver metastatic disease. 3. Stool retention. Fibroid uterus. Other findings as above. No overt bowel obstruction or urinary obstruction. Head CT 09/11/17 00:00 IMPRESSION: No significant interval changes compared to the previous study. No acute changes. Other findings as noted above EVIDENCE OF ACUTE STROKE: NO. Assessment & Plan - Diagnosis (1) Other malignant lymphomas of intra-abdominal lymph nodes Is this a current diagnosis for this admission?: Yes Plan: Awaiting records, have put pt in for f/u in our office. No active onc issues now so will plan to see as outpt to continue port flushes. Hopefully will have records by then - Time Time Spent with patient: 15-24 minutes
[2017-09-16] MEDS: INSULIN LISPRO 100 UNIT/ML 3 ML VIAL SUBCUT SCH ×2 (09:06→13:35)
[2017-09-16] MEDS: LACOSAMIDE 50 MG TABLET PO SCH ×2 (09:07→21:46)
[2017-09-16] MEDS: ASPIRIN 81 MG TABLET, ENT COATED PO SCH (09:07)
[2017-09-16] MEDS: LEVETIRACETAM 500 MG TABLET PO SCH ×2 (09:07→21:46)
[2017-09-16] MEDS: CARVEDILOL 3.125 MG TABLET PO SCH ×2 (09:07→21:46)
[2017-09-16] MEDS: SERTRALINE HCL 50 MG TABLET PO SCH (09:08)
[2017-09-16] MEDS: NYSTATIN 500000 UNIT/5 ML UDCUP PO SCH ×2 (09:09→13:43)
[2017-09-16] MEDS: SACUBITRIL/VALSARTAN 24 MG/26 MG TABLET PO SCH ×2 (09:09→17:53)
--- NOTE | 2017-09-16 13:10 | PDOC PROGRESS REPORT ---
Subjective Progress Note for:: 09/16/17 Subjective:: The patient is a 62-year-old male admitted with sepsis secondary to urinary tract infection. She was initially admitted to the intensive care unit with hyperosmolar nonketotic coma. Her diabetes remains poorly controlled with persistent hyperglycemia. The patient has a diagnosis of underlying multiple myeloma or lymphoma. I see notes in the chart reflecting both diagnoses. She has persistent hypothermia. Cardiology has been consulted for evaluation of cardiomyopathy. The etiology and time course are unknown. Reason For Visit: UTI POSSIBLE SEPSIS Physical Exam Vital Signs: Temp Pulse Resp BP Pulse Ox 97.3 F 61 18 124/85 99 09/16/17 12:15 09/16/17 12:15 09/16/17 12:15 09/16/17 12:15 09/16/17 12:15 Intake & Output 09/15/17 09/16/17 09/17/17 06:59 06:59 06:59 Intake Total 3159 1809 118 Output Total 1100 0 Balance 2059 1809 118 Weight 60.2 kg 64.2 kg Additional comments: The patient appears to be her stated age, however, she appears to be in poor general health. Her dentition is poor. 1 of her front teeth appears to be loose. This is a gold tooth. The patient's lungs are noted to be clear to auscultation bilaterally. She has a regular rate and rhythm. I do not appreciate any murmurs, rubs or gallops. The abdomen is soft and flat. Bowel sounds are present in the lower quadrants. She does not have guarding or rebound noted and there are no hernias or masses present. Her lower extremities demonstrate trace edema. The skin is otherwise clean, warm, dry and intact. The site around her port appears to be without any erythema. She also has an EJ in place on the left. The site also looks clean dry and intact. Results Laboratory Results: 09/15/17 05:40 09/15/17 05:40 09/08/17 20:08 Troponin I 0.055 Impressions: Chest X-Ray 09/08/17 16:56 IMPRESSION: NO ACUTE RADIOGRAPHIC FINDING IN THE CHEST. Abdomen/Pelvis CT 09/09/17 00:00 IMPRESSION: 1. Limited study as above. 2. Partially calcified liver masses, suspicious. Does the patient have known primary malignancy elsewhere? This could represent liver metastatic disease. 3. Stool retention. Fibroid uterus. Other findings as above. No overt bowel obstruction or urinary obstruction. Head CT 09/11/17 00:00 IMPRESSION: No significant interval changes compared to the previous study. No acute changes. Other findings as noted above EVIDENCE OF ACUTE STROKE: NO. Assessment & Plan - Diagnosis (1) Acute renal failure Is this a current diagnosis for this admission?: Yes (2) Acute metabolic encephalopathy Is this a current diagnosis for this admission?: Yes (3) Cardiomyopathy Qualifiers: Cardiomyopathy type: unspecified Qualified Code(s): I42.9 - Cardiomyopathy , unspecified Is this a current diagnosis for this admission?: Yes (4) Constipation Is this a current diagnosis for this admission?: Yes (5) Hyperosmolar non-ketotic state in patient with type 2 diabetes mellitus Is this a current diagnosis for this admission?: Yes (6) Hypothermia Qualifiers: Encounter type: initial encounter Qualified Code(s): T68.XXXA - Hypothermia , initial encounter Is this a current diagnosis for this admission?: Yes (7) Multiple myeloma Qualifiers: Multiple myeloma remission status: unspecified Qualified Code(s): C90.00 - Multiple myeloma not having achieved remission Is this a current diagnosis for this admission?: Yes (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 Is this a current diagnosis for this admission?: Yes (9) Sepsis Is this a current diagnosis for this admission?: Yes (10) Urinary tract infection Qualifiers: Urinary tract infection type: acute cystitis Is this a current diagnosis for this admission?: Yes (11) Thrombocytopenia Is this a current diagnosis for this admission?: Yes - Time Time Spent with patient: 25-34 minutes - Inpatient Certification Medical Necessity: Significant Comorbidiites Make Outpatient Treatment Too Risky , Need Close Monitoring Due to Risk of Patient Decompensation, Risk of Complication if Not Cared For in Hospital, Risk of Diagnosis Which Will Require Inpatient Eval/Care/Monitoring - Plan Summary Plan Summary: 1. The patient's sepsis appears to be clinically improving. 2. The patient's urine culture grew Chasity. She remains on nystatin. 3. The patient has an underlying history of multiple myeloma and lymphoma. Dr. Willem Belcher of oncology is following. He is trying to get the patient's records from [place]. 4. The patient's acute renal failure resolved after rehydration. 5. In regards to the patient's hyperglycemia, I am going to significantly cut back on her dose of hydrocortisone. This should help her hyperglycemia. Apparently, she was refusing to eat and the previous provider liberalized her diet. We will see how she does after cutting back on the steroids and we may have to adjust her insulin regimen further. 6. Constipation, patient denied being constipated today. 7. Cardiomyopathy: Dr. Quintana is evaluating and following. 8. Hypothermia, currently core temperature is 97.3. 9. Acute metabolic encephalopathy appears to be resolving. 10. Thrombocytopenia: Platelet count is also improving and is now off to 100.
[2017-09-16] MEDS ORDERED: GLUCAGON,HUMAN RECOMB 1 MG INJ IM PRN ×3 (17:39→17:42)
[2017-09-16] MEDS ORDERED: DEXTROSE 50%-WATER 25 GM/50 ML DISP.SYRIN IV PRN ×6 (17:39→17:42)
[2017-09-16] MEDS ORDERED: DEXTROSE 40% GEL 15 GM TUBE PO PRN ×6 (17:39→17:42)
[2017-09-16] MEDS: INSULIN LISPRO 100 UNIT/ML 3 ML VIAL SUBCUT PRN ×2 (17:53→22:26)
--- NOTE | 2017-09-16 18:53 | PDOC PROGRESS REPORT ---
Subjective Progress Note for:: 09/16/17 Subjective:: Patient seems to be doing better with gradual improvement. Pt is denying any chest arm or neck discomfort. Patient denying any PND, orthopnea. Patient denied any sustained palpitations, dizziness, syncope, near syncope. Patient denying any fever chills. Patient denying any other significant discomfort. Patient is maintaining sinus with ventricular paced rhythm. Review of systems: Rest review of systems negative. Medications: Medications have been reviewed. Reason For Visit: UTI POSSIBLE SEPSIS Physical Exam Vital Signs: Temp Pulse Resp BP Pulse Ox 97.3 F 62 18 121/95 H 100 09/16/17 12:15 09/16/17 16:46 09/16/17 16:46 09/16/17 16:46 09/16/17 16:46 Intake & Output 09/15/17 09/16/17 09/17/17 06:59 06:59 06:59 Intake Total 3159 1809 350 Output Total 1100 0 Balance 2059 1809 350 Weight 60.2 kg 64.2 kg Exam: GENERAL: well-nourished and in no acute distress. Alert and oriented x3 HEAD: Atraumatic, normocephalic. EYES: Pupils equal round and reactive to light, extraocular movements intact, sclera anicteric, conjunctiva are normal. ENT: TMs normal, nares patent, oropharynx clear without exudates. Moist mucous membranes. No oral ulcerations or bleeding gums noted NECK: supple without lymphadenopathy. Trachea is central. No cervical or axillary lymphadenopathy noted. Carotids are 2+, JVD WNL LUNGS: Respiration seems nonlabored, no significant accessory muscle action noted. Few bibasilar fine crackles noted. No wheezes rales or rhonchi noted. No significant dullness noted on percussion. CHEST: Palpation of the chest wall shows no significant chest wall tenderness. No other significant abnormalities noted. Left-sided pacemaker noted. HEART: [place] [employer], No PSH, 1/6 BLAKE aortic area, 1/6 wilburn systolic murmur mitral area, no rubs, no gallops. ABDOMEN: Soft, no significant tenderness appreciated, normoactive bowel sounds. No guarding, no rebound. No rigidity noted . No masses appreciated. EXTREMITIES: Pedal pulses are 1-2+, no calf tenderness noted. No clubbing or cyanosis. 1+ pedal edema noted NEUROLOGICAL: Focused neurological exam showed no significant neurologic deficit. Normal speech, no focal weakness appreciated. PSYCH: Normal mood, normal affect. Judgment and insight within normal limits. SKIN: No significant ecchymosis, rash, ulcerations or signs of pruritus noted. MUSCULOSKELETAL EXAM: No significant joint swelling noted. Results Laboratory Results: 09/15/17 05:40 09/15/17 05:40 09/08/17 20:08 Troponin I 0.055 Impressions: Chest X-Ray 09/08/17 16:56 IMPRESSION: NO ACUTE RADIOGRAPHIC FINDING IN THE CHEST. Abdomen/Pelvis CT 09/09/17 00:00 IMPRESSION: 1. Limited study as above. 2. Partially calcified liver masses, suspicious. Does the patient have known primary malignancy elsewhere? This could represent liver metastatic disease. 3. Stool retention. Fibroid uterus. Other findings as above. No overt bowel obstruction or urinary obstruction. Head CT 09/11/17 00:00 IMPRESSION: No significant interval changes compared to the previous study. No acute changes. Other findings as noted above EVIDENCE OF ACUTE STROKE: NO. 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 Patient mostly has diffuse hypokinesia. No significant valvular abnormalities noted. Patient tolerating advancement of cardiomyopathy therapy with beta-rach and entresto. Follow electrolytes. Multiple myeloma and other Suspected hematologic malignancy: We will leave management to oncologist. Diabetes: Coming under satisfactory control. Blood sugars are improved. Hospitalist managing the condition. Urinary tract infection: Continue with antibiotic therapy. Status post pacemaker placement: Will repeat EKG, on initial EKG pacemaker seems to be functioning normally. Patient will benefit from OT PT referral as patient looks quite debilitated. - Time Time Spent with patient: Significant time spent to evaluate patient's cardiac history and discuss 2D echo results, management plans etc. Discussed with other involved medical personnel and specialists. Patient was informed that she would need follow-up appointment and a follow-up echocardiogram. Time with patient: Greater than 35 minutes - CODE STATUS was discussed, patient remains full code. Surrogate decision-maker unchanged. Multiple medical problems were addressed. More than 50% of the time spent coordinating care, discussing management plans with involved caregivers. Management plans discussed with involved personnels. Medical decision making was of moderate to high complexity, patient's has multiple comorbidities. Medications reviewed and adjusted accordingly: Yes
[2017-09-16] MEDS: ATORVASTATIN CALCIUM 40 MG TABLET PO SCH (21:46)
[2017-09-16] MEDS: GABAPENTIN 300 MG CAPSULE PO SCH (21:47)
[2017-09-16] MEDS: INSULIN GLARGINE,HUM.REC.ANLOG 300 UNIT/3 ML INSULN.PEN SUBCUT SCH (22:26)
--- NOTE | 2017-09-16 22:33 | Palliative Consultation Report ---
Consultation From:: TEJAL CORTEZ Consult Reason: Cardiomyopathy - HPI HPI: Palliative Care Consult Visit 09/16/17 4:15-4:35 PM Appreciate consult request with this 62 year old woman who has been hospitalized since 09/08 due to sepsis related to UTI. WHen she arrived to the hospital, she had very high blood sugar (800s) and was hypotensive. She was admitted to the ICU and has gradually improved. However, she remains very weak and unable to manage ADL's on her own. She said she lives at home with her son, but realizes she is too weak to go back there right now. She is agreeable to go to SNF for rehab and bed offer has been made at [facility]. Ms. Perez is alert and oriented. She answers questions clearly and is in no acute distress, but she is obviously weakened by this recent illness. She denies oain and says she is able to eat and sleep. She reports that she has problems keeping her blood sugars in good control at e sometimes. She has a long history of following with doctors for what she calls multiple myeloma but the records from her oncology visits are pending. She also tells me she has lupus. She said she is "used" to being sick. As we discussed her illnesses both past and present, I asked her about her wishes for care in light of resuscitation for heart or respiratory failure. She very strongly told me other people had talked with her about this and she clearly knows she wants all measures taken if she has any problems with her heart, even going on ventilator. Onset: Just prior to arrival Onset/Duration: Gradual Pain Level: Denies Past Medical History(Consults) - General Information Source: Patient, [facility] Records Home Medications: Aspirin [Aspirin EC] 81 mg PO DAILY 09/10/17 Atorvastatin Calcium [Lipitor 40 mg Tablet] 40 mg PO QHS 09/10/17 Carvedilol [Coreg 3.125 mg Tablet] 3.125 mg PO Q12 09/10/17 Clopidogrel Bisulfate [Plavix 75 mg Tablet] 75 mg PO DAILY 09/10/17 Gabapentin [Neurontin 300 mg Capsule] 300 mg PO QHS 09/10/17 Insulin Glargine,Hum.rec.anlog [Lantus Insulin 100 Unit/1 ml 10 ml] 12 units SQ QHS 09/10/17 Lacosamide [Vimpat 50 mg Tablet] 50 mg PO BID 09/10/17 Levetiracetam [Keppra] 1,000 mg PO BID 09/10/17 Sertraline HCl [Zoloft 50 mg Tablet] 50 mg PO DAILY 09/10/17 Allergies/Adverse Reactions: No Known Allergies Allergy (Verified 08/03/17 17:12) - Social History Lives with: Family Family History: Hypertension Parental Family History Reviewed: No Children Family History Reviewed: No Sibling(s) Family History Reviewed.: No Smoking Status: Never Smoker Hx Recreational Drug Use: No - Past Medical History Cardiac Medical History: Reports: Hx Congestive Heart Failure, Other - This history is per chart review patient is unable to answer these question Pulmonary Medical History: Reports: None EENT Medical History: Reports: None Neurological Medical History: Reports: Hx Seizures Endocrine Medical History: Reports: Hx Diabetes Mellitus Type 2 Renal/ Medical History: Reports: None. Denies: Hx Peritoneal Dialysis Malignancy Medical History: Reports: Other - Multiple myeloma GI Medical History: Reports: None Musculoskeltal Medical History: Reports None Skin Medical History: Reports None Psychiatric Medical History: Reports: None Traumatic Medical History: Reports: None Infectious Medical History: Reports: None Hematology: Reports: Anemia - Surgical History Past Surgical History: Reports: Hx Pacemaker - Dual-chamber, Other - Right chest wall port Review of systems Constitutional: Malaise, Weakness, Recent illness Respiratory: No symptoms reported Gastrointestinal: Poor appetite Musculoskeltal: No symptoms reported Neurological/Psychological: Anxiety, Weakness Ojective:Exam Vital Signs: Temp Pulse Resp BP Pulse Ox 94.4 F L 66 20 136/74 H 100 09/16/17 20:00 09/16/17 19:26 09/16/17 19:26 09/16/17 19:26 09/16/17 19:26 Intake & Output 09/15/17 09/16/17 09/17/17 06:59 06:59 06:59 Intake Total 3159 1809 350 Output Total 1100 0 Balance 9 1809 350 Weight 60.2 kg 64.2 kg - General General Appearance: Alert In distress: None Note:: Weak and yet alert and strong willed. No distress. Speech clear and oriented x 3. Relaxed with no evidence pain or respiratory distress,. - HEENT Head: Normocephalic Eyes: Normal Conjunctiva: Normal Pupils: PERRLA Mouth/Lips: Other - loose tooth in front left Mucous membrane: Normal - Respiratory Respiratory Status: No respiratory distress Breath sounds: Clear - Cardiovascular Rhythm: Regular Pulses: Normal: Radial - Extremities Upper extremity: Normal inspection Lower extremities: Normal inspection - Neurological Cognition: Normal Orientation: Alert, Oriented to person, Oriented to place, Oriented to time Speech: Normal Cranial nerves: Normal - Psychological Associated symptoms: Normal affect Objective-Diagnostic Laboratory: 09/15/17 05:40 09/15/17 05:40 09/08/17 20:08 Troponin I 0.055 Plan and Recommendation Plan and Recommendation: Patient states she is comfortable with pain and breathing. She is alert and states she feels very weak and tired still. She is agreeable to go to SNF for reconditioning. She wants to eventually go back home. SHe denies any symptoms that are not being Ms. Chris was very strong in her statement that she wants to remain full code in spite of her multiple comorbid conditions. Appreciate opportunity to meet this patient who has much recovery time to go, but has every intention of getting better. - Time Spent with Patient Time spent with patient: 15 to 30 Minutes Time: 10 min with patint, 20 min chart review, consultation nursing.
[2017-09-17 04:52] LABS: ABSOLUTE LYMPHOCYTES (AUTO) 1.2 10^3/uL (0.5-4.7); ABSOLUTE MONOCYTES (AUTO) 0.9 10^3/uL (0.1-1.4); ABSOLUTE NEUT (AUTO) 4.3 10^3/uL (1.7-8.2); BASOPHILS % (AUTO) 0.1 % (0-2); EOSINOPHILS % (AUTO) 0.2 % (0-6); HEMATOCRIT 29.5 % (36.0-47.0); LYMPHOCYTES % (AUTO) 18.1 % (13-45); MEAN CORPUSCULAR HEMOGLOBIN 30.9 pg (27.0-33.4); MEAN CORPUSCULAR VOLUME 91 fl (80-97); MONOCYTES % (AUTO) 13.9 % (3-13); PLATELET COUNT 188 10^3/uL (150-450); RED BLOOD COUNT 3.24 10^6/uL (3.72-5.28); RED CELL DISTRIBUTION WIDTH 15.3 % (11.5-14.0); SEGMENTED NEUTROPHILS % (AUTO) 67.7 % (42-78); TOTAL CELLS COUNTED % (AUTO) 100 %; WHITE BLOOD COUNT 6.4 10^3/uL (4.0-10.5)
[2017-09-17 05:14] LABS: ANION GAP 7 (5-19); BLOOD UREA NITROGEN 35 mg/dL (7-20); CALCIUM 9.5 mg/dL (8.4-10.2); CARBON DIOXIDE 23 mmol/L (22-30); CHLORIDE 105 mmol/L (98-107); GLUCOSE 234 mg/dL (75-110); POTASSIUM 3.6 mmol/L (3.6-5.0); SODIUM 135.1 mmol/L (137-145)
[2017-09-17] MEDS: HYDROCORTISONE SOD SUCCINATE INJ/PF 100 MG/2 ML SDV IV SCH ×2 (09:27→21:33)
[2017-09-17] MEDS: LEVETIRACETAM 500 MG TABLET PO SCH ×2 (09:28→21:34)
[2017-09-17] MEDS: ASPIRIN 81 MG TABLET, ENT COATED PO SCH (09:28)
[2017-09-17] MEDS: INSULIN LISPRO 100 UNIT/ML 3 ML VIAL SUBCUT SCH ×3 (09:29→18:54)
[2017-09-17] MEDS: LACOSAMIDE 50 MG TABLET PO SCH (09:29)
[2017-09-17] MEDS: SACUBITRIL/VALSARTAN 24 MG/26 MG TABLET PO SCH (09:29)
[2017-09-17] MEDS: SERTRALINE HCL 50 MG TABLET PO SCH (09:29)
[2017-09-17] MEDS: INSULIN LISPRO 100 UNIT/ML 3 ML VIAL SUBCUT PRN ×2 (09:43→13:45)
[2017-09-17] MEDS: CARVEDILOL 3.125 MG TABLET PO SCH ×2 (09:44→21:33)
--- NOTE | 2017-09-17 13:13 | PDOC PROGRESS REPORT ---
Subjective Progress Note for:: 09/17/17 Subjective:: The patient is a 62-year-old male admitted with sepsis secondary to urinary tract infection. She was initially admitted to the intensive care unit with hyperosmolar nonketotic coma. Her diabetes remains poorly controlled with persistent hyperglycemia. The patient has a diagnosis of underlying multiple myeloma or lymphoma. I see notes in the chart reflecting both diagnoses. She has persistent hypothermia. Cardiology has been consulted for evaluation of cardiomyopathy. The etiology and time course are unknown. Palliative care was consulted. Patient remains a full code. The plan will be discharged to long-term facility when the patient is medically stable. Reason For Visit: UTI POSSIBLE SEPSIS Physical Exam Vital Signs: Temp Pulse Resp BP Pulse Ox 98.5 F 92 14 83/47 L 99 09/17/17 12:15 09/17/17 12:15 09/17/17 12:15 09/17/17 12:15 09/17/17 12:15 Intake & Output 09/16/17 09/17/17 09/18/17 06:59 06:59 06:59 Intake Total 1809 937 Output Total 0 Balance 1809 937 Weight 64.2 kg 64.1 kg Additional comments: The patient is awake and interactive today. She denies any complaints. She is eating breakfast but is noted to have some difficulty. She does have Krom's and some liquid from coffee on her hospital gown. She does not appear to have any trouble swallowing. The patient's lungs are coarse bilaterally, otherwise her exam is unremarkable. Her cardiac exam demonstrates a regular rate and rhythm without murmurs, gallops or rubs. The abdomen is soft and flat. Bowel sounds are present in the lower quadrants. She does not have guarding or rebound noted and there are no hernias or masses present. The lower extremities are warm to touch. The patient has trace to 1+ edema. No acute skin lesions or rashes are noted. Results Laboratory Results: 09/17/17 04:39 09/17/17 04:39 09/17/17 09/17/17 04:39 04:39 WBC 6.4 RBC 3.24 L Hgb 10.0 L Hct 29.5 L MCV 91 MCH 30.9 MCHC 34.0 RDW 15.3 H Plt Count 188 Seg Neutrophils % 67.7 Lymphocytes % 18.1 Monocytes % 13.9 H Eosinophils % 0.2 Basophils % 0.1 Absolute Neutrophils 4.3 Absolute Lymphocytes 1.2 Absolute Monocytes 0.9 Absolute Eosinophils 0.0 Absolute Basophils 0.0 Sodium 135.1 L Potassium 3.6 Chloride 105 Carbon Dioxide 23 Anion Gap 7 BUN 35 H Creatinine 0.97 Est GFR ( Amer) > 60 Est GFR (Non-Af Amer) 59 L Glucose 234 H Calcium 9.5 Magnesium 1.7 09/08/17 20:08 Troponin I 0.055 Impressions: Chest X-Ray 09/08/17 16:56 IMPRESSION: NO ACUTE RADIOGRAPHIC FINDING IN THE CHEST. Abdomen/Pelvis CT 09/09/17 00:00 IMPRESSION: 1. Limited study as above. 2. Partially calcified liver masses, suspicious. Does the patient have known primary malignancy elsewhere? This could represent liver metastatic disease. 3. Stool retention. Fibroid uterus. Other findings as above. No overt bowel obstruction or urinary obstruction. Head CT 09/11/17 00:00 IMPRESSION: No significant interval changes compared to the previous study. No acute changes. Other findings as noted above EVIDENCE OF ACUTE STROKE: NO. Assessment & Plan - Diagnosis (1) Acute renal failure Is this a current diagnosis for this admission?: Yes (2) Acute metabolic encephalopathy Is this a current diagnosis for this admission?: Yes (3) Cardiomyopathy Qualifiers: Cardiomyopathy type: unspecified Qualified Code(s): I42.9 - Cardiomyopathy , unspecified Is this a current diagnosis for this admission?: Yes (4) Constipation Is this a current diagnosis for this admission?: Yes (5) Hyperosmolar non-ketotic state in patient with type 2 diabetes mellitus Is this a current diagnosis for this admission?: Yes (6) Hypothermia Qualifiers: Encounter type: initial encounter Qualified Code(s): T68.XXXA - Hypothermia , initial encounter Is this a current diagnosis for this admission?: Yes (7) Multiple myeloma Qualifiers: Multiple myeloma remission status: unspecified Qualified Code(s): C90.00 - Multiple myeloma not having achieved remission Is this a current diagnosis for this admission?: Yes (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 Is this a current diagnosis for this admission?: Yes (9) Sepsis Is this a current diagnosis for this admission?: Yes (10) Urinary tract infection Qualifiers: Urinary tract infection type: acute cystitis Is this a current diagnosis for this admission?: Yes (11) Thrombocytopenia Is this a current diagnosis for this admission?: Yes - Time Time Spent with patient: 25-34 minutes - Inpatient Certification Medical Necessity: Significant Comorbidiites Make Outpatient Treatment Too Risky , Need Close Monitoring Due to Risk of Patient Decompensation, Risk of Complication if Not Cared For in Hospital - Plan Summary Plan Summary: 1. The patient's sepsis appears to be clinically improving. 2. The patient's urine culture grew Chasity. She remains on nystatin. 3. The patient has an underlying history of multiple myeloma and lymphoma. Dr. Willem Belcher of oncology is following. He is trying to get the patient's records from [place]. 4. The patient's acute renal failure resolved after rehydration. 5. In regards to the patient's hyperglycemia, I decreased the patient's dose of hydrocortisone yesterday. Today, after discussion she does agree to a diabetic diet. Since that she will be going to a long-term facility where they will help to control her dietary choices I will start here and then increase her insulin regimen as needed. Yesterday, I did go up on her basal dose, her sliding scale dose and I added insulin coverage with meals. 6. Constipation, patient denied being constipated today. 7. Cardiomyopathy: Dr. Quintana is evaluating and following. His note that the patient is hypotensive today. Therefore, I have discontinued Entresto. 8. Hypothermia, currently core temperature is 98.5 9. Acute metabolic encephalopathy appears to be resolving. 10. Thrombocytopenia: Platelet count is also improving and is now off to 188.
--- NOTE | 2017-09-17 19:34 | PDOC PROGRESS REPORT ---
Subjective Progress Note for:: 09/17/17 Subjective:: Patient seems to be doing better with gradual improvement. Patient however looked somewhat sleepy and lethargic today. Pt is denying any chest arm or neck discomfort. Patient denying any PND, orthopnea. Patient denied any sustained palpitations, dizziness, syncope, near syncope. Patient denying any fever chills. Patient denying any other significant discomfort. Patient is maintaining sinus with ventricular paced rhythm. Review of systems: Rest review of systems negative. Medications: Medications have been reviewed. Reason For Visit: UTI POSSIBLE SEPSIS Physical Exam Vital Signs: Temp Pulse Resp BP Pulse Ox 98.8 F 86 20 103/66 100 09/17/17 15:11 09/17/17 15:11 09/17/17 15:11 09/17/17 15:11 09/17/17 15:11 Intake & Output 09/16/17 09/17/17 09/18/17 06:59 06:59 06:59 Intake Total 1809 937 771 Output Total 0 Balance 1809 937 771 Weight 64.2 kg 64.1 kg Exam: GENERAL: well-nourished and in no acute distress. Alert and oriented x3 HEAD: Atraumatic, normocephalic. EYES: Pupils equal round and reactive to light, extraocular movements intact, sclera anicteric, conjunctiva are normal. ENT: TMs normal, nares patent, oropharynx clear without exudates. Moist mucous membranes. No oral ulcerations or bleeding gums noted NECK: supple without lymphadenopathy. Trachea is central. No cervical or axillary lymphadenopathy noted. Carotids are 2+, JVD WNL LUNGS: Respiration seems nonlabored, no significant accessory muscle action noted. Breath sounds clear to auscultation bilaterally and equal noted. No wheezes rales or rhonchi noted. No significant dullness noted on percussion. CHEST: Palpation of the chest wall shows no significant chest wall tenderness. No other significant abnormalities noted. 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 ABDOMEN: Soft, no significant tenderness appreciated, normoactive bowel sounds. No guarding, no rebound. No rigidity noted . No masses appreciated. EXTREMITIES: Pedal pulses are 1-2+, no calf tenderness noted. No clubbing or cyanosis.trace to 1+ pedal edema noted NEUROLOGICAL: Focused neurological exam showed no significant neurologic deficit. Normal speech, no focal weakness appreciated. PSYCH: Normal mood, normal affect. Judgment and insight within normal limits. SKIN: No significant ecchymosis, rash, ulcerations or signs of pruritus noted. MUSCULOSKELETAL EXAM: No significant joint swelling noted. Results Laboratory Results: 09/17/17 04:39 09/17/17 04:39 09/17/17 09/17/17 04:39 04:39 WBC 6.4 RBC 3.24 L Hgb 10.0 L Hct 29.5 L MCV 91 MCH 30.9 MCHC 34.0 RDW 15.3 H Plt Count 188 Seg Neutrophils % 67.7 Lymphocytes % 18.1 Monocytes % 13.9 H Eosinophils % 0.2 Basophils % 0.1 Absolute Neutrophils 4.3 Absolute Lymphocytes 1.2 Absolute Monocytes 0.9 Absolute Eosinophils 0.0 Absolute Basophils 0.0 Sodium 135.1 L Potassium 3.6 Chloride 105 Carbon Dioxide 23 Anion Gap 7 BUN 35 H Creatinine 0.97 Est GFR ( Amer) > 60 Est GFR (Non-Af Amer) 59 L Glucose 234 H Calcium 9.5 Magnesium 1.7 09/08/17 20:08 Troponin I 0.055 EKG Comments: Sinus with ventricular paced rhythm. Impressions: Chest X-Ray 09/08/17 16:56 IMPRESSION: NO ACUTE RADIOGRAPHIC FINDING IN THE CHEST. Abdomen/Pelvis CT 09/09/17 00:00 IMPRESSION: 1. Limited study as above. 2. Partially calcified liver masses, suspicious. Does the patient have known primary malignancy elsewhere? This could represent liver metastatic disease. 3. Stool retention. Fibroid uterus. Other findings as above. No overt bowel obstruction or urinary obstruction. Head CT 09/11/17 00:00 IMPRESSION: No significant interval changes compared to the previous study. No acute changes. Other findings as noted above EVIDENCE OF ACUTE STROKE: NO. Assessment & Plan - Diagnosis (1) Cardiomyopathy Qualifiers: Cardiomyopathy type: unspecified Qualified Code(s): I42.9 - Cardiomyopathy , unspecified Is this a current diagnosis for this admission?: Yes (2) Multiple myeloma Qualifiers: Multiple myeloma remission status: unspecified Qualified Code(s): C90.00 - Multiple myeloma not having achieved remission Is this a current diagnosis for this admission?: Yes (3) Type 2 diabetes mellitus Qualifiers: Diabetes mellitus complication status: with hyperosmolarity Diabetes mellitus complication detail: without coma Diabetes mellitus termination clerk insulin use: with skilled nursing use Qualified Code(s): E11.00 - Type 2 diabetes mellitus with hyperosmolarity without nonketotic hyperglycemic-hyperosmolar coma ([facility] Z79.4 - shelter (current) use of insulin; Z79.4 - terminal press operator ( current) use of insulin; Z79.4 - shelter (current) use of insulin; Z79.4 - terminal press operator (current) use of insulin Is this a current diagnosis for this admission?: Yes (4) Urinary tract infection Qualifiers: Urinary tract infection type: acute cystitis Is this a current diagnosis for this admission?: Yes - Notes Notes: Patient could be volume depleted because of uncontrolled diabetes. Recommend cautious hydration and reinstitution of entresto therapy as well as beta- rach therapy. May use Midodrin if needed. Cardiomyopathy: Patient noted to have significantly depressed LVEF, but best estimate being 35%. Patient mostly has diffuse hypokinesia. No significant valvular abnormalities noted. Patient tolerating advancement of cardiomyopathy therapy with beta-rach and entresto. Follow electrolytes. However did not receive entresto today. Multiple myeloma and other Suspected hematologic malignancy: We will leave management to oncologist. Diabetes: Coming under satisfactory control. Blood sugars are improved. Hospitalist managing the condition. Urinary tract infection: Continue with antibiotic therapy. Status post pacemaker placement: Pacemaker seems to be functioning normally. Patient will benefit from OT PT referral as patient looks quite debilitated. - Time Time with patient: Greater than 35 minutes - CODE STATUS was discussed, patient remains full code. Surrogate decision-maker unchanged. Multiple medical problems were addressed. More than 50% of the time spent coordinating care, discussing management plans with involved caregivers. Management plans discussed with involved personnels. Medical decision making was of moderate to high complexity, patient's has multiple comorbidities. Patient needs close observation. There is high probability of decompensation. Will follow patient very closely from cardiac standpoint. Medications reviewed and adjusted accordingly: Yes
[2017-09-17] MEDS: ATORVASTATIN CALCIUM 40 MG TABLET PO SCH (21:33)
[2017-09-17] MEDS: GABAPENTIN 300 MG CAPSULE PO SCH (21:34)
[2017-09-17] MEDS: INSULIN GLARGINE,HUM.REC.ANLOG 300 UNIT/3 ML INSULN.PEN SUBCUT SCH (22:49)
[2017-09-18 05:25] LABS: ANION GAP 7 (5-19); BLOOD UREA NITROGEN 32 mg/dL (7-20); CALCIUM 9.2 mg/dL (8.4-10.2); CARBON DIOXIDE 25 mmol/L (22-30); CHLORIDE 106 mmol/L (98-107); GLUCOSE 119 mg/dL (75-110); POTASSIUM 4.2 mmol/L (3.6-5.0); SODIUM 137.8 mmol/L (137-145)
[2017-09-18] MEDS: INSULIN LISPRO 100 UNIT/ML 3 ML VIAL SUBCUT SCH ×3 (07:27→17:34)
[2017-09-18] MEDS: CARVEDILOL 3.125 MG TABLET PO SCH ×2 (09:08→23:14)
[2017-09-18] MEDS: LEVETIRACETAM 500 MG TABLET PO SCH ×2 (09:08→23:14)
[2017-09-18] MEDS: SERTRALINE HCL 50 MG TABLET PO SCH (09:09)
[2017-09-18] MEDS: ASPIRIN 81 MG TABLET, ENT COATED PO SCH (09:09)
[2017-09-18] MEDS: HYDROCORTISONE SOD SUCCINATE INJ/PF 100 MG/2 ML SDV IV SCH ×2 (09:09→23:14)
[2017-09-18] MEDS: INSULIN LISPRO 100 UNIT/ML 3 ML VIAL SUBCUT PRN ×3 (13:00→23:13)
--- NOTE | 2017-09-18 17:37 | PDOC PROGRESS REPORT ---
Subjective Progress Note for:: 09/18/17 Subjective:: The patient is a 62-year-old male admitted with sepsis secondary to urinary tract infection. She was initially admitted to the intensive care unit with hyperosmolar nonketotic coma. Her diabetes remains poorly controlled with persistent hyperglycemia. The patient has a diagnosis of underlying multiple myeloma or lymphoma. I see notes in the chart reflecting both diagnoses. She had persistent hypothermia which is now resolved. Cardiology has been consulted for evaluation of cardiomyopathy. The etiology and time course are unknown. The patient has been tolerating carvedilol. I stopped and dressed toe on 09/17/2017 secondary to hypotension. Palliative care was consulted. Patient remains a full code. The plan will be discharged to [facility] facility when the patient is medically stable. Reason For Visit: UTI POSSIBLE SEPSIS Physical Exam Vital Signs: Temp Pulse Resp BP Pulse Ox 95.4 F L 62 16 91/59 L 99 09/18/17 12:00 09/18/17 12:04 09/18/17 12:04 09/18/17 12:04 09/18/17 12:04 Intake & Output 09/17/17 09/18/17 09/19/17 06:59 06:59 06:59 Intake Total 937 1303 360 Output Total 0 Balance 937 1303 360 Weight 64.1 kg 70.2 kg Additional comments: The patient is more awake and interactive today. She denies any complaints. She was appropriate and able to answer my questions. Her facial appearance demonstrates very poor dentition but is otherwise unremarkable. Her lungs are clear to auscultation bilaterally. She continues to have a left IJ in place. She also has a port in the right anterior chest. Her lungs are clear to auscultation bilaterally. Her cardiac exam is regular without murmurs, gallops or rubs. The abdomen is soft and flat. Bowel sounds present. She does not have guarding or rebound noted and there are no hernias or masses present. Patient has an excoriation over the left anterior salter which appears to be healed and very old. Otherwise, her skin is clean, dry and intact. Results Laboratory Results: 09/17/17 04:39 09/18/17 04:40 09/18/17 04:40 Sodium 137.8 Potassium 4.2 Chloride 106 Carbon Dioxide 25 Anion Gap 7 BUN 32 H Creatinine 0.94 Est GFR ( Amer) > 60 Est GFR (Non-Af Amer) > 60 Glucose 119 H Calcium 9.2 09/08/17 20:08 Troponin I 0.055 Impressions: Chest X-Ray 09/08/17 16:56 IMPRESSION: NO ACUTE RADIOGRAPHIC FINDING IN THE CHEST. Abdomen/Pelvis CT 09/09/17 00:00 IMPRESSION: 1. Limited study as above. 2. Partially calcified liver masses, suspicious. Does the patient have known primary malignancy elsewhere? This could represent liver metastatic disease. 3. Stool retention. Fibroid uterus. Other findings as above. No overt bowel obstruction or urinary obstruction. Head CT 09/11/17 00:00 IMPRESSION: No significant interval changes compared to the previous study. No acute changes. Other findings as noted above EVIDENCE OF ACUTE STROKE: NO. Assessment & Plan - Diagnosis (1) Acute renal failure Is this a current diagnosis for this admission?: Yes (2) Acute metabolic encephalopathy Is this a current diagnosis for this admission?: Yes (3) Cardiomyopathy Qualifiers: Cardiomyopathy type: unspecified Qualified Code(s): I42.9 - Cardiomyopathy , unspecified Is this a current diagnosis for this admission?: Yes (4) Constipation Is this a current diagnosis for this admission?: Yes (5) Hyperosmolar non-ketotic state in patient with type 2 diabetes mellitus Is this a current diagnosis for this admission?: Yes (6) Hypothermia Qualifiers: Encounter type: initial encounter Qualified Code(s): T68.XXXA - Hypothermia , initial encounter Is this a current diagnosis for this admission?: Yes (7) Multiple myeloma Qualifiers: Multiple myeloma remission status: unspecified Qualified Code(s): C90.00 - Multiple myeloma not having achieved remission Is this a current diagnosis for this admission?: Yes (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 Is this a current diagnosis for this admission?: Yes (9) Sepsis Is this a current diagnosis for this admission?: Yes (10) Urinary tract infection Qualifiers: Urinary tract infection type: acute cystitis Is this a current diagnosis for this admission?: Yes (11) Thrombocytopenia Is this a current diagnosis for this admission?: Yes - Time Time Spent with patient: 15-24 minutes - Inpatient Certification Medical Necessity: Significant Comorbidiites Make Outpatient Treatment Too Risky , Need Close Monitoring Due to Risk of Patient Decompensation, Risk of Complication if Not Cared For in Hospital - Plan Summary Plan Summary: 1. The patient's sepsis appears to be clinically improving. 2. The patient's urine culture grew Chasity. She remains on nystatin. 3. The patient has an underlying history of multiple myeloma and lymphoma. Dr. Willem Belcher of oncology is following. He is trying to get the patient's records from [place]. 4. The patient's acute renal failure resolved after rehydration. 5. In regards to the patient's hyperglycemia, I decreased the patient's dose of hydrocortisone 09/16/17. Yesterday, after discussion she does agree to a diabetic diet. Since that she will be going to a [facility] facility where they will help to control her dietary choices I will start here and then increase her insulin regimen as needed. 09/16/17, I did go up on her basal dose , her sliding scale dose and I added insulin coverage with meals. 6. Constipation, resolved for now. 7. Cardiomyopathy: Dr. Quintana is evaluating and following. Appreciate assistance from Dr. Quintana. Please note that interested was discontinued on 09/17 secondary to hypotension. 8. Hypothermia, currently core temperature is > 97 9. Acute metabolic encephalopathy appears to be resolving. 10. Thrombocytopenia: Resolved. 11. Not further weaned the dose of hydrocortisone today.
--- NOTE | 2017-09-18 19:39 | PDOC PROGRESS REPORT ---
Subjective Progress Note for:: 09/18/17 Subjective:: Patient looks a little better today. Patient today more alert. Pt is denying any chest arm or neck discomfort. Patient denying any PND, orthopnea. Patient denied any sustained palpitations, dizziness, syncope, near syncope. Patient denying any fever chills. Patient denying any other significant discomfort. Patient is maintaining sinus with ventricular paced rhythm. Review of systems: Rest review of systems negative. Medications: Medications have been reviewed. Reason For Visit: UTI POSSIBLE SEPSIS Physical Exam Vital Signs: Temp Pulse Resp BP Pulse Ox 96.0 F L 69 20 95/55 L 100 09/18/17 16:00 09/18/17 15:26 09/18/17 15:26 09/18/17 15:26 09/18/17 15:26 Intake & Output 09/17/17 09/18/17 09/19/17 06:59 06:59 06:59 Intake Total 937 1303 1073 Output Total 0 Balance 937 1303 1073 Weight 64.1 kg 70.2 kg Exam: GENERAL: Thin built and looks debilitated and in no acute distress. Alert and oriented x3 HEAD: Atraumatic, normocephalic. EYES: Pupils equal round and reactive to light, extraocular movements intact, sclera anicteric, conjunctiva are normal. ENT: TMs normal, nares patent, oropharynx clear without exudates. Moist mucous membranes. No oral ulcerations or bleeding gums noted NECK: supple without lymphadenopathy. Trachea is central. No cervical or axillary lymphadenopathy noted. Carotids are 2+, JVD WNL LUNGS: Respiration seems nonlabored, no significant accessory muscle action noted. Breath sounds clear to auscultation bilaterally and equal noted. No wheezes rales or rhonchi noted. No significant dullness noted on percussion. CHEST: Palpation of the chest wall shows no significant chest wall tenderness. No other significant abnormalities noted. 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 ABDOMEN: Soft, no significant tenderness appreciated, normoactive bowel sounds. No guarding, no rebound. No rigidity noted . No masses appreciated. EXTREMITIES: Pedal pulses are 1-2+, no calf tenderness noted. No clubbing or cyanosis.trace to 1+ pedal edema noted NEUROLOGICAL: Focused neurological exam showed no significant neurologic deficit. Normal speech, no focal weakness appreciated. PSYCH: Normal mood, normal affect. Judgment and insight within normal limits. SKIN: No significant ecchymosis, rash, ulcerations or signs of pruritus noted. MUSCULOSKELETAL EXAM: No significant joint swelling noted. Results Laboratory Results: 09/17/17 04:39 09/18/17 04:40 09/18/17 04:40 Sodium 137.8 Potassium 4.2 Chloride 106 Carbon Dioxide 25 Anion Gap 7 BUN 32 H Creatinine 0.94 Est GFR ( Amer) > 60 Est GFR (Non-Af Amer) > 60 Glucose 119 H Calcium 9.2 09/08/17 20:08 Troponin I 0.055 EKG Comments: Telemetry shows sinus rhythm with ventricular paced rhythm. Impressions: Chest X-Ray 09/08/17 16:56 IMPRESSION: NO ACUTE RADIOGRAPHIC FINDING IN THE CHEST. Abdomen/Pelvis CT 09/09/17 00:00 IMPRESSION: 1. Limited study as above. 2. Partially calcified liver masses, suspicious. Does the patient have known primary malignancy elsewhere? This could represent liver metastatic disease. 3. Stool retention. Fibroid uterus. Other findings as above. No overt bowel obstruction or urinary obstruction. Head CT 09/11/17 00:00 IMPRESSION: No significant interval changes compared to the previous study. No acute changes. Other findings as noted above EVIDENCE OF ACUTE STROKE: NO. Assessment & Plan - Diagnosis (1) Cardiomyopathy Qualifiers: Cardiomyopathy type: unspecified Qualified Code(s): I42.9 - Cardiomyopathy , unspecified Is this a current diagnosis for this admission?: Yes (2) Multiple myeloma Qualifiers: Multiple myeloma remission status: unspecified Qualified Code(s): C90.00 - Multiple myeloma not having achieved remission Is this a current diagnosis for this admission?: Yes (3) Type 2 diabetes mellitus Qualifiers: Diabetes mellitus complication status: with hyperosmolarity Diabetes mellitus complication detail: without coma Diabetes mellitus dedicated intermodal truck driver insulin use: with detention use Qualified Code(s): E11.00 - Type 2 diabetes mellitus with hyperosmolarity without nonketotic hyperglycemic-hyperosmolar coma ([facility]); Z79.4 - [facility] (current) use of insulin; Z79.4 - [facility] ( current) use of insulin; Z79.4 - [facility] (current) use of insulin; Z79.4 - superintendent marine oil terminal (current) use of insulin Is this a current diagnosis for this admission?: Yes (4) Urinary tract infection Qualifiers: Urinary tract infection type: acute cystitis Is this a current diagnosis for this admission?: Yes - Notes Notes: Cardiomyopathy: Possibly related to chemotherapy or some other cause. Currently patient on the small dose of beta-rach carvedilol. Gradually go up to a minimum of 6.25 as this was the lowest dose shown to improve LVEF also gradually institute entresto therapy as tolerated by blood pressure. Oncology following for myeloma/lymphoma problems Diabetes: Initially uncontrolled but now coming under control. Urinary tract infection: Coming under control. - Time Time with patient: 15-25 minutes - CODE STATUS was discussed, patient remains full code. Surrogate decision-maker unchanged. Multiple medical problems were addressed. More than 50% of the time spent coordinating care, discussing management plans with involved caregivers. Management plans discussed with involved personnels. Medical decision making was of moderate to high complexity , patient's has multiple comorbidities. Medications reviewed and adjusted accordingly: Yes
[2017-09-18] MEDS: GABAPENTIN 300 MG CAPSULE PO SCH (23:14)
[2017-09-18] MEDS: ATORVASTATIN CALCIUM 40 MG TABLET PO SCH (23:14)
[2017-09-18] MEDS: INSULIN GLARGINE,HUM.REC.ANLOG 300 UNIT/3 ML INSULN.PEN SUBCUT SCH (23:15)
[2017-09-19 06:06] LABS: ANION GAP 6 (5-19); BLOOD UREA NITROGEN 30 mg/dL (7-20); CALCIUM 8.9 mg/dL (8.4-10.2); CARBON DIOXIDE 25 mmol/L (22-30); CHLORIDE 105 mmol/L (98-107); GLUCOSE 238 mg/dL (75-110); POTASSIUM 4.4 mmol/L (3.6-5.0); SODIUM 135.9 mmol/L (137-145)
[2017-09-19] MEDS: ASPIRIN 81 MG TABLET, ENT COATED PO SCH (11:59)
[2017-09-19] MEDS: INSULIN LISPRO 100 UNIT/ML 3 ML VIAL SUBCUT PRN ×3 (11:59→22:09)
[2017-09-19] MEDS: SERTRALINE HCL 50 MG TABLET PO SCH (12:00)
[2017-09-19] MEDS: LEVETIRACETAM 500 MG TABLET PO SCH ×2 (12:00→21:39)
[2017-09-19] MEDS: CARVEDILOL 3.125 MG TABLET PO SCH ×2 (12:00→21:39)
[2017-09-19] MEDS: INSULIN LISPRO 100 UNIT/ML 3 ML VIAL SUBCUT SCH ×3 (12:01→17:48)
[2017-09-19] MEDS: HYDROCORTISONE SOD SUCCINATE INJ/PF 100 MG/2 ML SDV IV SCH (12:01)
[2017-09-19] MEDS: POLYETHYLENE GLYCOL 3350 POWDER 17 GM/1 PACKET PO PRN (12:02)
--- NOTE | 2017-09-19 14:20 | PDOC PROGRESS REPORT ---
Subjective Progress Note for:: 09/19/17 Subjective:: The patient is a 62-year-old male admitted with sepsis secondary to urinary tract infection. She was initially admitted to the intensive care unit with hyperosmolar nonketotic coma. Her diabetes remains poorly controlled with persistent hyperglycemia. The patient has a diagnosis of underlying multiple myeloma or lymphoma. I see notes in the chart reflecting both diagnoses. She had persistent hypothermia. Cardiology has been consulted for evaluation of cardiomyopathy. The etiology and time course are unknown. The patient has been tolerating carvedilol. I stopped and dressed toe on 09/17/2017 secondary to hypotension. Palliative care was consulted. Patient remains a full code. The plan will be discharged to [facility] facility when the patient is medically stable. Reason For Visit: UTI POSSIBLE SEPSIS Physical Exam Vital Signs: Temp Pulse Resp BP Pulse Ox 99.2 F 69 14 102/66 100 09/19/17 11:12 09/19/17 11:12 09/19/17 11:12 09/19/17 11:12 09/19/17 11:12 Intake & Output 09/18/17 09/19/17 09/20/17 06:59 06:59 06:59 Intake Total 1303 1238 118 Output Total 0 0 Balance 1303 1238 118 Weight 70.2 kg 72.1 kg Additional comments: The patient is more awake today. This morning, she was complaining about her breakfast. She wanted oatmeal but she only got a bagel. She knows that she is in the hospital. Her conversation is more appropriate today. Her facial appearance demonstrates severe dental caries. When I asked her about this she said that her teeth were fine. Her lungs are clear to auscultation bilaterally. Her cardiac exam is regular. I do not appreciate any murmurs, gallops or rubs. The abdomen is soft and flat. Bowel sounds are present in the lower quadrants. She does not have guarding or rebound present and there are no hernias or masses present. The lower extremities are unremarkable. She has some scaling of the skin on the left salter which appears to be an old abrasion. Results Laboratory Results: 09/17/17 04:39 09/19/17 05:10 09/19/17 05:10 Sodium 135.9 L Potassium 4.4 Chloride 105 Carbon Dioxide 25 Anion Gap 6 BUN 30 H Creatinine 1.02 Est GFR ( Amer) > 60 Est GFR (Non-Af Amer) 55 L Glucose 238 H Calcium 8.9 09/08/17 20:08 Troponin I 0.055 Impressions: Chest X-Ray 09/08/17 16:56 IMPRESSION: NO ACUTE RADIOGRAPHIC FINDING IN THE CHEST. Abdomen/Pelvis CT 09/09/17 00:00 IMPRESSION: 1. Limited study as above. 2. Partially calcified liver masses, suspicious. Does the patient have known primary malignancy elsewhere? This could represent liver metastatic disease. 3. Stool retention. Fibroid uterus. Other findings as above. No overt bowel obstruction or urinary obstruction. Head CT 09/11/17 00:00 IMPRESSION: No significant interval changes compared to the previous study. No acute changes. Other findings as noted above EVIDENCE OF ACUTE STROKE: NO. Assessment & Plan - Diagnosis (1) Acute renal failure Is this a current diagnosis for this admission?: Yes (2) Acute metabolic encephalopathy Is this a current diagnosis for this admission?: Yes (3) Cardiomyopathy Qualifiers: Cardiomyopathy type: unspecified Qualified Code(s): I42.9 - Cardiomyopathy , unspecified Is this a current diagnosis for this admission?: Yes (4) Constipation Is this a current diagnosis for this admission?: Yes (5) Hyperosmolar non-ketotic state in patient with type 2 diabetes mellitus Is this a current diagnosis for this admission?: Yes (6) Hypothermia Qualifiers: Encounter type: initial encounter Qualified Code(s): T68.XXXA - Hypothermia , initial encounter Is this a current diagnosis for this admission?: Yes (7) Multiple myeloma Qualifiers: Multiple myeloma remission status: unspecified Qualified Code(s): C90.00 - Multiple myeloma not having achieved remission Is this a current diagnosis for this admission?: Yes (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 Is this a current diagnosis for this admission?: Yes (9) Sepsis Is this a current diagnosis for this admission?: Yes (10) Urinary tract infection Qualifiers: Urinary tract infection type: acute cystitis Is this a current diagnosis for this admission?: Yes (11) Thrombocytopenia Is this a current diagnosis for this admission?: Yes - Time Time Spent with patient: 15-24 minutes - Inpatient Certification Medical Necessity: Risk of Complication if Not Cared For in Hospital, Other - Arrangements are being made for discharge to correction facility, however, until the patient's temperature derangements are more stable she cannot be discharged. - Plan Summary Plan Summary: 1. The patient's sepsis appears to be clinically improving. 2. The patient's urine culture grew Chasity. She remains on nystatin. 3. The patient has an underlying history of multiple myeloma and lymphoma. Dr. Willem Belcher of oncology is following. He is trying to get the patient's records from [place]. 4. The patient's acute renal failure resolved after rehydration. 5. In regards to the patient's hyperglycemia, I decreased the patient's dose of hydrocortisone 2. He had been refusing a diabetic diet, but on 2017 she agreed to a diabetic diet. Since that she will be going to a correction facility where they will help to control her dietary choices I will start here and then increase her insulin regimen as needed. 09/16/17, I did go up on her basal dose, her sliding scale dose and I added insulin coverage with meals. 6. Constipation, resolved for now. 7. Cardiomyopathy: Dr. Quintana is evaluating and following. Appreciate assistance from Dr. Quintana. Please note that interested was discontinued on 09/17 secondary to hypotension. 8. Hypothermia, currently core temperature is > 97 the patient is still intermittently requiring a Soraida hugger. 9. Acute metabolic encephalopathy appears to be resolving. 10. Thrombocytopenia: Resolved. 11. Will wean hydrocortisone today.
[2017-09-19] MEDS: INSULIN GLARGINE,HUM.REC.ANLOG 300 UNIT/3 ML INSULN.PEN SUBCUT SCH (21:39)
[2017-09-19] MEDS: ATORVASTATIN CALCIUM 40 MG TABLET PO SCH (21:39)
[2017-09-19] MEDS: GABAPENTIN 300 MG CAPSULE PO SCH (21:39)
[2017-09-20] MEDS: PREDNISONE 20 MG TABLET PO SCH ×2 (06:11→13:13)
[2017-09-20 06:58] LABS: ANION GAP 6 (5-19); BLOOD UREA NITROGEN 28 mg/dL (7-20); CALCIUM 8.8 mg/dL (8.4-10.2); CARBON DIOXIDE 27 mmol/L (22-30); CHLORIDE 105 mmol/L (98-107); GLUCOSE 82 mg/dL (75-110); SODIUM 137.8 mmol/L (137-145)
[2017-09-20] MEDS ORDERED: FLUDROCORTISONE ACETATE 0.1 MG TABLET PO SCH (07:00)
[2017-09-20] MEDS: INSULIN LISPRO 100 UNIT/ML 3 ML VIAL SUBCUT SCH ×2 (09:59→13:13)
[2017-09-20] MEDS: SERTRALINE HCL 50 MG TABLET PO SCH (10:00)
[2017-09-20] MEDS: ASPIRIN 81 MG TABLET, ENT COATED PO SCH (10:00)
[2017-09-20] MEDS: CARVEDILOL 3.125 MG TABLET PO SCH (10:00)
[2017-09-20] MEDS: LEVETIRACETAM 500 MG TABLET PO SCH (10:00)
--- NOTE | 2017-09-20 11:20 | PDOC DISCHARGE SUMMARY ---
General - Admit/Disc Date/PCP Admission Date/Primary Care Provider: 09/08/17 18:24 IVONE ZARATE, Discharge Date: 09/20/17 - Discharge Diagnosis (1) Acute renal failure Is this a current diagnosis for this admission?: Yes (2) Acute metabolic encephalopathy Is this a current diagnosis for this admission?: Yes (3) Cardiomyopathy Is this a current diagnosis for this admission?: Yes (4) Constipation Is this a current diagnosis for this admission?: Yes (5) Hyperosmolar non-ketotic state in patient with type 2 diabetes mellitus Is this a current diagnosis for this admission?: Yes (6) Hypothermia Is this a current diagnosis for this admission?: Yes (7) Multiple myeloma Is this a current diagnosis for this admission?: Yes (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 Is this a current diagnosis for this admission?: Yes (9) Sepsis Is this a current diagnosis for this admission?: Yes (10) Urinary tract infection Is this a current diagnosis for this admission?: Yes (11) Thrombocytopenia Is this a current diagnosis for this admission?: Yes - Additional Information Resuscitation Status: Full Code Discharge Diet: Diabetic Discharge Activity: Supervised Activity Home Medications: Aspirin [Aspirin EC] 81 mg PO DAILY 09/10/17 Atorvastatin Calcium [Lipitor 40 mg Tablet] 40 mg PO QHS 09/10/17 Carvedilol [Coreg 3.125 mg Tablet] 3.125 mg PO Q12 09/10/17 Clopidogrel Bisulfate [Plavix 75 mg Tablet] 75 mg PO DAILY 09/10/17 Gabapentin [Neurontin 300 mg Capsule] 300 mg PO QHS 09/10/17 Lacosamide [Vimpat 50 mg Tablet] 50 mg PO BID 09/10/17 Levetiracetam [Keppra] 1,000 mg PO BID 09/10/17 Sertraline HCl [Zoloft 50 mg Tablet] 50 mg PO DAILY 09/10/17 Dextrose [Glutose 40% Gel 15 gm Tube] 15 gm PO PRN PRN tube 09/20/17 Dextrose [Glutose 40% Gel 15 gm Tube] 30 gm PO PRN PRN tube 09/20/17 Fludrocortisone Acetate [Florinef 0.1 mg Tablet] 0.1 mg PO DAILY@0700 tablet Glucagon,Human Recombinant [Glucagen Inj 1 mg Vial] 1 mg IM PRN PRN vial Insulin Glargine,Hum.rec.anlog [Lantus Insulin 100 Unit/mL] 20 unit SUBCUT QHS insuln.pen 09/20/17 Insulin Lispro [Humalog Insulin (Lispro) 100 unit/mL] 0 - 12 unit SUBCUT ACHSP PRN unit 09/20/17 Insulin Lispro [Humalog Insulin (Lispro) 100 unit/mL] 5 unit SUBCUT AC unit Polyethylene Glycol 3350 [Miralax Powder 17 gm/Packet] 17 gm PO DAILYP PRN powd.pack 09/20/17 Prednisone [Deltasone 20 mg Tablet] 5 mg PO BID@0600,1400 tablet 09/20/17 History of Present Illness History of Present Illness: BISHNU WAYNE is a 62 year old female. This is a 62-year-old woman with a complicated medical history including insulin requiring diabetes, seizures, multiple myeloma (followed in [place] by oncology), lupus, CHF unclear type, hypertension. The patient was usual state of health until today when the patient's son states that she has been confused and has had generalized weakness. He states that she had a syncopal episode while in the car. EMS was called to the scene and the patient was hypotensive with a blood pressure of 94/ 63. She was brought to the ER where she was found to have a glucose of greater than 800. She also has urinary tract infection. At this point she is found to have hyperosmolar nonketotic state with urinary tract infection. Broader workup is in process. Patient is admitted to the hospitalist service and will be going to the ICU. Hospital Course Hospital Course: NIYAH WAYNE is a 62 year old female admitted with sepsis and nonketotic hyperosmolar coma. The patient's sepsis has resolved. Upon presentation the patient was suspected to have a urinary tract infection. Her urine culture grew Chasity. She remains on nystatin therapy. The patient has an underlying history of multiple myeloma and/or lymphoma. Dr. Willem Belcher of oncology was consulted. He is going to obtain the records from the patient's previous oncologist in [place], [place]. At this time, there are no acute oncologic issues. Dr. Willem Belcher has made the patient a follow-up appointment after discharge. The patient had acute renal failure during this hospitalization that resolved with hydration. The patient has had persistent hyperglycemia during this hospitalization. Initially, she was refusing to follow a diabetic diet. However, after additional education she does agree to a diabetic diet. She will be discharged on a diabetic diet. I did increase her basal glargine dose. I also added mealtime insulin coverage during this hospitalization and it is recommended that she continue a sliding scale with parameters. The patient has had intermittent constipation during this hospitalization. MiraLAX has been alleviating her constipation. The patient is noted to have a cardiomyopathy. The etiology is unknown. Cardiology has been consulted and the patient has been following with Dr. Quintana. Perhaps, the patient was exposed to a chemotherapy agent that led to cardiomyopathy. In any event, the patient will be discharged on carvedilol. Dr. Quintana has recommended that the patient be placed and titrated to a minimum dose of 6.25 mg p.o. twice daily of carvedilol. The patient was placed on Entresto during this hospitalization but she became hypotensive and lethargic. Therefore, and Entresto has been discontinued. The patient was also noted to be hypothermic during this hospitalization. This is resolved. She may have a component of adrenal insufficiency. She will be discharged on prednisone and Florinef. Prior to prednisone and Florinef the patient was treated with hydrocortisone during this hospitalization. The patient has an underlying seizure disorder. She did not have any seizure activity during this hospitalization. She was continued on Keppra. She will be discharged on both Keppra and Vimpat as these were her medications prior to this hospitalization. During this hospitalization the patient has suspicious findings in the liver on abdominal CT scan. Again, she will follow-up with oncology after discharge. Physical Exam Vital Signs: Temp Pulse Resp BP Pulse Ox 98.1 F 62 18 135/82 H 100 09/20/17 07:31 09/20/17 07:31 09/20/17 07:31 09/20/17 07:31 09/20/17 07:31 Intake & Output 09/19/17 09/20/17 09/21/17 06:59 06:59 06:59 Intake Total 1238 478 Output Total 0 0 Balance 1238 478 Weight 72.1 kg 73 kg Additional comments: Patient has become much more awake and interactive over the last 72 hours. Her cognition is appropriate. She asks questions and answers questions appropriately. Her facial appearance is remarkable for some cushingoid features. She also has extremely poor dentition. Some of her teeth are loose and look like they need to be pulled. Her lungs are clear to auscultation bilaterally. Her cardiac exam is regular without murmurs, gallops or rubs. The abdomen is soft and flat. Bowel sounds are present in all 4 quadrants. She does not have guarding or rebound noted and there are no hernias or masses present. The lower extremities demonstrate 1+ nonpitting edema. The patient has what appears to be an old excoriation on the left salter. Otherwise, there are no acute skin lesions or rashes. Results Laboratory Results: 09/17/17 04:39 09/20/17 06:30 09/20/17 06:30 Sodium 137.8 Potassium 4.0 Chloride 105 Carbon Dioxide 27 Anion Gap 6 BUN 28 H Creatinine 0.81 Est GFR ( Amer) > 60 Est GFR (Non-Af Amer) > 60 Glucose 82 Calcium 8.8 09/08/17 20:08 Troponin I 0.055 Impressions: Chest X-Ray 09/08/17 16:56 IMPRESSION: NO ACUTE RADIOGRAPHIC FINDING IN THE CHEST. Abdomen/Pelvis CT 09/09/17 00:00 IMPRESSION: 1. Limited study as above. 2. Partially calcified liver masses, suspicious. Does the patient have known primary malignancy elsewhere? This could represent liver metastatic disease. 3. Stool retention. Fibroid uterus. Other findings as above. No overt bowel obstruction or urinary obstruction. Head CT 09/11/17 00:00 IMPRESSION: No significant interval changes compared to the previous study. No acute changes. Other findings as noted above EVIDENCE OF ACUTE STROKE: NO. Plan Discharge Plan: 1. Discharge to skilled facility today 2. Follow-up appointments after discharge will be arranged with Dr. Willem Belcher and Dr. Quintana. Time Spent: Greater than 30 Minutes
[2017-09-20 12:43] VITALS: BP 103/78
[2017-09-20] MEDS: INSULIN LISPRO 100 UNIT/ML 3 ML VIAL SUBCUT PRN (13:13)
--- NOTE | 2017-09-21 17:32 | PDOC PROGRESS REPORT ---
Subjective Progress Note for:: 09/19/17 Subjective:: Patient looks better today. Patient today more alert. Pt is denying any chest arm or neck discomfort. Patient denying any PND, orthopnea. Patient denied any sustained palpitations, dizziness, syncope, near syncope. Patient denying any fever chills. Patient denying any other significant discomfort. Patient is maintaining sinus with ventricular paced rhythm. Review of systems: Rest review of systems negative. Medications: Medications have been reviewed. Reason For Visit: UTI POSSIBLE SEPSIS Physical Exam Vital Signs: Temp Pulse Resp BP Pulse Ox 98.3 F 66 14 105/66 96 09/19/17 15:08 09/19/17 15:08 09/19/17 15:08 09/19/17 15:08 09/19/17 15:08 Intake & Output 09/18/17 09/19/17 09/20/17 06:59 06:59 06:59 Intake Total 1303 1238 478 Output Total 0 0 Balance 1303 1238 478 Weight 70.2 kg 72.1 kg Exam: GENERAL: well-nourished and in no acute distress. Alert and oriented x3 HEAD: Atraumatic, normocephalic. EYES: Pupils equal round and reactive to light, extraocular movements intact, sclera anicteric, conjunctiva are normal. ENT: TMs normal, nares patent, oropharynx clear without exudates. Moist mucous membranes. No oral ulcerations or bleeding gums noted NECK: supple without lymphadenopathy. Trachea is central. No cervical or axillary lymphadenopathy noted. Carotids are 2+, JVD WNL LUNGS: Respiration seems nonlabored, no significant accessory muscle action noted. Few bibasilar fine crackles noted. No wheezes rales or rhonchi noted. No significant dullness noted on percussion. CHEST: Palpation of the chest wall shows no significant chest wall tenderness. No other significant abnormalities noted. 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 ABDOMEN: Soft, no significant tenderness appreciated, normoactive bowel sounds. No guarding, no rebound. No rigidity noted . No masses appreciated. EXTREMITIES: Pedal pulses are 1-2+, no calf tenderness noted. No clubbing or cyanosis.trace to 1+ pedal edema noted NEUROLOGICAL: Focused neurological exam showed no significant neurologic deficit. Normal speech, no focal weakness appreciated. PSYCH: Normal mood, normal affect. Judgment and insight within normal limits. SKIN: No significant ecchymosis, rash, ulcerations or signs of pruritus noted. MUSCULOSKELETAL EXAM: No significant joint swelling noted. Results Laboratory Results: 09/17/17 04:39 09/19/17 05:10 09/19/17 05:10 Sodium 135.9 L Potassium 4.4 Chloride 105 Carbon Dioxide 25 Anion Gap 6 BUN 30 H Creatinine 1.02 Est GFR ( Amer) > 60 Est GFR (Non-Af Amer) 55 L Glucose 238 H Calcium 8.9 09/08/17 20:08 Troponin I 0.055 Impressions: Chest X-Ray 09/08/17 16:56 IMPRESSION: NO ACUTE RADIOGRAPHIC FINDING IN THE CHEST. Abdomen/Pelvis CT 09/09/17 00:00 IMPRESSION: 1. Limited study as above. 2. Partially calcified liver masses, suspicious. Does the patient have known primary malignancy elsewhere? This could represent liver metastatic disease. 3. Stool retention. Fibroid uterus. Other findings as above. No overt bowel obstruction or urinary obstruction. Head CT 09/11/17 00:00 IMPRESSION: No significant interval changes compared to the previous study. No acute changes. Other findings as noted above EVIDENCE OF ACUTE STROKE: NO. Assessment & Plan - Diagnosis (1) Cardiomyopathy Qualifiers: Cardiomyopathy type: unspecified Qualified Code(s): I42.9 - Cardiomyopathy , unspecified Is this a current diagnosis for this admission?: Yes (2) Multiple myeloma Qualifiers: Multiple myeloma remission status: unspecified Qualified Code(s): C90.00 - Multiple myeloma not having achieved remission Is this a current diagnosis for this admission?: Yes (3) Type 2 diabetes mellitus Qualifiers: Diabetes mellitus complication status: with hyperosmolarity Diabetes mellitus complication detail: without coma Diabetes mellitus watermaster insulin use: with watermaster use Qualified Code(s): E11.00 - Type 2 diabetes mellitus with hyperosmolarity without nonketotic hyperglycemic-hyperosmolar coma ([facility]); Z79.4 - watermaster (current) use of insulin; Z79.4 - jail ( current) use of insulin; Z79.4 - jail (current) use of insulin; Z79.4 - watermaster (current) use of insulin Is this a current diagnosis for this admission?: Yes (4) Urinary tract infection Qualifiers: Urinary tract infection type: acute cystitis Is this a current diagnosis for this admission?: Yes - Notes Notes: Cardiomyopathy: Medical management is been gradually optimized. Patient has been asked to report any sustained palpitations, syncope, near syncope. Multiple myeloma: Currently is stable. There is also suspicion that patient may have lymphoma. Patient being followed by oncologist. Diabetes with hyper osmolar state. This is coming under better control. UTI: This is coming under better control. Continue current antibiotic and antifungal agents. - Time Time with patient: 15-25 minutes - CODE STATUS was discussed, patient remains full code. Surrogate decision-maker unchanged. Multiple medical problems were addressed. More than 50% of the time spent coordinating care, discussing management plans with involved caregivers. Management plans discussed with involved personnels. Medical decision making was of moderate to high complexity , patient's has multiple comorbidities. Medications reviewed and adjusted accordingly: Yes
--- NOTE | 2017-09-21 17:37 | PDOC PROGRESS REPORT ---
Subjective Progress Note for:: 09/20/17 Subjective:: Patient was seen on morning rounds on September 20. Progress report somehow caught missed and was dictated later. Patient was seen on morning rounds prior to discharge. She was given my card for her to schedule a follow-up appointment. Pt is denying any chest arm or neck discomfort. Patient denying any PND, orthopnea. Patient denied any sustained palpitations, dizziness, syncope, near syncope. Patient denying any fever chills. Patient denying any other significant discomfort. Patient is maintaining sinus with ventricular paced rhythm. Review of systems: Rest review of systems negative. Medications: Medications have been reviewed. Reason For Visit: UTI POSSIBLE SEPSIS Physical Exam Vital Signs: Temp Pulse Resp BP Pulse Ox 98.2 F 67 18 103/78 100 09/20/17 11:42 09/20/17 11:42 09/20/17 11:42 09/20/17 11:42 09/20/17 11:42 Intake & Output 09/20/17 09/21/17 09/22/17 06:59 06:59 06:59 Intake Total 478 Output Total 0 Balance 478 Weight 73 kg Exam: GENERAL: well-nourished and in no acute distress. Alert and oriented x3 HEAD: Atraumatic, normocephalic. EYES: Pupils equal round and reactive to light, extraocular movements intact, sclera anicteric, conjunctiva are normal. ENT: TMs normal, nares patent, oropharynx clear without exudates. Moist mucous membranes. No oral ulcerations or bleeding gums noted NECK: supple without lymphadenopathy. Trachea is central. No cervical or axillary lymphadenopathy noted. Carotids are 2+, JVD WNL LUNGS: Respiration seems nonlabored, no significant accessory muscle action noted. Breath sounds clear to auscultation bilaterally and equal noted. No wheezes rales or rhonchi noted. No significant dullness noted on percussion. CHEST: Palpation of the chest wall shows no significant chest wall tenderness. No other significant abnormalities noted. 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 ABDOMEN: Soft, no significant tenderness appreciated, normoactive bowel sounds. No guarding, no rebound. No rigidity noted . No masses appreciated. EXTREMITIES: Pedal pulses are 1-2+, no calf tenderness noted. No clubbing or cyanosis.trace pedal edema noted NEUROLOGICAL: Focused neurological exam showed no significant neurologic deficit. Normal speech, no focal weakness appreciated. PSYCH: Normal mood, normal affect. Judgment and insight within normal limits. SKIN: No significant ecchymosis, rash, ulcerations or signs of pruritus noted. MUSCULOSKELETAL EXAM: No significant joint swelling noted. Results Laboratory Results: 09/17/17 04:39 09/20/17 06:30 09/08/17 20:08 Troponin I 0.055 EKG Comments: Telemetry strips shows a sensed V paced rhythm. No sustained tachycardia or bradycardia arrhythmias noted. Impressions: Chest X-Ray 09/08/17 16:56 IMPRESSION: NO ACUTE RADIOGRAPHIC FINDING IN THE CHEST. Abdomen/Pelvis CT 09/09/17 00:00 IMPRESSION: 1. Limited study as above. 2. Partially calcified liver masses, suspicious. Does the patient have known primary malignancy elsewhere? This could represent liver metastatic disease. 3. Stool retention. Fibroid uterus. Other findings as above. No overt bowel obstruction or urinary obstruction. Head CT 09/11/17 00:00 IMPRESSION: No significant interval changes compared to the previous study. No acute changes. Other findings as noted above EVIDENCE OF ACUTE STROKE: NO. Assessment & Plan - Diagnosis (1) Cardiomyopathy Qualifiers: Cardiomyopathy type: unspecified Qualified Code(s): I42.9 - Cardiomyopathy , unspecified Is this a current diagnosis for this admission?: Yes (2) Multiple myeloma Qualifiers: Multiple myeloma remission status: unspecified Qualified Code(s): C90.00 - Multiple myeloma not having achieved remission Is this a current diagnosis for this admission?: Yes (3) Type 2 diabetes mellitus Qualifiers: Diabetes mellitus complication status: with hyperosmolarity Diabetes mellitus complication detail: without coma Diabetes mellitus fci insulin use: with fci use Qualified Code(s): E11.00 - Type 2 diabetes mellitus with hyperosmolarity without nonketotic hyperglycemic-hyperosmolar coma ([facility]); Z79.4 - clinical veterinarian (current) use of insulin; Z79.4 - clinical veterinarian ( current) use of insulin; Z79.4 - [facility] (current) use of insulin; Z79.4 - clinical veterinarian (current) use of insulin Is this a current diagnosis for this admission?: Yes (4) Urinary tract infection Qualifiers: Urinary tract infection type: acute cystitis Is this a current diagnosis for this admission?: Yes - Notes Notes: Patient could not tolerate entresto as it caused drop in blood pressure. Currently after discussion with hospitalist, it was felt that patient will be discharged on her home medication and further adjustment in cardiomyopathy management would be gradually done as an outpatient. Patient encouraged to make follow-up appointment. Patient will also need to follow with oncologist. Patient advised salt and fluid restriction. Patient was also advised on good control of blood pressure. - Time Time with patient: 15-25 minutes - CODE STATUS was discussed, patient remains full code. Surrogate decision-maker unchanged. Multiple medical problems were addressed. More than 50% of the time spent coordinating care, discussing management plans with involved caregivers. Management plans discussed with involved personnels. Medical decision making was of moderate to high complexity , patient's has multiple comorbidities. Medications reviewed and adjusted accordingly: Yes
== END 2017-09-20 16:01 | DRG 871 ==
LOC: ER 16:09 → EH 18:24 → 3S 09-09 15:37 → 3W 09-16 13:28
PROVIDERS: ADMIT Student in an Organized Health Care Education/Training Program; ATTEND Student in an Organized Health Care Education/Training Program
PROC: 02HV33Z Insertion of Infusion Device into Superior Vena Cava, Percutaneous Approach (ICD-10-PCS; principal; 2017-09-08)
DX: A41.9 Sepsis, unspecified organism (principal); E11.11 Type 2 diabetes mellitus with ketoacidosis with coma; G93.41 Metabolic encephalopathy; N17.9 Acute kidney failure, unspecified; C90.00 Multiple myeloma not having achieved remission; I42.9 Cardiomyopathy, unspecified; B37.49 Other urogenital candidiasis; C85.93 Non-Hodgkin lymphoma, unspecified, intra-abdominal lymph nodes; I11.0 Hypertensive heart disease with heart failure; I50.9 Heart failure, unspecified; L93.0 Discoid lupus erythematosus; I95.9 Hypotension, unspecified; E86.0 Dehydration; D69.6 Thrombocytopenia, unspecified; I87.8 Other specified disorders of veins; R47.81 Slurred speech; K59.00 Constipation, unspecified; G40.909 Epilepsy, unspecified, not intractable, without status epilepticus; R68.0 Hypothermia, not associated with low environmental temperature; Z79.01 Long term (current) use of anticoagulants; Z79.82 Long term (current) use of aspirin; Z79.4 Long term (current) use of insulin; Z79.899 Other long term (current) drug therapy; Z95.0 Presence of cardiac pacemaker
CPT/HCPCS: 36415; 36591; 70450; 71045; 74176; 80048; 80053; 81001; 82272; 82533; 82550; 82553; 82803; 82962; 83605; 83690; 83735; 84100; 84439; 84443; 84481; 84484; 85025; 85027; 87040; 87086; 93005; 93010; 93306; 96360; 99285; C1751; G8978-GP; G8979-GP; J0692; J0696; J1644; J1720; J1815; J3480; J3490; J7030; J7040; J7512

== ENCOUNTER 2017-10-09 05:03 | Emergency (ER) | payer MEDICARE ==
[2017-10-09] MEDS ORDERED: DEXTROSE 10%-1/4 NORMAL SALINE 250 ML IV ONE (05:19)
[2017-10-09] MEDS ORDERED: DEXTROSE 50%-WATER 25 GM/50 ML DISP.SYRIN IV ONE (05:21)
--- NOTE | 2017-10-09 05:29 | ER Document Report ---
ED Blood Sugar Problem - General Mode of Arrival: Medic Information source: Patient, Emergency Med Personnel Cannot obtain history due to: Dementia TRAVEL OUTSIDE OF THE [place] IN LAST 30 DAYS: No - HPI Patient complains to provider of: FALL, LOW BLOOD SUGAR <NAHED ACEVES - Last Filed: 10/09/17 07:19> <DUYEN ANGELES - Last Filed: 10/09/17 12:31> - General Chief Complaint: Low Blood Sugar Stated Complaint: POSSIBLE LOW BLOOD SUGAR/FALL Time Seen by Provider: 10/09/17 05:05 - HPI Notes: Patient is here via EMS with history of fall and hypoglycemia. I am unable to completely obtain a history due to the patient's lack of communication. Family history we have was given by the alf staff as well as the EMS staff. Apparently the patient was found on the ground after an unwitnessed fall and was noted to be hypoglycemic with a blood sugar of 30. She has been given glucagon by EMS and is noted to have a blood sugar of 69 currently. Patient is very limited information but denies any significant complaints. She was recently admitted to the hospital here for sepsis and urinary tract infection. She is currently at [facility] for nursing care. No further information is able to be obtained at the current time due to the patient's lack of communication. ( NAHED ACEVES) - Related Data Allergies/Adverse Reactions: No Known Allergies Allergy (Verified 08/03/17 17:12) Past Medical History - Social History Family History: Hypertension - Past Medical History Cardiac Medical History: Reports: Hx Congestive Heart Failure Neurological Medical History: Reports: Hx Seizures Endocrine Medical History: Reports: Hx Diabetes Mellitus Type 2 Renal/ Medical History: Denies: Hx Peritoneal Dialysis Past Surgical History: Reports: Hx Pacemaker - Dual-chamber, Other - Right chest wall port <NAHED ACEVES - Last Filed: 10/09/17 07:19> - Social History Smoking Status: Never Smoker <DUYEN ANGELES - Last Filed: 10/09/17 12:31> Review of Systems - Review of Systems -: Yes All other systems reviewed and negative <NAHED ACEVES - Last Filed: 10/09/17 07:19> Physical Exam <NAHED ACEVES - Last Filed: 10/09/17 07:19> <DUYEN ANGELES - Last Filed: 10/09/17 12:31> - Vital signs Vitals: Pulse 70 10/09/17 05:05 - Notes Notes: GENERAL: cooperative, nontoxic, no distress. HEAD: normocephalic, atraumatic EYES: conjunctiva pink without discharge, no external redness or swelling. PERRL , EARS: no external swelling, no external redness. No hemotympanum EM NOSE: atraumatic, no external swelling. No bleeding MOUTH/THROAT: mucous membranes moist and pinK. Dried blood around the mouth. Dried blood within the mouth. No obvious laceration identified. Loose left upper central incisor. NECK: soft, supple, c-collar in place, no midline step-offs or crepitus or obvious tenderness. CHEST: no distress, lungs clear and equal throughout. No wheezing, rales, rhonchi. CARDIAC: regular rate and rhythm, no murmur, normal capillary refill, normal pulses. No peripheral edema noted. ABDOMEN: Soft, nontender. No ecchymosis. BACK: No obvious signs of trauma. No ecchymosis. No midline tenderness step- offs or crepitus to palpation of the thoracic or lumbar spine. EXTREMITIES: full range of motion of all extremities. No redness, no swelling. No tenderness to palpation of the extremities. No signs of injury or trauma. NEURO: Awake, will semi-follow commands and answer some questions. No focal deficits, full range of motion of all extremities. PYSCH: appropriate mood, affect. Patient is cooperative. SKIN: pink, warm, dry, no rash. (NAHED ACEVES) Course - Laboratory Result Diagrams: 10/09/17 06:44 10/09/17 05:25 - Diagnostic Test Radiology reviewed: Image reviewed, Reports reviewed - Chest x-ray unremarkable , CT of head and C-spine without acute abnormality. <NAHED ACEVES - Last Filed: 10/09/17 07:19> - Laboratory Result Diagrams: 10/09/17 06:44 10/09/17 05:25 <DUYEN ANGELES - Last Filed: 10/09/17 12:31> - Re-evaluation Re-evalutation: 10/09/17 06:40 At this point the patient is nontoxic appearing with stable vitals. She is noted to have a low rectal temp of 96, she is currently on warm blankets and under the bear hugger. EKG shows a paced rhythm with no obvious ischemic changes. Urinalysis shows no signs of infection. Chest x-ray is negative. CT of the head as well as C-spine show no acute abnormalities. Blood sugar is now up to 25. Remaining electrolytes are unremarkable. Her lactate is normal. Vital signs have remained stable. This point the patient will be observed for the next several hours to ensure that her blood sugar does not significantly drop again. Patient is doing well after the next few hours she can be sent back to her rehab facility. Care will be transferred to the next provider coming in to take over for me this morning. We are currently awaiting her CBC results at this time. 10/09/17 07:19 Patient's CBC is stable from prior admission. VBG is unremarkable. Patient continues to be hypothermic. Consider admission. 10/09/17 07:21 (NAHED ACEVES) 10/09/17 07:28 Assumed care of the patient. She opens her eyes and follows command. Rectal temperature is 94 at this time. She has had a heating blanket on. Accu-Chek is 123. I have called Jeremy Hart MD for admission for episode of hypoglycemia and hypothermia. 10/09/17 07:38 Dr. Hart is not the primary care doctor. I called Dr. Jon the hospitalist and he said to watch the patient until 11 to see if she normalizes her temperature. If her temperature does not normalize we would need to treat her sepsis. I asked if he wanted me to give her any antibiotics and he said do not give any antibiotics. 10/09/17 09:54 Blood sugar dropped to 43 she was not given breakfast. I ordered D5 and a half at 125 an hour and she is drinking cranberry juice and I told him to feed her a pudding. Her forehead is diaphoretic they are rechecking her temperature. 10/09/17 10:30 Accu-Chek now 123 after she ate the pudding and drank some cranberry juice. IV fluid has been stopped and I have asked the nurse to recheck an Accu-Chek in 1 hour. 10/09/17 11:51 Patient more alert and eating samy crackers. She is drinking more cranberry juice. Her Accu-Chek is 126 that is stabilized for an hour. She states she did not eat dinner last night and she was given insulin at 8 PM last night. I will have the nurse ambulate her. Her temperature is up to 97.9. Rochelle is been removed (DUYEN ANGELES) - Vital Signs Vital signs: Temp Pulse Resp BP Pulse Ox 97.9 F 70 20 125/79 100 10/09/17 09:45 10/09/17 05:05 10/09/17 10:01 10/09/17 12:00 10/09/17 12:01 - Laboratory Laboratory results interpreted by me: 10/09/17 10/09/17 10/09/17 05:25 05:25 05:45 WBC RBC Hgb Hct RDW Potassium 3.4 L POC Glucose AST 37 H Alkaline Phosphatase 171 H NT-Pro-B Natriuret Pep 1540 H Total Protein 5.5 L Albumin 3.1 L Urine Glucose (UA) 50 H 10/09/17 10/09/17 10/09/17 05:58 06:44 07:16 WBC 3.5 L RBC 2.80 L Hgb 8.9 L Hct 26.9 L RDW 17.2 H Potassium POC Glucose 225 H 123 H AST Alkaline Phosphatase NT-Pro-B Natriuret Pep Total Protein Albumin Urine Glucose (UA) 10/09/17 10/09/17 10/09/17 09:39 10:30 11:26 WBC RBC Hgb Hct RDW Potassium POC Glucose 46 L 133 H 129 H AST Alkaline Phosphatase NT-Pro-B Natriuret Pep Total Protein Albumin Urine Glucose (UA) - EKG Interpretation by Me Additional EKG results interpreted by me: 10/09/17 05:28 AV dual paced EKG heart rate is 61, no obvious ischemic changes noted. (NAHED ACEVES) Discharge <NAHED ACEVES - Last Filed: 10/09/17 07:19> <DUYEN ANGELES - Last Filed: 10/09/17 12:31> - Discharge Clinical Impression: Hypoglycemia Fall Qualifiers: Encounter type: initial encounter Qualified Code(s): W19.XXXA - Unspecified fall, initial encounter Hypothermia Qualifiers: Encounter type: initial encounter Qualified Code(s): T68.XXXA - Hypothermia, initial encounter Condition: Good Disposition: HOME-ASSISTED LIVING Instructions: Hypoglycemia ([facility]) Additional Instructions: you must eat dinner if you get your nightime insulin eat all your meals and snacks to er any concerns
--- NOTE | 2017-10-09 05:42 | RADIOLOGY REPORT (SQ) ---
EXAM DESCRIPTION: CHEST SINGLE VIEW CLINICAL HISTORY: ALTERED COMPARISON: 09/08/2017 FINDINGS: Single frontal view of the chest. Left-sided dual-lead pacemaker. Right-sided port with tip in the high right atrium. Heart is not enlarged. Low lung volumes. No consolidation, pneumothorax, or pleural effusion. No displaced rib fractures identified. Upper abdominal soft tissues are unremarkable. IMPRESSION: 1. No acute pulmonary process identified. Low lung volumes.
[2017-10-09 05:58] LABS: ALANINE AMINOTRANSFERASE 50 U/L (9-52); ALBUMIN 3.1 g/dL (3.5-5.0); ALKALINE PHOSPHATASE 171 U/L (38-126); ANION GAP 7 (5-19); ASPARTATE AMINO TRANSFERASE 37 U/L (14-36); BILIRUBIN,TOTAL 0.3 mg/dL (0.2-1.3); BLOOD UREA NITROGEN 17 mg/dL (7-20); CALCIUM 9.1 mg/dL (8.4-10.2); CARBON DIOXIDE 30 mmol/L (22-30); CHLORIDE 105 mmol/L (98-107); CREATINE KINASE 74 U/L (30-135); GLUCOSE 75 mg/dL (75-110); LIPASE 62.1 U/L (23-300); POTASSIUM 3.4 mmol/L (3.6-5.0); SODIUM 142.3 mmol/L (137-145); TOTAL PROTEIN 5.5 g/dL (6.3-8.2)
[2017-10-09 06:10] LABS: APPEARANCE,URINE CLEAR; BILIRUBIN,URINE NEGATIVE (NEGATIVE); COLOR,URINE STRAW; GLUCOSE, URINE 50 mg/dL (NEGATIVE); KETONES,URINE NEGATIVE (NEGATIVE); LEUKOCYTE ESTERASE,URINE NEGATIVE (NEGATIVE); NITRITE,URINE NEGATIVE (NEGATIVE); PROTEIN,URINE NEGATIVE (NEGATIVE); URINE SPECIFIC GRAVITY 1.005; UROBILINOGEN,URINE NEGATIVE mg/dL (<2.0)
[2017-10-09 06:10] LABS: TROPONIN I 0.015 ng/mL
--- NOTE | 2017-10-09 06:30 | RADIOLOGY REPORT (SQ) ---
EXAM DESCRIPTION: CT HEAD WITHOUT CLINICAL HISTORY: ALTERED COMPARISON: 09/08/2017 TECHNIQUE: Axial CT of the head obtained from the skull apex to the skull base without contrast. FINDINGS: No acute intracranial hemorrhage identified. No mass, mass effect, shift of the midline, abnormal extra-axial fluid collection or CT evidence of acute ischemic change identified. The ventricular system and sulcal spaces are mildly enlarged compatible with mild cerebral atrophy. Scattered areas of hypodensity throughout the supratentorial white matter are nonspecific and may be related to chronic small vessel ischemic change. 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 The visualized paranasal sinuses and the mastoids are clear. No skull fracture identified. Visualized orbits and globes are unremarkable. Atherosclerotic calcification of the intracranial internal carotid arteries. DLP:1162.97 mGy-cm IMPRESSION: 1. No acute intracranial abnormality by CT criteria. This exam was performed according to our departmental dose-optimization program, which includes automated exposure control, adjustment of the mA and/or kV according to patient size and/or use of iterative reconstruction technique.
--- NOTE | 2017-10-09 06:33 | RADIOLOGY REPORT (SQ) ---
EXAM DESCRIPTION: CT CERVICAL SPINE WITHOUT CLINICAL HISTORY: ALTERED COMPARISON: None available TECHNIQUE: Axial CT of the cervical spine obtained without contrast. FINDINGS: Alignment of the cervical spine is maintained without evidence of subluxation. The atlantoaxial, atlantodental, and occipitoatlantal intervals are preserved. No fracture identified. Vertebral body height preserved. Prevertebral soft tissues are unremarkable. Mild multilevel loss of intervertebral disc height with endplate spondylosis and uncovertebral spurring, most severe C5/6. Minimal facet arthropathy. No significant osseous central canal nor neural foraminal narrowing. Visualized skull base is intact. No fracture of the visualized facial bones. Visualized mastoid air cells and paranasal sinuses are well aerated. Visualized thyroid is unremarkable. No cervical lymphadenopathy. No pneumothorax in the visualized lung apices. DLP: 255.73 mGy-cm IMPRESSION: 1. No acute fracture or subluxation of the cervical spine. This exam was performed according to our departmental dose-optimization program, which includes automated exposure control, adjustment of the mA and/or kV according to patient size and/or use of iterative reconstruction technique.
[2017-10-09 06:55] LABS: ABSOLUTE EOSINOPHILS # (AUTO) 0.1 10^3/uL (0.0-0.6); ABSOLUTE MONOCYTES (AUTO) 0.3 10^3/uL (0.1-1.4); ABSOLUTE NEUT (AUTO) 2.1 10^3/uL (1.7-8.2); BASOPHILS % (AUTO) 0.6 % (0-2); EOSINOPHILS % (AUTO) 1.5 % (0-6); HEMATOCRIT 26.9 % (36.0-47.0); HEMOGLOBIN 8.9 g/dL (12.0-15.5); LYMPHOCYTES % (AUTO) 28.4 % (13-45); MEAN CORPUSCULAR HEMOGLOBIN 31.8 pg (27.0-33.4); MEAN CORPUSCULAR HGB CONC 33.1 g/dL (32.0-36.0); MONOCYTES % (AUTO) 8.3 % (3-13); PLATELET COUNT 150 10^3/uL (150-450); RED CELL DISTRIBUTION WIDTH 17.2 % (11.5-14.0); SEGMENTED NEUTROPHILS % (AUTO) 61.2 % (42-78); TOTAL CELLS COUNTED % (AUTO) 100 %; WHITE BLOOD COUNT 3.5 10^3/uL (4.0-10.5)
[2017-10-09 07:01] LABS: MEAN CORPUSCULAR VOLUME 96 fl (80-97)
[2017-10-09 07:15] LABS: VENOUS BLOOD BASE EXCESS 0.4 mmol/L; VENOUS BLOOD HCO3 26.8 mmol/L (20-32); VENOUS BLOOD PH 7.33 (7.30-7.42)
[2017-10-09] MEDS ORDERED: DEXTROSE 5%-1/2 NORMAL SALINE 1,000 ML IV PRN (10:19)
[2017-10-09 12:16] VITALS: BP 125/79
--- NOTE | 2017-10-09 22:17 | EKG REPORT ---
SEVERITY:- ABNORMAL ECG - ATRIAL-VENTRICULAR DUAL-PACED RHYTHM : Confirmed by: Reena Quintana 09-Oct-2017 22:17:06
== END 2017-10-09 13:19 | disposition home health service (06) ==
LOC: ER 05:03
DX: E11.649 Type 2 diabetes mellitus with hypoglycemia without coma (principal); T68.XXXA Hypothermia, initial encounter; W19.XXXA Unspecified fall, initial encounter; Y92.129 Unspecified place in nursing home as the place of occurrence of the external cause; I50.9 Heart failure, unspecified; Z95.0 Presence of cardiac pacemaker
CPT/HCPCS: 93005; 36591; 99284; 51701; 96374; 36415; 87040; 87086; 82962; 82550; 83690; 85025; 80053; 81001; 84484; 82803; 83605; 83880; 71045; 70450; 72125; 93010; J3490